=== PATIENT | female | born 1950 | race Caucasian/White ===

== ENCOUNTER → 2019-09-07 | Day surgery (SDC) | payer OTHER ==
--- NOTE | 2019-09-07 12:15 | RAD REPORT ---
EXAM DESCRIPTION: US - Breast Core BX w/US Guidance - 09/07/2019 11:37 am CLINICAL HISTORY: R92.8 COMPARISON: August 23 ultrasound and mammogram studies TECHNIQUE: The patient presents for ultrasound-guided biopsy of a previously detailed 15 mm right br east mass. The ultrasound-guided core biopsy procedure, risks and alternatives were discussed with the patient i n detail. After answering all questions, both oral and written consent were obtained. Time out proced ure was performed. The patient had no contraindicated allergy or medication history. Preliminary imaging identified the right breast mass. The breast was prepped and draped in the usua l sterile fashion. From an inferior approach, skin and deeper tissues were anesthetized with 1% lidoc josé. Under direct sonographic visualization a 14 gauge vacuum assisted core biopsy needle was advanc ed and placed at the margin of the mass. There were a total of 2 core biopsies obtained under direct sonographic guidance. The mass did appear to have distortion in contour supporting transit of the bio psy needle through the small mass. At the conclusion of the procedure a localization clip was placed under sonographic guidance. Post biopsy imaging showed no hematoma or measurable bleeding within the breast. Hemostasis was obtai deana at the skin site with a sterile bandage placed. Post procedure care and precaution instructions were given to the patient. IMPRESSION: 1. Ultrasound-guided core biopsy was performed of the right breast mass. All obtained ma terial was given to pathology for histologic assessment. 2. Post biopsy localization clip was placed under ultrasound guidance.
== END ==
LOC: DS 09:37
PROVIDERS: ATTEND Internal Medicine
DX: C50.911 Malignant neoplasm of unspecified site of right female breast (principal); Z17.1 Estrogen receptor negative status [ER-]
CPT/HCPCS: 19083; 88305

== ENCOUNTER 2019-10-17 07:05 | Day surgery (SDC) | payer OTHER ==
--- NOTE | 2019-10-15 15:49 | RAD REPORT ---
EXAM DESCRIPTION: RAD - Chest Pa And Lat (2 Views) - 10/15/2019 3:36 pm CLINICAL HISTORY: pre op, pending right mastectomy COMPARISON: None TECHNIQUE: Frontal and lateral views of the chest were obtained. FINDINGS: The lungs are normal volume with no mass or pulmonary nodule identifiable. No acute infilt rate. No significant failure or volume overload. Patient has a mild prominence of the interstitial pa ttern believed to be baseline. Heart size is normal and central vasculature is within normal limits. No pleural effusion or pneu mothorax seen. No acute bony finding noted. No aortic abnormality. IMPRESSION: No acute cardiopulmonary process.
[2019-10-15 16:01] LABS: Absolute Lymphocytes (CBC) 1.3 K/uL (0.7-4.9); Basophils % 0.8 % (0-1.3); Hematocrit 35.9 % (36.0-45.0); Lymphocytes % 22.9 % (15.3-44.8); MPV 9.1 fL (7.6-11.3); RBC Red Blood Cell Count 4.29 M/uL (3.86-4.86)
[2019-10-15 16:09] LABS: BUN Blood Urea Nitrogen 18 mg/dL (7-18); Bicarbonate 27 mmol/L (21-32); Glucose Level 87 mg/dL (74-106); Potassium 3.9 mmol/L (3.5-5.1); Sodium Level 139 mmol/L (136-145)
--- NOTE | 2019-10-16 10:57 | EKG ---
Test Date: 2019-10-15 Test Time: 15:14:42 [employer] Glazer: CHELSEA MEASUREMENT RESULTS: Intervals: Rate: 63 MA: 184 QRSD: 94 QT: 458 QTc: 468 [place]: P: 67 MA: 184 QRS: -39 T: 62 INTERPRETIVE STATEMENTS: Normal sinus rhythm Left axis deviation Abnormal ECG No previous ECG available for comparison Electronically Signed On 10-16-19 10:54:07 CDT by Alejandro Ramirez
[2019-10-17] MEDS ORDERED: CEFAZOLIN/SWI 1gm 1 GM/10 ML SYR ONE (07:44)
[2019-10-17] MEDS ORDERED: Ringers Lactate 1,000 ML IV ONE (07:44)
[2019-10-17] MEDS ORDERED: METHYLENE BLUE 0.5% 10 ML AMP ONE (07:55)
--- NOTE | 2019-10-17 08:46 | RAD REPORT ---
EXAM DESCRIPTION: NM - Lymphoscintigraphy - 10/17/2019 8:19 am CLINICAL HISTORY: Breast cancer COMPARISON: None. TECHNIQUE: Four injections of 0.1 millicuries technetium filtered sulfur colloid administered into t he the chris arerolar region of the right breast. The injections were placed at Twelve o'clock, 3 o'cl ock, 6 o'clock and 9 o'clock positions. Subsequently a scintigram was obtained which demonstrated the radiotracer within these locations. IMPRESSION: Right breast lymphoscintigram
--- NOTE | 2019-10-17 08:55 | RAD REPORT ---
EXAM DESCRIPTION: US - Brst,Preop NL Wire Init w/Guid - 10/17/2019 8:45 am CLINICAL HISTORY: Breast cancer FINDINGS: The skin and breast tissues were anesthetize with Lidocaine. Under sonographic guidance a 5 cm Kopan's hook wire was placed into the the dominant right breast mass within the upper-outer quad rant. The patient experienced no immediate complication. IMPRESSION: Ultrasound-guided wire localization of the dominant right breast mass
[2019-10-17] MEDS ORDERED: FENTANYL CITR 100 MCG/2 ML ONE ×2 (09:26→10:13)
[2019-10-17] MEDS ORDERED: propofoL 200 MG/20 ML VIAL IV ONE (09:26)
[2019-10-17] MEDS ORDERED: ROCURONIUM 50 MG/5 ML VIAL IV ONE (09:26)
[2019-10-17] MEDS ORDERED: ONDANSETRON 4 MG/2 ML VIAL ONE ×2 (09:27→10:40)
[2019-10-17] MEDS ORDERED: dexAMETHasone 10 MG/ML VIAL ONE (09:27)
[2019-10-17] MEDS ORDERED: LIDOCAINE 2% MPF 5 ML VIAL ONE (09:27)
[2019-10-17] MEDS ORDERED: GLYCOPYRROLATE 0.2 MG/ML SYR ONE (11:19)
[2019-10-17] MEDS ORDERED: NEOSTIGMINE 1 MG/ML -5 ML ONE (11:19)
[2019-10-17] MEDS ORDERED: MEPERIDINE HCL 25 MG/ML SYR ONE (12:56)
--- NOTE | 2019-10-17 13:17 | OP ---
Date of Procedure: 10/17/2019 Surgeon: Colt Cam MD Woodworker Helper: VY Vincent. Preoperative Diagnosis: Right breast cancer. Postoperative Diagnosis: Right breast cancer. Procedure: Right breast mastectomy with needle localization, sentinel node biopsy, and axillary diss ection. Estimated Blood Loss: Minimal. Specimen: Right breast margins free, sentinel node was positive, and axillary dissection was perform ed. Findings: As above. Anesthesia: General. Complications: None. Drains: TRINO #10 flat x2. Disposition: Patient tolerated the procedure in stable condition, taken to Recovery in good general condition. Description Of Procedure: Patient was brought to the OR and placed in supine position. General anes thesia was begun. Then under sterile condition methylene blue injected around the nipple-areolar com plex and breast massaged and prepped and draped in usual sterile fashion. A sentinel node identified , all counts were recorded in the medical record and then frozen section revealed metastatic disease and axillary dissection had to be performed. First, the breast was removed by creating a 20 x 10 cm ellipse of skin around the needle localization in the upper outer quadrant and then flaps were create d superiorly to the clavicle, medially to the border of the sternum, inferiorly to the insertion of t he rectus abdominis muscle, and laterally to the anterior portion of the latissimus dorsi. All breas t tissues were removed and sent to Pathology. The margin checked revealed the margins were free. Ax illary dissection was performed by identifying the axillary vein, thoracodorsal neurovascular bundle, long thoracic neurovascular bundle. All lymph nodes in this area, they were several and large ones, were removed. 3-0 silk and vascular clips were utilized as necessary. Elvira lymph nodes were samp led as well and then the entire axilla and chest wall was irrigated. Effluent was clear. There was no evidence of bleeding. Subsequently, 2 Olegario-Perez drain, 1 under the flap, 1 in the axilla was placed, secured with 3-0 nylon, then 2-0 chromic and 3-0 chromic were used to approximate the subcuta neous tissue and close the skin. Sterile dressing was applied. Patient was awakened, taken to [facility] in good general condition. Discharge Note: The patient will go to day surgery and home when stable. Disposition: Home. Condition: Stable. Discharge Instructions: Resume home medications and diet. Activity as tolerated. No heavy lifting. Keep dressing clean and dry, sponge bathe only. Record TRINO q.12. Bring record to office. Home a lt will be arranged for the patient. Tylenol No. 3 one tablet p.o. q.4 p.r.n. pain, Keflex 500 mg p .o. q.6. JUSTINE/PEDRO Voice ID: [id number] Report ID: [id number]
[2019-10-17] MEDS ORDERED: HYDROMORPHONE HCL 1 MG/ML INJ ONE (13:19)
[2019-10-17] MEDS ORDERED: HYDROCODONE/APAP 7.5/325 MG TAB ONE (14:21)
[2019-10-17 14:43] VITALS: BP 135/77; TEMP 97.2; O2SAT 93
== END 2019-10-17 15:09 | disposition home or self-care (01) ==
LOC: OR 07:05
PROVIDERS: ATTEND Surgery
PROC: 0HTT0ZZ Resection of Right Breast, Open Approach (ICD-10-PCS; principal; 2019-10-17 09:00)
PROC: 07T50ZZ Resection of Right Axillary Lymphatic, Open Approach (ICD-10-PCS; 2019-10-17 09:00)
DX: C50.411 Malignant neoplasm of upper-outer quadrant of right female breast (principal); C77.3 Secondary and unspecified malignant neoplasm of axilla and upper limb lymph nodes; Z17.1 Estrogen receptor negative status [ER-]; Z11.59 Encounter for screening for other viral diseases; R94.31 Abnormal electrocardiogram [ECG] [EKG]; J44.9 Chronic obstructive pulmonary disease, unspecified; Z79.899 Other long term (current) drug therapy
CPT/HCPCS: 19307; 38900; 93005; 85025; 80048; 36415; 88331; 88332; 88307 ×3; 71046; 19285; 78195; U0002; J2704; J3010 ×2; J1100; J2175; J1170; J2710; J0690; J7120; J2405 ×2; A9541; 88305; 88333

== ENCOUNTER 2019-12-14 07:53 | Day surgery (SDC) | payer OTHER, SELFPAY ==
[2019-12-12 15:35] LABS: Absolute Lymphocytes (CBC) 0.9 K/uL (0.7-4.9); Basophils % 0.4 % (0-1.3); Hematocrit 34.7 % (36.0-45.0); Lymphocytes % 17.5 % (15.3-44.8); MPV 9.8 fL (7.6-11.3); RBC Red Blood Cell Count 4.07 M/uL (3.86-4.86)
[2019-12-14] MEDS ORDERED: Ringers Lactate 1,000 ML IV ONE (09:17)
[2019-12-14] MEDS ORDERED: ALBUTEROL 2.5 MG/3 ML NEB SOL ONE (09:32)
[2019-12-14] MEDS ORDERED: NS 0.9% VIAL 20 ML ONE (09:49)
[2019-12-14] MEDS ORDERED: HEPARIN 5000 UNIT/ML 1 ML VIAL ONE (09:50)
[2019-12-14] MEDS ORDERED: LIDOCAINE 1% MPF 30 ML VIAL ONE (09:50)
[2019-12-14] MEDS ORDERED: LIDOCAINE 2% MPF 5 ML VIAL ONE (10:18)
[2019-12-14] MEDS ORDERED: propofoL 200 MG/20 ML VIAL IV ONE (10:18)
[2019-12-14] MEDS ORDERED: FENTANYL CITR 100 MCG/2 ML ONE (10:18)
[2019-12-14] MEDS ORDERED: MIDAZOLAM HCL 2 MG/2 ML INJ ONE (10:18)
[2019-12-14] MEDS: CEFAZOLIN/SWI 1gm 0 GM/0 ML SYR ONE ×2 (10:41→10:55)
[2019-12-14] MEDS ORDERED: EPHEDRINE SULF 50 MG/ML VIAL ONE (10:56)
[2019-12-14] MEDS ORDERED: dexAMETHasone 10 MG/ML VIAL ONE (11:13)
--- NOTE | 2019-12-14 11:25 | RAD REPORT ---
EXAM DESCRIPTION: RAD - Fluoroscopy <1 Hour - 12/14/2019 11:19 am CLINICAL HISTORY: Venous catheter insertion. PORT A CATH COMPARISON: Brst,Preop NL Wire Init w/Guid dated 10/17/2019 FINDINGS: Fluoroscopic imaging is submitted from placement of a venous catheter. Details of the pro cedure not available. Fluoroscopy time: 0.8 minutes
[2019-12-14] MEDS ORDERED: KETOROLAC 30 MG/ML INJ ONE (11:29)
--- NOTE | 2019-12-14 11:52 | RAD REPORT ---
EXAM DESCRIPTION: RAD - Chest Single View - 12/14/2019 11:48 am CLINICAL HISTORY: s/p port a cath Chest pain. COMPARISON: Chest Pa And Lat (2 Views) dated 10/15/2019 FINDINGS: Portable technique limits examination quality. Left-sided venous catheter is in place with tip in the SVC. No postprocedure pneumothorax. Mild inter stitial pulmonary edema seen. The heart is moderately enlarged. IMPRESSION: No postprocedure pneumothorax.
[2019-12-14 13:31] VITALS: BP 128/65; TEMP 97.2; O2SAT 100
[2019-12-14] MEDS ORDERED: CEFAZOLIN/SWI 1gm 1 GM/10 ML SYR ONE (13:49)
--- NOTE | 2019-12-14 21:13 | OP ---
Date of Procedure: 12/14/2019 Surgeon: Colt Cam MD Preoperative Diagnosis: Right breast cancer. Postoperative Diagnosis: Right breast cancer. Procedure: Left IJ Port-A-Cath placement and interpretation of intraoperative fluoroscopy. Estimated Blood Loss: Minimal. Specimen: None. Findings: Normal anatomy. Anesthesia: General. Complications: None. The patient tolerated the procedure in stable condition, taken to Recovery in good general condition. Procedure In Detail: The patient was brought to the OR and placed in supine position. General anest hesia begun. The patient was prepped and draped in usual sterile fashion. Marcaine 0.5% was infiltr ated locally and then an 18-gauge needle was used to access the left IJ vein. Guidewire passed and p osition confirmed with fluoroscopy. A 3 cm counterincision was made on the left anterior chest, pock et created, and then catheter tunneled between the 2 wounds and Seldinger technique used. Tip of the catheter was placed in the SVC under fluoroscopy. Catheter cut to appropriate size and attached to the Port-A-Cath device. Port-A-Cath device was attached to the subcutaneous tissue with 3-0 Vicryl a nd then catheter flushed with heparin and port flushed with heparin and packed with heparin with good blood flow. Then, 3-0 chromic used to approximate the subcutaneous tissue and close the skin. Ster ile dressing was applied. The patient was awakened and taken to Recovery in good general condition. The patient will have a chest x-ray and if okay, will go to day surgery and home when stable. Disposition: Home. Condition: Stable. Discharge Instructions: Resume home medications and diet. Activity as tolerated. No heavy lifting. Remove outer dressing in 2 days. Shower. Keep Steri-Strips on at all times. Follow up in offi ce in 2 weeks. Call for appointment. [facility]. JUSTINE/PEDRO Voice ID: [id number] Report ID: [id number]
== END 2019-12-14 12:50 | disposition home or self-care (01) ==
LOC: OR 07:53
PROVIDERS: ATTEND Surgery
PROC: 02HV33Z Insertion of Infusion Device into Superior Vena Cava, Percutaneous Approach (ICD-10-PCS; 2019-12-14)
PROC: 0JH63XZ Insertion of Tunneled Vascular Access Device into Chest Subcutaneous Tissue and Fascia, Percutaneous Approach (ICD-10-PCS; principal; 2019-12-14 09:00)
DX: C50.911 Malignant neoplasm of unspecified site of right female breast (principal); Z20.828 Contact with and (suspected) exposure to other viral communicable diseases; J44.9 Chronic obstructive pulmonary disease, unspecified; Z79.899 Other long term (current) drug therapy
CPT/HCPCS: 85025; 36415; 71045; 36561; U0002; J2704; J1644 ×2; J2250; J3010; J1100; J0690; J7120; C1788; 76000

== ENCOUNTER 2020-05-15 07:38 | Day surgery (SDC) | payer OTHER, SELFPAY ==
[2020-05-15] MEDS ORDERED: Ringers Lactate 1,000 ML IV ONE (08:17)
[2020-05-15] MEDS ORDERED: CEFAZOLIN/SWI 1gm 1 GM/10 ML SYR ONE (08:18)
--- NOTE | 2020-05-15 09:26 | OP ---
Date of Procedure: 05/15/2020 Surgeon: Colt Cam MD Plant Operator Helper: None. Preoperative Diagnosis: Right breast cancer. Postoperative Diagnosis: Right breast cancer. Procedure: Removal of left chest Port-A-Cath. Estimated Blood Loss: Minimal. Specimen: Port-A-Cath device. Findings: Normal anatomy. Anesthesia: MAC. Complications: None. Disposition: The patient tolerated the procedure in stable condition and taken to Recovery in good g eneral condition. Procedure In Detail: The patient was brought to the OR and placed in supine position. MAC anesthesi a began. The patient was prepped and draped in sterile fashion. Lidocaine 1% infiltrated locally. A 15-blade was used to make a 2 cm incision over the Port-A-Cath on the left anterior chest. Subcuta neous tissue divided. Port identified and freed from the surrounding tissue with sharp and blunt dis section and then removed and sent to pathology for identification. Wound irrigated. Bleeding contro lled with cautery and 3-0 chromic used to approximate the subcutaneous tissue and close the skin. St erile dressing was applied. The patient was awakened and taken to Recovery in good general condition . Discharge Note: The patient will go to Day Surgery and home when stable. Disposition: Home. Condition: Stable. Discharge Instructions: Resume home medications and diet. Activity as tolerated. Remove outer dres sing in 2 days. Shower. Keep wound clean and dry. Follow up in my office 2 weeks. Call for appoin tment. Tylenol No.3 one tablet p.o. q.4 p.r.n. pain. /MODL Voice ID: [id number] Report ID: [id number]
[2020-05-15 09:48] VITALS: BP 134/88; TEMP 97.2; O2SAT 97
== END 2020-05-15 10:30 | disposition home or self-care (01) ==
LOC: OR 07:38
PROVIDERS: ATTEND Surgery
PROC: 0JPT0WZ Removal of Totally Implantable Vascular Access Device from Trunk Subcutaneous Tissue and Fascia, Open Approach (ICD-10-PCS; principal; 2020-05-15 08:30)
DX: Z45.2 Encounter for adjustment and management of vascular access device (principal); C50.911 Malignant neoplasm of unspecified site of right female breast; Z20.822 Contact with and (suspected) exposure to COVID-19
CPT/HCPCS: 36415; 84132; 88300; 36590; U0002; J0690; J7120

== ENCOUNTER 2024-12-07 14:55 | Emergency (ER) | payer MEDICARE ==
--- OUTSIDE RECORDS SUMMARY | 2024-12-07 15:07 | XMS REPORT | Continuity of Care Document ---
Author Name Unknown Address [address] [place] [address] [facility] [place] Address [address] [place] [address] Care Team Providers Care Rn Nursery Name Role Phone ANGELINA BOWEN Primary Care Physician Unavailab Angelina Rea Attending Clinician Unavailable Xiomy Le Attending Clinician Unavailable CHAKA JOSÉ Attending Clinician Unavailable DELORIS VARELA Attending Clinician Unavailradha José MD, Chaka Attending Clinician [phone] Cara Devries Attending Clinician Afsaneh Giron Attending Clinician Chaim KEVIN, Marine Ga Attending Clinician Unavail able OLYA HAMMER Attending Clinician Unavailable GÓMEZ ETIENNE Attending Clinician Unavailable Avery LEE, Charley Attending Clinician [phone] Thais LEE, Oracio Amaral Attending Clinician [phone] Sindhu Stevens MD Attending Clinician Doctor Unassigned, [place] Attending Clinician U aust[place]ailSINDHU Bowden Attending Clinician Unavailable Pob, [facility] Attending Clinician UnavailVAMSI Perales Attending Clinician Unavailable Ajibade_O_AH Attending Clinician Unavailable Ige-Zay_J_AH Attending Clinician Unavailable LINDA ALLEN Admitting Clinician Unavailable GÓMEZ ETIENNE Admitting Clinician Unavailable Ajibade_O_AH Admitting Clinician Unavailable Ige-Odunbethany_J_AH Admitting Clinician Unavailable Payers Payer Name Policy Type Policy Number Effective Date Expirati on Date Source [employer] OON [id number] 00:00:00 [employer] (MEDICARE REPLACEMENT HMO) [id number] 2021 00:00:00 [place] [id number] [facility]PLAC[facility]/ADVAN TAGE - HMO) [id number] 00:00:00 Problems Condition Name Condition Details Condition Category Status Onset Date Resolution Date Last Treatment Date Treating Clinician Comments Source Obesity (BMI 30-39.9) Obesity (BMI 30-39.9) Disease Active 10-16 00:00: 00 [facility] Other specified anemias Other specified anemias Disease Active 10-16 00:00: 00 [facility] Fever in adult Fever in adult Disease Active 10-15 00:00: 00 [facility] Septic shock Septic shock Disease Active 10-15 00:00: 00 [facility] Essential hypertensi on Essential hypertensi on Disease Active 09-29 00:00: 00 [facility] Elevated brain natriureti c peptide (BNP) level Elevated brain natriureti c peptide (BNP) level Disease Active 09-29 00:00: 00 [facility] Elevated troponin I level Elevated troponin I level Disease Active 09-29 00:00: 00 [facility] Paroxysmal SVT (supravent ricular tachycardi a) Paroxysmal SVT (supravent ricular tachycardi a) Disease Active 09-29 00:00: 00 [facility] PAF (paroxysma l atrial fibrillati on) PAF (paroxysma l atrial fibrillati on) Disease Active 09-29 00:00: 00 [facility] Encounter for pre-operat jorgito cardiovasc ular clearance Encounter for pre-operat jorgito cardiovasc ular clearance Disease Active 09-29 00:00: 00 [facility] Worried well Worried well Disease Active 09-27 00:00: 00 [facility] No known active problems No known active problems Disease [facility] Hypothyroi dism Hypothyroi dism, unspecifie d Problem [facility] Chronic obstructiv e pulmonary disease Chronic obstructiv e pulmonary disease, unspecifie d Problem [facility] Tobacco user Nicotine dependence , cigarettes , in remission Problem [facility] [id number] Pure hyperchole sterolemia Problem [facility] [id number] Personal history of malignant neoplasm of breast Problem [facility] Decreased hearing Decreased hearing Problem [facility] Hearing loss Hearing loss Problem [facility] Urinary incontinen ce Unspecifie d urinary incontinen ce Problem [facility] Peripheral vascular disease 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 Problem [facility] [id number] Irregular heart beat Problem [facility] [id number] Primary osteoarthr itis of left knee Problem [facility] [id number] Primary osteoarthr itis of right knee Problem [facility] Arthritis of both knees Arthritis of both knees Problem [facility] [id number] Arthritis of knee, right Problem [facility] Thrombophi alfredito Other thrombophi alfredito Problem [facility] [id number] Estrogen receptor negative status [ER-] Problem [facility] Consulting with home care service [facility], active care coordinati on Problem [facility] [id number] Bilateral lower extremity edema Problem [facility] [id number] Inability to acquire transporta tion Problem [facility] [id number] Mild chronic anemia Problem [facility] Transition from self-care to home-healt h care Need for home health care Problem [facility] [id number] Acquired hypothyroi dism Problem [facility] [id number] Chronic bronchitis , unspecifie d chronic bronchitis type Problem [facility] [id number] Primary osteoarthr itis of both knees Problem [facility] [id number] Malignant neoplasm of unspecifie d site of right female breast Problem [facility] Lymphedema Lymphedema Problem [facility] Neutropeni a Neutropeni a, unspecifie d Problem [facility] 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 Problem [facility] 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 Problem [facility] 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 of Tobacco Use [facility] Sex Assigned At [facility] History of Social function 2021-02-23 00:00:00 2021-02-23 00:00:00 [facility] Tobacco use and exposure 2020-12-17 00:00:00 2020-12-17 00:00:00 Former smokeless tobacco user [facility] Smoking Status Start Date Stop Date Source Never Smoker [facility] Ex-smoker 2020-12-17 00:00:00 2020-12-17 00:00:00 [facility] Medications Ordered Medication Name Filled Medication Name Start Date Stop Date Current Medication? Ordering Clinician Indication Dosage Frequency Signature (SIG) Comments Components Source aspirin 81 mg EC tablet 10-24 00:00: 00 Yes [id number] 81mg Take 1 tablet by mouth in the morning. [facility] calcium carbonate 500 mg calcium (1,250 mg) tablet 10-23 00:00: 00 11-23 04:59 :00 Yes [id number] 500mg Take 1 tablet by mouth in the morning and 1 tablet in the evening. Take with meals. Do all this for 30 days. [facility] tranexamic acid (CYKLOKAPRO N) 1,000 mg/10 mL (100 mg/mL) 1,000 mg in NaCl 0.9% (NS) 110 mL V2B IV piggyback tranexamic acid (CYKLOKAPRO N) 1,000 mg/10 mL (100 mg/mL) 1,000 mg in NaCl 0.9% (NS) 110 mL V2B IV piggyback 10-22 22:00: 00 10-22 21:53 :00 Yes 1000mg at 220 mL/hr, 1,000 mg, IV Piggyback, ONCE, 1 dose, On Tue10/22/24 at 1700, Routine [facility] vancomycin (VANCOCIN) 1,000 mg in NaCl 0.9% (NS) 250 mL V2B IV Piggyback vancomycin (VANCOCIN) 1,000 mg in NaCl 0.9% (NS) 250 mL V2B IV Piggyback 10-22 20:15: 00 10-23 20:28 :33 Yes 1000mg 1,000 mg, IV Piggyback, Q12H ABX, 10 doses, First dose on Tue10/22/24 at 1515, Last dose on Tue10/27/24 at 0315, Administer over 60 Minutes, 250 mL, Reason for Anti-Infec tive: Empiric Therapy for Suspected Infection, Empiric Therapy Site: Skin / Soft tissue, Duration of therapy: As Defined in Treatment / Therapy Plan [facility] vancomycin placeholder : dosing by pharmacy 10-22 19:14: 39 10-23 20:28 :33 No Routine, Rx Placeholde r, Starting on Tue10/22/24 at 1414, Until Tue10/23/24 at 1528 [facility] NaCl 0.9% (NS) injection 10 mL 10-22 17:27: 07 10-23 20:28 :33 No 10mL 10 mL, Slow IV Push, PRN, Starting on Tue10/22/24 at 1227, Until Tue10/23/24 at 1528, Routine, line maintenanc e [facility] lidocaine 1% (PF) (XYLOCAINE) injection 5 mL 10-22 17:27: 07 10-22 19:00 :00 No 5mL 5 mL, Subcutaneo us, PRN, 1 dose, Starting on Tue10/22/24 at 1227, Until Tue10/22/24 at 1400, Routine, Local anesthesia [facility] magnesium oxide (MAG-OX 400) 400 mg (241.3 mg magnesium) tablet 400 mg magnesium oxide (MAG-OX 400) 400 mg (241.3 mg magnesium) tablet 400 mg 10-22 14:45: 00 10-23 01:40 :00 Yes 400mg 400 mg, Oral, BID, 2 doses, First dose on Tue10/22/24 at 0945, Last dose on Tue10/22/24 at 2000, Routine [facility] aspirin EC tablet 81 mg aspirin EC tablet 81 mg 10-22 14:00: 00 Yes 81mg 81 mg, Oral, DAILY, First dose on Tue10/22/24 at 0900, Until Discontinu ed, Routine [facility] cholecalcif paris (vitamin D3) tablet 2,000 Units cholecalcif paris (vitamin D3) tablet 2,000 Units 10-22 14:00: 00 10-23 20:28 :33 Yes 2000U 2,000 Units, Oral, DAILY, First dose on Tue10/22/24 at 0900, Until Discontinu ed, Routine [facility] amoxicillin -pot clavulanate (AUGMENTIN) 875-125 mg per tablet 1 tablet amoxicillin -pot clavulanate (AUGMENTIN) 875-125 mg per tablet 1 tablet 10-22 01:00: 00 10-22 20:48 :25 Yes 1{tbl} 1 tablet, Oral, BID, 10 doses, First dose on Tue10/21/24 at 2000, Last dose on Tue10/26/24 at 0800, Routine, Reason for Anti-Infec tive: Documented Infection, Documented Infection Site: Skin / Soft Tissue, Duration of therapy: 10 days [facility] morphine (2 mg/mL) injection 2 mg morphine (2 mg/mL) injection 2 mg 10-21 23:42: 44 10-23 20:28 :33 Yes 2mg 2 mg, Slow IV Push, Q4HPRN, Starting on Tue10/21/24 at 1842, Until Tue10/23/24 at 1528, Routine, Pain (scale 7-10) [facility] traMADoL (ULTRAM) tablet 50 mg traMADoL (ULTRAM) tablet 50 mg 10-21 23:42: 32 10-22 16:01 :23 Yes 50mg 50 mg, Oral, Q6HPRN, Starting on Tue10/21/24 at 1842, Until Tue10/22/24 at 1101, Routine, Pain (scale 4-6) [facility] magnesium oxide (MAG-OX 400) 400 mg (241.3 mg magnesium) tablet 400 mg magnesium oxide (MAG-OX 400) 400 mg (241.3 mg magnesium) tablet 400 mg 10-21 15:30: 00 10-21 17:21 :00 Yes 400mg 400 mg, Oral, ONCE, 1 dose, On Tue10/21/24 at 1030, Routine [facility] vancomycin (VANCOCIN) 1,250 mg in NaCl 0.9% (NS) 250 mL V2B IV Piggyback vancomycin (VANCOCIN) 1,250 mg in NaCl 0.9% (NS) 250 mL V2B IV Piggyback 10-20 02:00: 00 10-22 00:08 :56 Yes 1250mg 1,250 mg, IV Piggyback, Q24H ABX, 5 doses, First dose (after last modificati on) on Tue10/19/24 at 2100, Last dose on Tue10/23/24 at 2100, Administer over 90 Minutes, 250 mL, Reason for Anti-Infec tive: Empiric Therapy for Suspected Infection, Empiric Therapy Site: Skin / Soft tissue, Duration of therapy: 5 days [facility] albuterol (PROVENTIL) 2.5 mg /3 mL (0.083 %) nebulizer solution 2.5 mg 10-19 14:45: 00 10-19 14:41 :00 No 2.5mg 2.5 mg, Inhalation , Once, 1 dose, On Tue10/19/24 at 0945, Routine [facility] sodium chloride 0.9 % irrigation solution 10-19 13:53: 00 Yes PRN, Starting on Tue10/19/24 at 0853, Until Discontinu ed, Intra-op [facility] vancomycin (VANCOCIN) 1 g in sodium chloride 0.9 % irrigation 10-19 13:10: 00 10-22 13:43 :58 No PRN, Starting on Tue10/19/24 at 0810, Until Tue10/22/24 at 0843, 1,000 mL, Intra-op [facility] calcium carbonate (OSCAL-500) tablet 500 mg calcium carbonate (OSCAL-500) tablet 500 mg 10-18 15:00: 00 Yes 500mg 500 mg, Oral, BID MEALS, First dose on Tue10/18/24 at 1000, Until Discontinu ed, Routine [facility] midodrine (PROAMATINE ) tablet 2.5 mg midodrine (PROAMATINE ) tablet 2.5 mg 10-18 01:00: 00 10-21 23:31 :50 Yes 2.5mg 2.5 mg, Oral, TID, First dose (after last modificati on) on Tue10/17/24 at 2000, Until Discontinu ed, Routine [facility] iopamidol (ISOVUE 370-500 mL) injection 82 mL 10-17 22:26: 00 10-17 22:45 :00 No [id number] 82mL 82 mL, Intravenou s, ONCE, 1 dose, On Tue10/17/24 at 1745, Routine [facility] vancomycin (VANCOCIN) 1,250 mg in NaCl 0.9% (NS) 250 mL V2B IV Piggyback vancomycin (VANCOCIN) 1,250 mg in NaCl 0.9% (NS) 250 mL V2B IV Piggyback 10-17 01:00: 00 10-19 11:21 :18 Yes 15mg/kg 1,250 mg (rounded from 1,279.5 mg = 15 mg/kg ?85.3 kg), IV Piggyback, Q24H ABX, 5 doses, First dose on Tue10/16/24 at 2000, Last dose on Tue10/20/24 at 1999, Administer over 90 Minutes, 250 mL, Reason for Anti-Infec tive: Empiric Therapy for Suspected Infection, Empiric Therapy Site: Skin / Soft tissue, Duration of therapy: 5 days [facility] ferrous sulfate tablet 325 mg ferrous sulfate tablet 325 mg 10-16 14:00: 00 10-23 20:28 :33 Yes 325mg 325 mg, Oral, DAILY, First dose on Tue10/16/24 at 0900, Until Discontinu ed, Routine [facility] polyethylen e glycol 3350 powder 17 g polyethylen e glycol 3350 powder 17 g 10-16 14:00: 00 10-23 20:28 :33 Yes 17g 17 g, Oral, DAILY, First dose on Tue10/16/24 at 0900, Until Discontinu ed, Routine [facility] NORepinephr ine (LEVOPHED) 4 mg/250 mL in 0.9% NaCl infusion NORepinephr ine (LEVOPHED) 4 mg/250 mL in 0.9% NaCl infusion 10-16 13:06: 14 10-21 23:42 :18 Yes .05ug/k g/min 0.05-1.5 mcg/kg/min ?85.5 kg (16.0313-4 80.9375 mL/hr, rounded to 16.03-480. 94 mL/hr), IV Infusion, TITRATE, Starting on Tue10/16/24 at 0806, Until Tue10/21/24 at 1842, Routine, MAP Goal > or = 65 mmHg [facility] midodrine (PROAMATINE ) tablet 5 mg midodrine (PROAMATINE ) tablet 5 mg 10-16 13:00: 00 10-17 23:24 :19 Yes 5mg 5 mg, Oral, TID, First dose (after last modificati on) on Tue10/16/24 at 0800, Until Discontinu ed, Routine [facility] calcium gluconate 2 g in NaCl 100 mL (ISO-OSM) RTU IV infusion 2 g calcium gluconate 2 g in NaCl 100 mL (ISO-OSM) RTU IV infusion 2 g 10-16 13:00: 00 10-16 13:58 :00 Yes 2g 2 g, IV Infusion, at 200 mL/hr Administer over 30 Minutes, ONCE, 1 dose, On Tue10/16/24 at 0800, Routine [facility] ipratropium -albuteroL (DUONEB) 0.5 mg-3 mg(2.5 mg base)/3 mL nebulizer solution 3 mL 10-16 11:48: 10 10-23 20:28 :33 No 3mL 3 mL, Inhalation , QIDPRN, Starting on Tue10/16/24 at 0648, Until Tue10/23/24 at 1528, Routine, Wheezing, Shortness of Breath, Bronchospa sm, Chest tightness [facility] midodrine (PROAMATINE ) tablet 2.5 mg midodrine (PROAMATINE ) tablet 2.5 mg 10-16 10:00: 00 10-16 10:41 :00 Yes 2.5mg 2.5 mg, Oral, Once, 1 dose, On Tue10/16/24 at 0500, Routine [facility] ceFEPIme (MAXIPIME) 1,000 mg in NaCl 0.9% (NS) 100 mL MINI-BAG ceFEPIme (MAXIPIME) 1,000 mg in NaCl 0.9% (NS) 100 mL MINI-BAG 10-16 09:00: 00 10-19 05:57 :00 Yes 1000mg 1,000 mg, IV Piggyback, Q8H ABX, 9 doses, First dose (after last reorder) on Tue10/16/24 at 0400, Last dose on Tue10/18/24 at 2000, Administer over 4 Hours, 100 mL, Reason for Anti-Infec tive: Documented Infection, Documented Infection Site: Skin / Soft Tissue, Duration of therapy: Once (ED) [facility] methocarbam oL (ROBAXIN) tablet 500 mg methocarbam oL (ROBAXIN) tablet 500 mg 10-16 06:45: 00 10-23 20:28 :33 Yes 500mg 500 mg, Oral, TID, First dose on Tue10/16/24 at 0145, Until Discontinu ed, Routine [facility] acetaminoph en (TYLENOL) tablet 650 mg acetaminoph en (TYLENOL) tablet 650 mg 10-16 06:39: 36 10-23 20:28 :33 Yes 650mg 650 mg, Oral, Q6HPRN, Starting on Tue10/16/24 at 0139, Until Tue10/23/24 at 1528, Routine, Pain (scale 1-3), Temp > 38 C [facility] NORepinephr ine (LEVOPHED) 4 mg/250 mL in 0.9% NaCl infusion 10-16 04:36: 06 10-16 13:06 :31 No .05ug/k g/min 0.05-1.5 mcg/kg/min ?85.5 kg (16.0313-4 80.9375 mL/hr, rounded to 16.03-480. 94 mL/hr), IV Infusion, TITRATE, Starting on Tue10/15/24 at 2336, Until Tue10/16/24 at 0806, Routine, MAP Goal > or = 65 mmHg [facility] iopamidol (ISOVUE 370-500 mL) injection 75 mL 10-16 04:00: 00 10-16 04:00 :00 No [id number] 75mL 75 mL, Intravenou s, ONCE, 1 dose, On Tue10/15/24 at 2300, Routine [facility] acetaminoph en (OFIRMEV) IV piggyback 1,000 mg 10-16 01:30: 00 10-16 01:43 :00 No 1000mg 1,000 mg, IV Piggyback, at 400 mL/hr Administer over 15 Minutes, ONCE, 1 dose, On Tue10/15/24 at 2030, OLIVIA, Is the patient strict NPO and unable to tolerate oral medication s? Yes [facility] amiodarone 150 mg/100 mL (NEXTERONE) RTU infusion 150 mg 10-16 00:33: 00 10-16 01:25 :00 No 150mg IV Piggyback, at 300 mL/hr, ONCE, 1 dose, On Tue10/15/24 at 1945, OLIVIA, All amiodarone infusions must be administer ed using a 0.22 micron in line filter. Administer via central line if available. Amiodarone infusions with concentrat ions > 2 mg/mL must be administer ed via central line. [facility] midodrine (PROAMATINE ) tablet 2.5 mg 10-16 00:12: 00 10-16 00:31 :00 No 2.5mg 2.5 mg, Oral, ONCE NOW, 1 dose, On Tue10/15/24 at 1915, OLIVIA [facility] NaCl 0.9% (NS) bolus infusion 1,000 mL 10-16 00:11: 00 10-16 01:55 :00 No 1000mL at 999 mL/hr, 1,000 mL, IV Infusion, ONCE, 1 dose, On Tue10/15/24 at 1915, OLIVIA [facility] digoxin (LANOXIN) injection 500 mcg 10-15 22:41: 00 10-15 23:20 :00 No 500ug 500 mcg, Slow IV Push, ONCE, 1 dose, On Tue10/15/24 at 1745, Routine [facility] vancomycin (VANCOCIN) 1,250 mg in NaCl 0.9% (NS) 250 mL V2B IV Piggyback 10-15 22:37: 00 10-16 01:36 :00 No 1250mg 1,250 mg, IV Piggyback, ONCE NOW, 1 dose, On Tue10/15/24 at 1745, Administer over 90 Minutes, 250 mL, Reason for Anti-Infec tive: Documented Infection, Documented Infection Site: Skin / Soft Tissue, Duration of therapy: Once (ED) [facility] ceFEPIme (MAXIPIME) 1,000 mg in NaCl 0.9% (NS) 100 mL MINI-BAG 10-15 22:37: 00 10-15 23:56 :00 No 1000mg 1,000 mg, IV Piggyback, ONCE, 1 dose, On Tue10/15/24 at 1745, Administer over 30 Minutes, 100 mL, Reason for Anti-Infec tive: Documented Infection, Documented Infection Site: Skin / Soft Tissue, Duration of therapy: Once (ED) [facility] NaCl 0.9% (NS) bolus infusion 1,000 mL 10-15 22:30: 00 10-16 00:32 :00 No 1000mL at 999 mL/hr, 1,000 mL, IV Infusion, ONCE, 1 dose, On Tue10/15/24 at 1730, STAT [facility] midodrine (PROAMATINE ) tablet 2.5 mg 10-09 01:00: 00 Yes 2.5mg 2.5 mg, Oral, BID, First dose (after last modificati on) on Tue10/08/24 at 2000, Until Discontinu ed, Routine [facility] methocarbam oL 500 mg tablet 10-08 00:00: 00 11-08 04:59 :00 Yes [id number] 500mg Take 1 tablet by mouth in the morning and 1 tablet at noon and 1 tablet in the evening. Do all this for 30 days. [facility] aspirin 325 mg tablet 10-08 00:00: 00 10-23 00:00 :00 No [id number] 325mg Take 1 tablet by mouth in the morning and 1 tablet in the evening. Do all this for 30 days. [facility] midodrine 2.5 mg tablet 10-08 00:00: 00 10-23 00:00 :00 No [id number] 2.5mg Take 1 tablet by mouth in the morning and 1 tablet in the evening. Do all this for 30 days. [facility] midodrine (PROAMATINE ) tablet 2.5 mg midodrine (PROAMATINE ) tablet 2.5 mg 10-04 13:00: 00 10-08 13:35 :05 Yes 2.5mg 2.5 mg, Oral, TID, First dose (after last modificati on) on Tue10/04/24 at 0800, Until Discontinu ed, Routine [facility] polyethylen e glycol 3350 17 gram powder 10-03 00:00: 00 11-03 04:59 :00 Yes [id number] 17g Take 1 Packet by mouth in the morning for 30 days. [facility] magnesium sulfate in water 2 gram/50 mL (4 %) infusion 2 g magnesium sulfate in water 2 gram/50 mL (4 %) infusion 2 g 10-02 14:00: 00 10-02 15:09 :00 Yes 2g 2 g, IV Piggyback, ONCE, 1 dose, On Tue10/02/24 at 0900, 50 mL [facility] acetaminoph en 325 mg tablet 10-02 00:00: 00 10-03 04:59 :00 Yes [id number] 650mg Take 2 tablets by mouth every 6 hours as needed for Pain (scale 1-3) or Temp > 38 C. [facility] cholecalcif paris, vitamin D3, 25 mcg (1,000 unit) tablet 10-02 00:00: 00 11-02 04:59 :00 Yes [id number] 1000U Take 1 tablet by mouth in the morning for 30 days. [facility] ferrous sulfate (IRON) 325 mg (65 mg iron) tablet 10-02 00:00: 00 11-02 04:59 :00 Yes [id number] 325mg Take 1 tablet by mouth in the morning for 30 days. [facility] midodrine 5 mg tablet 10-02 00:00: 00 10-08 00:00 :00 No [id number] 5mg Take 1 tablet by mouth in the morning and 1 tablet at noon and 1 tablet in the evening. Do all this for 30 days. [facility] enoxaparin 40 mg/0.4 mL injection 10-02 00:00: 00 10-08 00:00 :00 No [id number] 40mg inject 0.4 mL under the skin in the morning for 30 days. [facility] polyethylen e glycol 3350 powder 17 g polyethylen e glycol 3350 powder 17 g 09-30 15:30: 00 Yes 17g 17 g, Oral, DAILY, First dose on 09/30/24 at 1030, Until Discontinu ed, Routine [facility] docusate (COLACE) capsule 100 mg docusate (COLACE) capsule 100 mg 09-30 15:30: 00 10-08 22:53 :43 Yes 100mg 100 mg, Oral, BID, First dose on 09/30/24 at 1030, Until Discontinu ed, Routine [facility] bisacodyL (DULCOLAX) suppository 10 mg 09-30 15:22: 58 10-08 22:53 :43 No 10mg 10 mg, Rectal, QDAILYPRN, Starting on 09/30/24 at 1022, Until 10/08/24 at 1753, Routine, Constipati on unresolved by oral medication s [facility] midodrine (PROAMATINE ) tablet 5 mg midodrine (PROAMATINE ) tablet 5 mg 09-30 13:00: 00 10-04 01:30 :52 Yes 5mg 5 mg, Oral, TID, First dose on 09/30/24 at 0800, Until Discontinu ed, Routine [facility] midodrine (PROAMATINE ) tablet 5 mg midodrine (PROAMATINE ) tablet 5 mg 09-29 23:30: 00 09-29 23:26 :00 Yes 5mg 5 mg, Oral, ONCE, 1 dose, On 09/29/24 at 1830, Routine [facility] ropivacaine 0.5 % (NAROPIN (PF)) injection 09-29 20:55: 00 09-30 00:06 :51 No Epidural, ONCE INTRA PROCEDURE, Starting on 09/29/24 at 1555, Until 09/29/24 at 1906, Routine, Intra-op [facility] calcium chloride 100 mg/mL (10 %) syringe 09-29 20:50: 00 09-29 20:51 :10 No Intravenou s, ONCE INTRA PROCEDURE, Starting on 09/29/24 at 1550, Until 09/29/24 at 1551, Routine, Intra-op [facility] Transfuse Packed RBC (in units)~As soon as possible; Infuse Each Unit Over: < 1 Hour 09-29 20:28: 05 09-29 20:34 :13 No Routine [facility] sugammadex (BRIDION) injection 09-29 20:23: 00 09-29 20:34 :13 No IV Push, ONCE INTRA PROCEDURE, Starting on 09/29/24 at 1523, Until 09/29/24 at 1534, Routine, Intra-op [facility] Transfuse Packed RBC (in units)~As soon as possible; Infuse Each Unit Over: < 1 Hour 09-29 20:14: 37 09-29 20:34 :13 No Routine [facility] Transfuse Packed RBC (in units)~As soon as possible; Infuse Each Unit Over: < 1 Hour 09-29 20:13: 51 09-29 20:34 :13 No Routine [facility]com[facility] (VANCOCIN) injection 09-29 20:00: 00 09-29 20:49 :58 No PRN, Starting on 09/29/24 at 1500, Until 09/29/24 at 1549, Routine, Intra-op [facility] tobramycin (NEBCIN) injection 09-29 20:00: 00 09-29 20:49 :58 No PRN, Starting on 09/29/24 at 1500, Until 09/29/24 at 1549, Routine, Intra-op [facility] NaCl 0.9% (NS) IV infusion 09-29 19:42: 00 09-29 20:34 :13 No IV Infusion, CONTINUOUS PRN, Starting on 09/29/24 at 1442, Until 09/29/24 at 1534, Routine, Intra-op [facility] sodium chloride 0.9 % irrigation solution 09-29 19:30: 00 Yes PRN, Starting on 09/29/24 at 1430, Until Discontinu ed, Intra-op [facility] albumin (ALBUTEIN 5 %) 5 % injection 09-29 18:15: 00 09-29 20:34 :13 No IV Infusion, CONTINUOUS PRN, Starting on 09/29/24 at 1315, Until 09/29/24 at 1534, Intra-op [facility] dexamethaso ne (DECADRON PHOSPHATE) 4 mg/mL injection 09-29 17:42: 00 09-29 20:34 :13 No IV Push, ONCE INTRA PROCEDURE, Starting on 09/29/24 at 1242, Until 09/29/24 at 1534, Routine, Intra-op [facility] PHENYLephri ne 1000 mcg/10 mL in 0.9% NaCl syringe 09-29 17:36: 00 09-29 20:34 :13 No Slow IV Push, ONCE INTRA PROCEDURE, Starting on 09/29/24 at 1236, Until 09/29/24 at 1534, Routine, Intra-op [facility] tranexamic acid (CYKLOKAPRO N) 1,000 mg/10 mL (100 mg/mL) injection 09-29 17:35: 00 09-29 20:34 :13 No Inhalation , Administer over 15 Minutes, ONCE INTRA PROCEDURE, Starting on 09/29/24 at 1235, Until 09/29/24 at 1534, Routine, Intra-op [facility] ceFAZolin (ANCEF) injection 09-29 17:34: 00 09-29 20:34 :13 No Intravenou s, ONCE INTRA PROCEDURE, Starting on 09/29/24 at 1234, Until 09/29/24 at 1534, Routine, Intra-op [facility] hydrogen peroxide 3 % topical solution 09-29 17:33: 00 09-29 20:49 :58 No PRN, Starting on 09/29/24 at 1233, Until 09/29/24 at 1549, Routine, Intra-op Univers [facility] water for irrigation irrigation solution 09-29 17:33: 00 09-29 20:49 :58 No PRN, Starting on 09/29/24 at 1233, Until 09/29/24 at 1549, Routine, Intra-op [facility] EPINEPHrine 1:1,000 (1 mg/mL) (ADRENALIN) injection 09-29 17:22: 00 09-29 20:34 :13 No Buccal, ONCE INTRA PROCEDURE, Starting on 09/29/24 at 1222, Until 09/29/24 at 1534, Routine, Intra-op [facility] rocuronium (ZEMURON) injection 09-29 17:18: 00 09-29 20:34 :13 No IV Push, ONCE INTRA PROCEDURE, Starting on 09/29/24 at 1218, Until 09/29/24 at 1534, Routine, Intra-op [facility] propofoL IV infusion 09-29 17:17: 00 09-29 20:34 :13 No Intravenou s, ONCE INTRA PROCEDURE, Starting on 09/29/24 at 1217, Intra-op [facility] FENTanyl (PF) (SUBLIMAZE) injection 09-29 17:15: 00 09-29 20:34 :13 No Intravenou s, ONCE INTRA PROCEDURE, Starting on 09/29/24 at 1215, Until 09/29/24 at 1534, Routine, Intra-op [facility] lidocaine 1% (PF) (XYLOCAINE) injection 09-29 17:15: 00 09-29 20:34 :13 No Infiltrati on, ONCE INTRA PROCEDURE, Starting on 09/29/24 at 1215, Until 09/29/24 at 1534, Routine, Intra-op [facility] lactated ringers IV infusion 09-29 17:10: 00 09-29 20:34 :13 No IV Infusion, CONTINUOUS PRN, Starting on 09/29/24 at 1210, Until 09/29/24 at 1534, Routine, Intra-op [facility] magnesium sulfate in water 2 gram/50 mL (4 %) infusion 2 g magnesium sulfate in water 2 gram/50 mL (4 %) infusion 2 g 09-29 14:00: 00 09-29 15:23 :00 Yes 2g 2 g, IV Piggyback, Administer over 60 Minutes, ONCE, 1 dose, On 09/29/24 at 0900, Routine [facility] cholecalcif paris (vitamin D3) tablet 2,000 Units cholecalcif paris (vitamin D3) tablet 2,000 Units 09-29 01:00: 00 Yes 2000U 2,000 Units, Oral, BID, First dose on Tue09/28/24 at 1999, Until Discontinu ed, Routine [facility] Potassium Bicarb-Citr ic Acid (EFFER-K) effervescen t tablet 40 mEq Potassium Bicarb-Citr ic Acid (EFFER-K) effervescen t tablet 40 mEq 09-29 01:00: 00 09-29 01:26 :00 Yes 40meq 40 mEq, Oral, ONCE, 1 dose, On Tue09/28/24 at 1999, Routine [facility] aspirin EC tablet 81 mg aspirin EC tablet 81 mg 09-29 00:15: 00 10-08 22:53 :43 Yes 81mg 81 mg, Oral, DAILY, First dose on Tue09/28/24 at 1915, Until Discontinu ed, Routine [facility] cefTRIAXone (ROCEPHIN) 1,000 mg in sterile water for injection 10 mL IV Push cefTRIAXone (ROCEPHIN) 1,000 mg in sterile water for injection 10 mL IV Push 09-28 14:00: 00 09-30 13:54 :00 Yes [id number] 1000mg 1,000 mg, Intravenou s, Q24H ABX, 3 doses, First dose (after last reorder) on Tue09/28/24 at 0900, Last dose on Tue09/30/24 at 0900, 10 mL, Reason for Anti-Infec tive: Documented Infection, Documented Infection Site: Urine, Duration of therapy: Once (ED) [facility] sodium ferric gluconate (FERRLECIT) 125 mg in NaCl 0.9% (NS) 100 mL IV piggyback sodium ferric gluconate (FERRLECIT) 125 mg in NaCl 0.9% (NS) 100 mL IV piggyback 09-28 14:00: 00 09-30 21:33 :00 Yes 125mg 125 mg, IV Piggyback, DAILY, 3 doses, First dose on Tue09/28/24 at 0900, Last dose on Tue09/30/24 at 0900, Administer over 60 Minutes, 100 mL [facility] perflutren protein-A microsphr (OPTISON) injection 3 mL 09-28 13:45: 00 09-28 13:45 :00 No [id number] 3mL 3 mL, IV Push, ONCE, 1 dose, On Tue09/28/24 at 0845, Routine [facility] levothyroxi ne (SYNTHROID) tablet 50 mcg levothyroxi ne (SYNTHROID) tablet 50 mcg 09-28 11:00: 00 10-08 22:53 :43 Yes 50ug 50 mcg, Oral, QAM-0600, First dose on Tue09/28/24 at 0600, Until Discontinu ed, Routine [facility] digoxin (LANOXIN) injection 500 mcg digoxin (LANOXIN) injection 500 mcg 09-28 05:30: 00 09-28 04:58 :00 Yes 500ug 500 mcg, Intravenou s, ONCE, 1 dose, On Tue09/28/24 at 0030, Routine [facility] metoprolol (LOPRESSOR) injection 5 mg 09-28 03:51: 00 09-28 03:53 :00 No 5mg 5 mg, Slow IV Push, ONCE NOW, 1 dose, On Tue09/27/24 at 2300, Routine [facility] cefTRIAXone (ROCEPHIN) 1,000 mg in sterile water for injection 10 mL IV Push 09-28 01:30: 00 09-28 01:20 :00 No [id number] 1000mg 1,000 mg, Intravenou s, ONCE, 1 dose, On Tue09/27/24 at 2030, 10 mL, Reason for Anti-Infec tive: Documented Infection, Documented Infection Site: Urine, Duration of therapy: Once (ED) [facility] methocarbam oL (ROBAXIN) tablet 500 mg methocarbam oL (ROBAXIN) tablet 500 mg 09-28 01:00: 00 Yes [id number] 500mg 500 mg, Oral, TID, First dose on Tue09/27/24 at 2000, Until Discontinu ed, Routine [facility] enoxaparin (LOVENOX) injection 30 mg enoxaparin (LOVENOX) injection 30 mg 09-28 01:00: 00 10-02 13:54 :07 Yes [id number] 30mg 30 mg, Subcutaneo us, Q12H, First dose on Tue09/27/24 at 1999, Until Discontinu ed, Routine [facility] NaCl 0.9% (NS) IV infusion 1,000 mL 09-28 00:45: 00 09-30 15:00 :54 No [id number] 1000mL at 100 mL/hr, IV Infusion, CONTINUOUS , Starting on Sharron 09/27/24 at 1945, Until 09/30/24 at 1000, Routine [facility] ondansetron (ZOFRAN (PF)) injection 4 mg 09-27 23:41: 33 10-08 22:53 :43 No [id number] 4mg [facility] morpHINE (4 mg/mL) injection 4 mg morpHINE (4 mg/mL) injection 4 mg 09-27 23:41: 21 10-08 22:53 :43 Yes [id number] 4mg 4 mg, Slow IV Push, Q4HPRN, Starting on Sharron 09/27/24 at 1841, Until 10/08/24 at 1753, Routine, Pain (scale 7-10) [facility] acetaminoph en (TYLENOL) tablet 650 mg acetaminoph en (TYLENOL) tablet 650 mg 09-27 23:41: 15 Yes [id number] 650mg 650 mg, Oral, Q6HPRN, Starting on Sharron 09/27/24 at 1841, Until Discontinu ed, Routine, Pain (scale 1-3), Temp > 38 C [facility] Gabapentin 100 MG Gabapentin 100 MG 08-30 00:00: 00 No 1{capsu le} Gabapentin 100 MG Ortho[facility]isc OrthoVisc 1-22 00:00: 00 No 2mL [facility] Orthovisc Orthovisc 6-09 00:00: 00 No 30mg [facility] Bupivicaine [place] Bupivicaine [place] 5-31 00:00: 00 No 2.5mg [facility] Kenalog (Triamcinol one) Kenalog (Triamcinol one) 2-17 00:00: 00 No 40mg [facility] KLOR-CON M20 20 mEq tablet 2020-04 0-25 00:00: 00 10-23 00:00 :00 No daily. [facility] gabapentin 300 mg capsule gabapentin 300 mg capsule Yes [facility] trazodone hcl 50 mg tablet trazodone hcl 50 mg tablet Yes [facility] gabapentin 100 mg capsule gabapentin 100 mg capsule Yes [facility] furosemide 40 mg tablet furosemide 40 mg tablet Yes [facility] potassium chloride veena er 20 meq tablet er potassium chloride veena er 20 meq tablet er Yes [facility] levothyroxi ne sodium 25 mcg tablet levothyroxi ne sodium 25 mcg tablet Yes [facility] metoprolol succinate er 25 mg tablet er 24 hr metoprolol succinate er 25 mg tablet er 24 hr Yes [facility] gabapentin 100 mg capsule gabapentin 100 mg capsule Yes [facility] SYNTHROID 50 MCG TABLET SYNTHROID 50 MCG TABLET Yes [facility] furosemide 40 mg tablet furosemide 40 mg tablet Yes [facility] potassium chloride veena er 20 meq tablet er potassium chloride veena er 20 meq tablet er Yes [facility] metoprolol succinate er 25 mg tablet er 24 hr metoprolol succinate er 25 mg tablet er 24 hr Yes [facility] Metoprolol Succinate ER 25 MG Metoprolol Succinate ER 25 MG No 1{table t} QD Metoprolol Succinate ER 25 MG [facility] Silver Centrum Silver No [facility] Silver Furosemide 40 MG Furosemide 40 MG No BID Furosemide 40 MG Lutein 40 MG Lutein 40 MG No 1{capsu le_with _a_meal } QD Lutein 40 MG Levothyroxi ne Sodium 75 MCG Levothyroxi ne Sodium 75 MCG No QD Levothyrox ine Sodium 75 MCG atorvastati n calcium 10 mg tablet atorvastati n calcium 10 mg tablet Yes [facility] hydrocodone -acetaminop hen 5-325 mg tablet hydrocodone -acetaminop hen 5-325 mg tablet Yes [facility] Immunizations Ordered Immunization Name Filled Immunization Name Date Status Comments Source FluAD FluAD 2021-02-02 12:26:00 Completed [facility] FluAD FluAD 2021-02-02 12:26:00 Completed [facility] FluAD FluAD 2021-02-02 12:26:00 Completed [facility] FluAD FluAD 2021-02-02 12:26:00 Completed [facility] FluAD FluAD 2021-02-02 12:26:00 Completed [facility] FluAD FluAD 2021-02-02 12:26:00 Completed [facility] FluAD FluAD 2021-02-02 12:26:00 Completed [facility] Moderna COVID-19 Vaccine Moderna COVID-19 Vaccine 2020-08-13 11:28:00 Completed [facility] Moderna COVID-19 Vaccine Moderna COVID-19 Vaccine 2020-08-13 11:28:00 Completed [facility] Moderna COVID-19 Vaccine Moderna COVID-19 Vaccine 2020-08-13 11:28:00 Completed [facility] Moderna COVID-19 Vaccine Moderna COVID-19 Vaccine 2020-08-13 11:28:00 Completed [facility] Moderna COVID-19 Vaccine Moderna COVID-19 Vaccine 2020-08-13 11:28:00 Completed [facility] Moderna COVID-19 Vaccine Moderna COVID-19 Vaccine 2020-08-13 11:28:00 Completed [facility] Moderna COVID-19 Vaccine Moderna COVID-19 Vaccine 2020-08-13 11:28:00 Completed [facility] SARS-COV-2 COVID-19 MODERNA VACCINE 2020-08-13 00:00:00 Completed [facility] SARS-COV-2 COVID-19 MODERNA VACCINE 2020-08-13 00:00:00 Completed [facility] SARS-COV-2 COVID-19 MODERNA VACCINE 2020-08-13 00:00:00 Completed [facility] SARS-COV-2 COVID-19 MODERNA 12+ YRS VACCINE 2020-08-13 00:00:00 Completed [facility] Moderna COVID-19 Vaccine Moderna COVID-19 Vaccine 2020-07-16 11:28:00 Completed [facility] Moderna COVID-19 Vaccine Moderna COVID-19 Vaccine 2020-07-16 11:28:00 Completed [facility] Moderna COVID-19 Vaccine Moderna COVID-19 Vaccine 2020-07-16 11:28:00 Completed [facility] Moderna COVID-19 Vaccine Moderna COVID-19 Vaccine 2020-07-16 11:28:00 Completed [facility] Moderna COVID-19 Vaccine Moderna COVID-19 Vaccine 2020-07-16 11:28:00 Completed [facility] Moderna COVID-19 Vaccine Moderna COVID-19 Vaccine 2020-07-16 11:28:00 Completed [facility] Moderna COVID-19 Vaccine Moderna COVID-19 Vaccine 2020-07-16 11:28:00 Completed [facility] SARS-COV-2 COVID-19 MODERNA VACCINE 2020-07-16 00:00:00 Completed [facility] SARS-COV-2 COVID-19 MODERNA VACCINE 2020-07-16 00:00:00 Completed [facility] SARS-COV-2 COVID-19 MODERNA VACCINE 2020-07-16 00:00:00 Completed [facility] SARS-COV-2 COVID-19 MODERNA 12+ YRS VACCINE 2020-07-16 00:00:00 Completed [facility] Moderna COVID-19 Vaccine Moderna COVID-19 Vaccine Unknown Completed [facility] Fluad (IIV) - SDS - 0.5mL Fluad (IIV) - SDS - 0.5mL Unknown Completed [facility] Moderna COVID-19 Vaccine Moderna COVID-19 Vaccine Unknown Completed [facility] FluAD FluAD Unknown Completed [facility] Moderna COVID-19 Vaccine Moderna COVID-19 Vaccine Unknown Completed [facility] FluAD FluAD Unknown Completed [facility] Moderna COVID-19 Vaccine Moderna COVID-19 Vaccine Unknown Completed [facility] FluAD FluAD Unknown Completed [facility] Moderna COVID-19 Vaccine Moderna COVID-19 Vaccine Unknown Completed [facility] FluAD FluAD Unknown Completed [facility] Moderna COVID-19 Vaccine Moderna COVID-19 Vaccine Unknown Completed [facility] FluAD FluAD Unknown Completed [facility] Moderna COVID-19 Vaccine Moderna COVID-19 Vaccine Unknown Completed [facility] FluAD FluAD Unknown Completed [facility] Moderna COVID-19 Vaccine Moderna COVID-19 Vaccine Unknown Completed [facility] FluAD FluAD Unknown Completed [facility] Moderna COVID-19 Vaccine Moderna COVID-19 Vaccine Unknown Completed [facility] FluAD FluAD Unknown Completed [facility] Moderna COVID-19 Vaccine Moderna COVID-19 Vaccine Unknown Completed [facility] FluAD FluAD Unknown Completed [facility] Moderna COVID-19 Vaccine Moderna COVID-19 Vaccine Unknown Completed [facility] FluAD FluAD Unknown Completed [facility] Moderna COVID-19 Vaccine Moderna COVID-19 Vaccine Unknown Completed [facility] FluAD FluAD Unknown Completed [facility] Moderna COVID-19 Vaccine Moderna COVID-19 Vaccine Unknown Completed [facility] FluAD FluAD Unknown Completed [facility] Moderna COVID-19 Vaccine Moderna COVID-19 Vaccine Unknown Completed [facility] FluAD FluAD Unknown Completed [facility] Moderna COVID-19 Vaccine Moderna COVID-19 Vaccine Unknown Completed [facility] FluAD FluAD Unknown Completed [facility] Moderna COVID-19 Vaccine Moderna COVID-19 Vaccine Unknown Completed [facility] FluAD FluAD Unknown Completed [facility] Moderna COVID-19 Vaccine Moderna COVID-19 Vaccine Unknown Completed [facility] FluAD FluAD Unknown Completed [facility] Moderna COVID-19 Vaccine Moderna COVID-19 Vaccine Unknown Completed [facility] FluAD FluAD Unknown Completed [facility] Moderna COVID-19 Vaccine Moderna COVID-19 Vaccine Unknown Com[facility] FluAD FluAD Unknown [facility] Moderna COVID-19 Vaccine Moderna COVID-19 Vaccine Unknown Completed [facility] FluAD FluAD Unknown Com[facility] Vital Signs Vital Name Observation Time Observation Value Comments S gustavo Systolic blood pressure 2024-10-23 17:15:00 110 mm[Hg] [facility] Diastolic blood pressure 2024-10-23 17:15:00 66 mm[Hg] [facility] Heart rate 2024-10-23 17:15:00 83 /min [facility] Body temperature 2024-10-23 17:15:00 36.61 [place] [facility] Respiratory rate 2024-10-23 17:15:00 27 /min [facility] Oxygen saturation in Arterial blood by Pulse oximetry 2024-10-23 17:15:00 93 /min [facility] Body height 2024-10-23 10:00:00 152.4 cm [facility] Body weight 2024-10-23 10:00:00 86.8 kg [facility] BMI 2024-10-23 10:00:00 37.37 kg/m2 [facility] Systolic blood pressure 2024-10-19 11:27:00 125 mm[Hg] [facility] Diastolic blood pressure 2024-10-19 11:27:00 62 mm[Hg] [facility] Heart rate 2024-10-19 11:27:00 73 /min [facility] Body temperature 2024-10-19 11:27:00 37.17 [place] [facility] Respiratory rate 2024-10-19 11:27:00 21 /min [facility] Oxygen saturation in Arterial blood by Pulse oximetry 2024-10-19 11:27:00 96 /min [facility] Body weight 2024-10-19 09:00:00 91.354 kg [facility] BMI 2024-10-19 09:00:00 39.33 kg/m2 [facility] Body height 2024-10-15 22:27:00 152.4 cm [facility] Systolic blood pressure 2024-10-08 20:32:00 107 mm[Hg] [facility] Diastolic blood pressure 2024-10-08 20:32:00 54 mm[Hg] [facility] Heart rate 2024-10-08 20:32:00 59 /min [facility] Body temperature 2024-10-08 20:32:00 36.44 [place] [facility] Respiratory rate 2024-10-08 20:32:00 24 /min [facility] Oxygen saturation in Arterial blood by Pulse oximetry 2024-10-08 20:32:00 95 /min [facility] Body weight 2024-10-08 09:12:00 82.963 kg [facility] BMI 2024-10-08 09:12:00 35.72 kg/m2 [facility] Body height 2024-10-05 03:00:00 152.4 cm [facility] Respiratory rate 2024-09-29 20:29:00 26 /min [facility] Heart rate 2024-09-29 17:07:00 60 /min [facility] Respiratory rate 2024-09-29 17:07:00 21 /min [facility] Oxygen saturation in Arterial blood by Pulse oximetry 2024-09-29 17:07:00 98 /min [facility] Systolic blood pressure 2024-09-29 17:04:00 103 mm[Hg] [facility] Diastolic blood pressure 2024-09-29 17:04:00 80 mm[Hg] [facility] Body temperature 2024-09-29 15:38:00 36.33 [place] [facility] Body weight 2024-09-29 09:00:00 74.5 kg [facility] BMI 2024-09-29 09:00:00 32.94 kg/m2 [facility] Body height 2024-09-28 02:00:00 152.4 cm [facility] height 2024-07-09 13:15:00 60.00 [in_i] Com [facility] weight 2024-07-09 13:15:00 177.0 [lb_av] Co on [facility] temperature 2024-07-09 13:15:00 98.8 [degF] Com [facility] bmi 2024-07-09 13:15:00 34.56 kg/m2 Comm on [facility] oximetry 2024-07-09 13:15:00 95 % Commo n [facility] blood pressure systolic 2024-07-09 13:15:00 115 mm[Hg] Common [facility] blood pressure diastolic 2024-07-09 13:15:00 55 mm[Hg] [facility] height 2024-01-23 14:00:00 60.00 [in_i] Com [facility] weight 2024-01-23 14:00:00 168.4 [lb_av] Co [facility] temperature 2024-01-23 14:00:00 97.8 [degF] Com [facility] bmi 2024-01-23 14:00:00 32.88 kg/m2 Comm on [facility] blood pressure systolic 2024-01-23 14:00:00 116 mm[Hg] Common [facility] blood pressure diastolic 2024-01-23 14:00:00 74 mm[Hg] Common [facility] height 2024-01-18 11:20:00 60.00 [in_i] Com [facility] weight 2024-01-18 11:20:00 169 [lb_av] Comm on [facility] temperature 2024-01-18 11:20:00 97.9 [degF] Com [facility] bmi 2024-01-18 11:20:00 33 kg/m2 Commo n [facility] oximetry 2024-01-18 11:20:00 97 % Commo n [facility] blood pressure systolic 2024-01-18 11:20:00 132 mm[Hg] [facility] blood pressure diastolic 2024-01-18 11:20:00 70 mm[Hg] [facility] height 2024-01-10 13:00:00 60.00 [in_i] Com [facility] weight 2024-01-10 13:00:00 169 [lb_av] Comm on [facility] temperature 2024-01-10 13:00:00 98.4 [degF] Com [facility] bmi 2024-01-10 13:00:00 33 kg/m2 Commo n [facility] blood pressure systolic 2024-01-10 13:00:00 112 mm[Hg] [facility] blood pressure diastolic 2024-01-10 13:00:00 68 mm[Hg] [facility] height 2024-01-03 13:30:00 60.00 [in_i] Com [facility] weight 2024-01-03 13:30:00 169.2 [lb_av] Co mmon [facility] temperature 2024-01-03 13:30:00 98.1 [degF] Com [facility] bmi 2024-01-03 13:30:00 33.04 kg/m2 Comm on [facility] blood pressure systolic 2024-01-03 13:30:00 105 mm[Hg] [facility] blood pressure diastolic 2024-01-03 13:30:00 55 mm[Hg] [facility] height 2023-11-21 14:00:00 60.00 [in_i] Com [facility] weight 2023-11-21 14:00:00 169 [lb_av] Comm on [facility] temperature 2023-11-21 14:00:00 98.0 [degF] Com [facility] bmi 2023-11-21 14:00:00 33 kg/m2 Commo n [facility] blood pressure systolic 2023-11-21 14:00:00 120 mm[Hg] [facility] blood pressure diastolic 2023-11-21 14:00:00 62 mm[Hg] [facility] height 2023-10-19 10:40:00 60.00 [in_i] Com [facility] weight 2023-10-19 10:40:00 169.0 [lb_av] Co [facility] temperature 2023-10-19 10:40:00 97.8 [degF] Com [facility] bmi 2023-10-19 10:40:00 33 kg/m2 Commo n [facility] oximetry 2023-10-19 10:40:00 96 % Commo n [facility] respiratory rate 2023-10-19 10:40:00 17 /min Common [facility] blood pressure systolic 2023-10-19 10:40:00 119 mm[Hg] [facility] blood pressure diastolic 2023-10-19 10:40:00 61 mm[Hg] Common [facility] height 2023-08-31 14:20:00 60.00 [in_i] Com [facility] weight 2023-08-31 14:20:00 166.6 [lb_av] Co [facility] temperature 2023-08-31 14:20:00 97.2 [degF] Com [facility] [facility] bmi 2023-08-31 14:20:00 32.53 kg/m2 Comm on [facility] oximetry 2023-08-31 14:20:00 97 % Commo n [facility] respiratory rate 2023-08-31 14:20:00 16 /min Common [facility] blood pressure systolic 2023-08-31 14:20:00 122 mm[Hg] [facility] blood pressure diastolic 2023-08-31 14:20:00 58 mm[Hg] Common [facility] height 2023-08-31 14:20:00 60.00 [in_i] Com [facility] weight 2023-08-31 14:20:00 166.6 [lb_av] Co mmon [facility] temperature 2023-08-31 14:20:00 97.2 [degF] Com [facility] bmi 2023-08-31 14:20:00 32.53 kg/m2 Comm on [facility] oximetry 2023-08-31 14:20:00 97 % Commo n [facility] respiratory rate 2023-08-31 14:20:00 16 /min [facility] blood pressure systolic 2023-08-31 14:20:00 122 mm[Hg] Common [facility] blood pressure diastolic 2023-08-31 14:20:00 58 mm[Hg] [facility] height 2023-05-09 11:00:00 60.00 [in_i] Com [facility] weight 2023-05-09 11:00:00 172 [lb_av] Comm on [facility] temperature 2023-05-09 11:00:00 97.8 [degF] Com [facility] bmi 2023-05-09 11:00:00 33.59 kg/m2 Comm on [facility] blood pressure systolic 2023-05-09 11:00:00 126 mm[Hg] [facility] blood pressure diastolic 2023-05-09 11:00:00 74 mm[Hg] [facility] height 2023-05-02 14:00:00 60.00 [in_i] Com [facility] weight 2023-05-02 14:00:00 172 [lb_av] Comm on [facility] temperature 2023-05-02 14:00:00 98.4 [degF] Com [facility] bmi 2023-05-02 14:00:00 33.59 kg/m2 Comm on [facility] blood pressure systolic 2023-05-02 14:00:00 126 mm[Hg] Common [facility] blood pressure diastolic 2023-05-02 14:00:00 68 mm[Hg] [facility] height 2023-03-25 10:20:00 60.00 [in_i] Com [facility] weight 2023-03-25 10:20:00 172.2 [lb_av] Co [facility] temperature 2023-03-25 10:20:00 97.2 [degF] Com [facility] bmi 2023-03-25 10:20:00 33.63 kg/m2 Comm on [facility] oximetry 2023-03-25 10:20:00 99 % Commo n [facility] respiratory rate 2023-03-25 10:20:00 16 /min [facility] blood pressure systolic 2023-03-25 10:20:00 122 mm[Hg] [facility] blood pressure diastolic 2023-03-25 10:20:00 64 mm[Hg] [facility] height 2023-03-18 11:00:00 60.00 [in_i] Com [facility] weight 2023-03-18 11:00:00 168.4 [lb_av] Co [facility] temperature 2023-03-18 11:00:00 97.2 [degF] Com [facility] bmi 2023-03-18 11:00:00 32.88 kg/m2 Comm on [facility] oximetry 2023-03-18 11:00:00 97 % Commo n [facility] respiratory rate 2023-03-18 11:00:00 16 /min Common [facility] blood pressure systolic 2023-03-18 11:00:00 126 mm[Hg] [facility] blood pressure diastolic 2023-03-18 11:00:00 68 mm[Hg] Common [facility] height 2023-03-17 14:00:00 60.00 [in_i] Com [facility] weight 2023-03-17 14:00:00 168.4 [lb_av] Co [facility] temperature 2023-03-17 14:00:00 97.8 [degF] Com [facility] bmi 2023-03-17 14:00:00 32.88 kg/m2 Comm on [facility] blood pressure systolic 2023-03-17 14:00:00 124 mm[Hg] Common [facility] blood pressure diastolic 2023-03-17 14:00:00 83 mm[Hg] [facility] height 2023-02-23 14:20:00 60.00 [in_i] Com [facility] weight 2023-02-23 14:20:00 170.8 [lb_av] Co [facility] temperature 2023-02-23 14:20:00 97.2 [degF] Com [facility] bmi 2023-02-23 14:20:00 33.35 kg/m2 Comm on [facility] oximetry 2023-02-23 14:20:00 98 % Commo n [facility] respiratory rate 2023-02-23 14:20:00 16 /min Common [facility] blood pressure systolic 2023-02-23 14:20:00 124 mm[Hg] [facility] blood pressure diastolic 2023-02-23 14:20:00 68 mm[Hg] Common [facility] height 2022-11-23 15:40:00 60.00 [in_i] Com [facility] weight 2022-11-23 15:40:00 174 [lb_av] Comm on [facility] temperature 2022-11-23 15:40:00 97.9 [degF] Com [facility] bmi 2022-11-23 15:40:00 33.98 kg/m2 Comm on [facility] oximetry 2022-11-23 15:40:00 97 % Commo n [facility] respiratory rate 2022-11-23 15:40:00 17 /min Common [facility] blood pressure systolic 2022-11-23 15:40:00 120 mm[Hg] Common [facility] blood pressure diastolic 2022-11-23 15:40:00 62 mm[Hg] Common [facility] height 2022-09-27 15:20:00 60.00 [in_i] Com [facility] weight 2022-09-27 15:20:00 198.4 [facility] 15:20:00 97.3 [degF] Com [facility] bmi 2022-09-27 15:20:00 38.74 kg/m2 Comm on [facility] oximetry 2022-09-27 15:20:00 97 % Commo n [facility] respiratory rate 2022-09-27 15:20:00 16 /min Common [facility] blood pressure systolic 2022-09-27 15:20:00 118 mm[Hg] [facility] blood pressure diastolic 2022-09-27 15:20:00 66 mm[Hg] Common [facility] height 2022-07-28 14:40:00 60.00 [in_i] Com [facility] weight 2022-07-28 14:40:00 199.6 [lb_av] Co mmon [facility] temperature 2022-07-28 14:40:00 97.9 [degF] Com [facility] bmi 2022-07-28 14:40:00 38.98 kg/m2 Comm on [facility] oximetry 2022-07-28 14:40:00 100 % Commo n [facility] respiratory rate 2022-07-28 14:40:00 17 /min Common [facility] blood pressure systolic 2022-07-28 14:40:00 126 mm[Hg] Common [facility] blood pressure diastolic 2022-07-28 14:40:00 70 mm[Hg] [facility] height 2022-07-28 15:40:00 60.00 [in_i] Com [facility] weight 2022-07-28 15:40:00 199.6 [lb_av] Co mmon [facility] temperature 2022-07-28 15:40:00 97.9 [degF] Com [facility] bmi 2022-07-28 15:40:00 38.98 kg/m2 Comm on [facility] oximetry 2022-07-28 15:40:00 100 % Commo n [facility] respiratory rate 2022-07-28 15:40:00 17 /min Common [facility] blood pressure systolic 2022-07-28 15:40:00 126 mm[Hg] Common [facility] blood pressure diastolic 2022-07-28 15:40:00 70 mm[Hg] [facility] height 2022-03-11 11:00:00 60.00 [in_i] Com [facility] weight 2022-03-11 11:00:00 194.4 [lb_av] Co mmon [facility] temperature 2022-03-11 11:00:00 97.3 [degF] Com [facility] bmi 2022-03-11 11:00:00 37.96 kg/m2 Comm on [facility] oximetry 2022-03-11 11:00:00 98 % Commo n [facility] respiratory rate 2022-03-11 11:00:00 16 /min Common [facility] blood pressure systolic 2022-03-11 11:00:00 136 mm[Hg] Common [facility] blood pressure diastolic 2022-03-11 11:00:00 65 mm[Hg] [facility] height 2021-12-01 13:40:00 60.00 [in_i] Com [facility] weight 2021-12-01 13:40:00 185.6 [lb_av] Co mmon [facility] temperature 2021-12-01 13:40:00 99.2 [degF] Com [facility] bmi 2021-12-01 13:40:00 36.24 kg/m2 Comm on [facility] height 2021-09-24 15:15:00 60.00 [in_i] Com [facility] weight 2021-09-24 15:15:00 204 [lb_av] Comm on [facility] temperature 2021-09-24 15:15:00 98.4 [degF] Com [facility] bmi 2021-09-24 15:15:00 39.84 kg/m2 Comm on [facility] blood pressure systolic 2021-09-24 15:15:00 124 mm[Hg] Common [facility] blood pressure diastolic 2021-09-24 15:15:00 80 mm[Hg] Common [facility] height 2021-09-17 10:45:00 60.00 [in_i] Com [facility] weight 2021-09-17 10:45:00 204 [lb_av] Comm on [facility] temperature 2021-09-17 10:45:00 98.5 [degF] Com mon [facility] bmi 2021-09-17 10:45:00 39.84 kg/m2 Comm on [facility] blood pressure systolic 2021-09-17 10:45:00 113 mm[Hg] Common [facility] blood pressure diastolic 2021-09-17 10:45:00 57 mm[Hg] Common [facility] height 2021-09-08 15:30:00 60.00 [in_i] Com [facility] weight 2021-09-08 15:30:00 204 [lb_av] Comm on [facility] bmi 2021-09-08 15:30:00 39.84 kg/m2 Comm on [facility] blood pressure systolic 2021-09-08 15:30:00 126 mm[Hg] Common [facility] blood pressure diastolic 2021-09-08 15:30:00 82 mm[Hg] Common [facility] height 2021-08-04 11:20:00 60.00 [in_i] Com [facility] weight 2021-08-04 11:20:00 204.6 [lb_av] Co mmon [facility] temperature 2021-08-04 11:20:00 97.3 [degF] Com mon [facility] bmi 2021-08-04 11:20:00 39.95 kg/m2 Comm on [facility] oximetry 2021-08-04 11:20:00 99 % Commo n [facility] respiratory rate 2021-08-04 11:20:00 17 /min [facility] blood pressure systolic 2021-08-04 11:20:00 140 mm[Hg] Common [facility] blood pressure diastolic 2021-08-04 11:20:00 68 mm[Hg] Common [facility] height 2021-07-09 11:30:00 60.00 [in_i] Com mon [facility] weight 2021-07-09 11:30:00 209 [lb_av] Comm on [facility] temperature 2021-07-09 11:30:00 97.4 [degF] Com [facility] bmi 2021-07-09 11:30:00 40.81 kg/m2 Comm on [facility] blood pressure systolic 2021-07-09 11:30:00 128 mm[Hg] Common [facility] blood pressure diastolic 2021-07-09 11:30:00 82 mm[Hg] [facility] height 2021-05-28 14:00:00 60.00 [in_i] Com [facility] weight 2021-05-28 14:00:00 209 [lb_av] Comm on [facility] bmi 2021-05-28 14:00:00 40.81 kg/m2 Comm on [facility] blood pressure systolic 2021-05-28 14:00:00 146 mm[Hg] [facility] blood pressure diastolic 2021-05-28 14:00:00 86 mm[Hg] Common [facility] height 2021-05-05 11:20:00 60.00 [in_i] Com mon [facility] weight 2021-05-05 11:20:00 207.6 [lb_av] Co mmon [facility] temperature 2021-05-05 11:20:00 96.4 [degF] Com [facility] bmi 2021-05-05 11:20:00 40.54 kg/m2 Comm on [facility] oximetry 2021-05-05 11:20:00 97 % Commo n [facility] respiratory rate 2021-05-05 11:20:00 16 /min Common [facility] blood pressure systolic 2021-05-05 11:20:00 134 mm[Hg] [facility] blood pressure diastolic 2021-05-05 11:20:00 64 mm[Hg] [facility] Systolic blood pressure 2021-02-23 17:07:00 121 mm[Hg] [facility] Diastolic blood pressure 2021-02-23 17:07:00 73 mm[Hg] [facility] Heart rate 2021-02-23 17:07:00 61 /min [facility] Respiratory rate 2021-02-23 17:07:00 19 /min [facility] Body height 2021-02-23 17:07:00 149.9 cm [facility] Body weight 2021-02-23 17:07:00 91.627 kg [facility] BMI 2021-02-23 17:07:00 40.80 kg/m2 [facility] Oxygen saturation in Arterial blood by Pulse oximetry 2021-02-23 17:07:00 95 /min [facility] height 2021-02-02 11:10:00 60.00 [in_i] Com [facility] weight 2021-02-02 11:10:00 200 [lb_av] Comm on [facility] temperature 2021-02-02 11:10:00 97.6 [degF] Com [facility] bmi 2021-02-02 11:10:00 39.06 kg/m2 Comm on [facility] oximetry 2021-02-02 11:10:00 100 % Commo n [facility] respiratory rate 2021-02-02 11:10:00 21 /min [facility] blood pressure systolic 2021-02-02 11:10:00 136 mm[Hg] [facility] blood pressure diastolic 2021-02-02 11:10:00 65 mm[Hg] [facility] Procedures Procedure Date / Time Performed Performing Clinician Source [facility] 2024-10-23 09:47:00 [place], Gómez [facility] BASIC METABOLIC PANEL (NA, K, CL, CO2, GLUCOSE, BUN, CREATININE, CA) 2024-10-23 09:47:00 [facility] 2024-10-23 09:47:00 Gómez Etienne [facility] N-TERMINAL PRO-BNP 2024-10-23 09:47:00 [facility]FF 2024-10-22 22:01:00 Gómez Etienne [facility] XR CHEST 1 VW 2024-10-22 20:11:18 Gómez Etienne [facility] MAGNESIUM 2024-10-22 09:16:00 Gómez Etienne [facility] BASIC METABOLIC PANEL (NA, K, CL, CO2, GLUCOSE, BUN, CREATININE, CA) 2024-10-22 09:16:00 [facility] 2024-10-22 09:16:00 Gómez Etienne [facility] N-TERMINAL PRO-BNP 2024-10-22 09:16:00 [facility] 2024-10-22 09:16:00 Gómez Etienne [facility] BASIC METABOLIC PANEL (NA, K, CL, CO2, GLUCOSE, BUN, CREATININE, CA) 2024-10-22 09:16:00 [facility]FF 2024-10-22 09:16:00 Gómez Etienne [facility] N-TERMINAL PRO-BNP 2024-10-22 09:16:00 [facility] 2024-10-21 09:58:00 Olya Hammer [facility] BASIC METABOLIC PANEL (NA, K, CL, CO2, GLUCOSE, BUN, CREATININE, CA) 2024-10-21 09:58:00 Olya Hammer [facility] CBC WITH DIFF 2024-10-21 09:58:00 Olya Hammer [facility] N-TERMINAL PRO-BNP 2024-10-21 09:58:00 Jerry Moses [facility] MAGNESIUM 2024-10-21 09:58:00 Olya Hammer [facility] BASIC METABOLIC PANEL (NA, K, CL, CO2, GLUCOSE, BUN, CREATININE, CA) 2024-10-21 09:58:00 Olya Hammer [facility] CBC WITH DIFF 2024-10-21 09:58:00 Olya Hammer [facility] N-TERMINAL PRO-BNP 2024-10-21 09:58:00 Jerry Moses [facility] ASPIRATE OR ABSCESS CULTURE(AEROBIC/ANAEROBIC ) 2024-10-19 13:07:00 Jono [facility] ASPIRATE OR ABSCESS CULTURE(AEROBIC/ANAEROBIC ) 2024-10-19 13:07:00 Jono [facility] ASPIRATE OR ABSCESS CULTURE(AEROBIC/ANAEROBIC ) 2024-10-19 13:06:00 Jono [facility] ASPIRATE OR ABSCESS CULTURE(AEROBIC/ANAEROBIC ) 2024-10-19 13:06:00 Jono [facility] ASPIRATE OR ABSCESS CULTURE(AEROBIC/ANAEROBIC ) 2024-10-19 13:05:00 Jono [facility] ASPIRATE OR ABSCESS CULTURE(AEROBIC/ANAEROBIC ) 2024-10-19 13:05:00 Jono [facility] ASPIRATE OR ABSCESS CULTURE(AEROBIC/ANAEROBIC ) 2024-10-19 13:04:00 Jono [facility] FUNGUS (ROUTINE) CULTURE 2024-10-19 13:04[facility]IC/ANAEROBIC ) 2024-10-19 13:04:00 Jono [facility] FUNGUS (ROUTINE) CULTURE 2024-10-19 13:04:00 Min Hammer [facility] SURGICAL PATHOLOGY EXAM 2024-10-19 12:58:00 [facility] 2024-10-19 11:58:00 Jon[facility] INCISION AND DRAINAGE OF ABSCESS 2024-10-19 11:58:00 Chaka José [facility] BASIC METABOLIC PANEL (NA, K, CL, CO2, GLUCOSE, BUN, CREATININE, CA) 2024-10-19 08:44:00 Olya Hammer [facility] VANCOMYCIN RANDOM LEVEL 2024-10-19 08:44:00 Nicole Crane [facility] CBC WITH DIFF 2024-10-19 08:44:00 Olya Hammer [facility] HB ABO GROUPING 2024-10-19 08:44:00 Olya Hammer [facility] BASIC METABOLIC PANEL (NA, K, CL, CO2, GLUCOSE, BUN, CREATININE, CA) 2024-10-19 08:44:00 Olya Hammer [facility] VANCOMYCIN RANDOM LEVEL 2024-10-19 08:44:00 Nicole Crane [facility] CBC WITH DIFF 2024-10-19 08:44:00 Olya Hammer [facility] HB ABO GROUPING 2024-10-19 08:44:00 Olya Hammer [facility] PHOSPHORUS 2024-10-18 10:09:00 Olya Hammer [facility] MAGNESIUM 2024-10-18 10:09:00 Olya Hammer [facility] BASIC METABOLIC PANEL (NA, K, CL, CO2, GLUCOSE, BUN, CREATININE, CA) 2024-10-18 10:09:00 Olya Hammer [facility] CBC WITH DIFF 2024-10-18 10:09:00 Olya Hammer [facility] PHOSPHORUS 2024-10-18 10:09:00 Olya Hammer [facility] MAGNESIUM 2024-10-18 10:09:00 Olya Hammer [facility] BASIC METABOLIC PANEL (NA, K, CL, CO2, GLUCOSE, BUN, CREATININE, CA) 2024-10-18 10:09:00 Olya Hammer [facility] CBC WITH DIFF 2024-10-18 10:09:00 Olya Hammer [facility] CT FEMUR RIGHT W CONTRAST 2024-10-17 22:33:48 Olya Hammer [facility] CT FEMUR RIGHT W CONTRAST 2024-10-17 22:33:48 Olya Hammer [facility] BASIC METABOLIC PANEL (NA, K, CL, CO2, GLUCOSE, BUN, CREATININE, CA) 2024-10-17 08:29:00 Ana María [facility] CBC WITH DIFF 2024-10-17 08:29:00 Ana María [facility] BASIC METABOLIC PANEL (NA, K, CL, CO2, GLUCOSE, BUN, CREATININE, CA) 2024-10-17 08:29:00 Ana María [facility] CBC WITH DIFF 2024-10-17 08:29:00 Ana María [facility] CBC WITHOUT DIFF 2024-10-17 01:52:00 Olya Hammer [facility] CBC WITHOUT DIFF 2024-10-17 01:52:00 Olya Hammer [facility] PREPARE PACKED RBC 2024-10-16 21:04:15 Olya Hammer [facility] PREPARE PACKED RBC 2024-10-16 21:04:15 Olya Hammer [facility] VANCOMYCIN RANDOM LEVEL 2024-10-16 19:14:00 Nicole Crane [facility] VANCOMYCIN RANDOM LEVEL 2024-10-16 19:14:00 Nicole Crane [facility] TROPONIN I 2024-10-16 15:39:00 Ana María [facility] VANCOMYCIN RANDOM LEVEL 2024-10-16 15:39:00 Mayo Allen [facility] TROPONIN I 2024-10-16 15:39:00 Ana María [facility] VANCOMYCIN RANDOM LEVEL 2024-10-16 15:39:00 Mayo Allen [facility] MAGNESIUM 2024-10-16 09:15:00 Ana María [facility] IONIZED CALCIUM 2024-10-16 09:15:00 Ana María [facility] TROPONIN I 2024-10-16 09:15:00 Ana María [facility] BASIC METABOLIC PANEL (NA, K, CL, CO2, GLUCOSE, BUN, CREATININE, CA) 2024-10-16 09:15:00 Edmohamud [facility] CBC WITH DIFF 2024-10-16 09:15:00 Edmohamud [facility] MRSA / MSSA SCREEN BY PCR, RAYMON 2024-10-16 09:15[facility]ILL[facility] BY PCR (INFECTION CONTROL PURPOSES) 2024-10-16 09:15:00 Edionelissa [facility] MAGNESIUM 2024-10-16 09:15:[address] [facility] IONIZED CALCIUM 2024-10-16 09:15[facility]24[facility]10-16 09:15[facility]IC METABOLIC PANEL (NA, K, CL, CO2, GLUCOSE, BUN, CREATININE, CA) 2024-10-16 09:15:00 Edionelissa [facility] CBC WITH DIFF 2024-10-16 09:15:00 Ana María [facility] MRSA / MSSA SCREEN BY PCR, RAYMON 2024-10-16 09:15:00 [facility] ABDOULAYE AURIS SURVEILLANCE BY PCR (INFECTION CONTROL PURPOSES) 2024-10-16 09:15:00 Ana María [facility] GA INSJ NON-TUNNELED CENTRAL VENOUS CATH AGE 3 YR/> 2024-10-16 04:31:40 Jonatan [facility] [place] INSJ NON-TUNNELED CENTRAL VENOUS CATH AGE 3 YR/> 2024-10-16 04:31:40 Tyra Davis [facility] XR CHEST 1 VW 2024-10-16 04:20:13 Tyra Davis [facility] XR CHEST 1 2024-10-16 04:20:13 Tyra Davis [facility] HB ECG ROUTINE & RHYTHM STRIP 2024-10-16 03:14:14 Jonatan Tyra [facility] HB ECG ROUTINE & RHYTHM STRIP 2024-10-16 03:14:14 Tyra Davis [facility] CT CHEST PULMONARY ANGIOGRAM 2024-10-16 03:06:03 Tyra Davis [facility] CT CHEST PULMONARY ANGIOGRAM 2024-10-16 03:06:03 Tyra Davis [facility] URINALYSIS 2024-10-15 23:51:00 Tyra Davis [facility] URINE CULTURE 2024-10-15 23:51:00 Tyra Davis [facility] URINALYSIS 2024-10-15 23:51:00 Tyra Davis [facility] URINE CULTURE 2024-10-15 23:51:00 Tyra Davis [facility] BLOOD CULTURE SCREEN 2024-10-15 23:16:00 Shalini Davis [facility] BLOOD CULTURE SCREEN 2024-10-15 23:16:00 Shalini Davis [facility] XR CHEST 1 VW 2024-10-15 23:08:32 Tyra Davis [facility] XR FEMUR 2 VW RIGHT 2024-10-15 23:08:32 Tyra Davis [facility] XR CHEST 1 VW 2024-10-15 23:08:32 Tyra Davis [facility] XR FEMUR 2 VW RIGHT 2024-10-15 23:08:32 Tyra Davis [facility] BLOOD CULTURE SCREEN 2024-10-15 22:54:00 Shalini Davis [facility] BLOOD CULTURE SCREEN 2024-10-15 22:54:00 Shalini Davis [facility] PROTHROMBIN TIME / INR 2024-10-15 22:51:00 Quinten Davis [facility] ACTIVATED PARTIAL THRMPLAS JADE 2024-10-15 22:51:00 Tyra Davis [facility] HB ABO GROUPING 2024-10-15 22:51:00 Tyra Davis [facility] INFLUENZA A/B RSV COVID NAAT 2024-10-15 22:51:00 Jonatan Tyra [facility] PROTHROMBIN TIME / INR 2024-10-15 22:51:00 Jonatan Quinten martín [facility] ACTIVATED PARTIAL THRMPLAS JADE 2024-10-15 22:51:00 Tyra Davis [facility] HB ABO GROUPING 2024-10-15 22:51:00 Tyra Davis [facility] INFLUENZA A/B RSV COVID NAAT 2024-10-15 22:51:00 Tyra Davis [facility] TROPONIN I 2024-10-15 22:41:00 Tyra Davis [facility] COMP. METABOLIC PANEL (55115) 2024-10-15 22:41:00 Tyra Davis [facility] CBC WITH DIFF 2024-10-15 22:41:00 Tyra Davis [facility] N-TERMINAL PRO-BNP 2024-10-15 22:41:00 Ana María [facility] LACTIC ACID WITH 2 HOUR REFLEX 2024-10-15 22:41:00 Tyra [facility] TROPONIN I 2024-10-15 22:41:00 Tyra Davis [facility] COMP. METABOLIC PANEL (16293) 2024-10-15 22:41:00 Tyra Davis [facility] CBC WITH DIFF 2024-10-15 22:41:00 Tyra Davis [facility] N-TERMINAL PRO-BNP 2024-10-15 22:41:00 Ana María [facility] LACTIC ACID WITH 2 HOUR REFLEX 2024-10-15 22:41:00 Tyra Davis [facility] CRITICAL CARE 2024-10-15 22:09:00 Tyra Davis [facility] CRITICAL CARE 2024-10-15 22:09:00 Tyra Davis [facility] BASIC METABOLIC PANEL (NA, K, CL, CO2, GLUCOSE, BUN, CREATININE, CA) 2024-10-08 09:19:00 Aziza Connor [facility] CBC WITH DIFF 2024-10-08 09:19:00 Nikolas, Aziza [facility] CBC WITH DIFF 2024-10-07 23:00:00 NikolasAziza [facility] BASIC METABOLIC PANEL (NA, K, CL, CO2, GLUCOSE, BUN, CREATININE, CA) 2024-10-07 08:51:00 Olya Hammer [facility] CBC WITH DIFF 2024-10-07 08:51:00 Olya Hammer [facility] MAGNESIUM 2024-10-06 08:49:00 Olya Hammer [facility] BASIC METABOLIC PANEL (NA, K, CL, CO2, GLUCOSE, BUN, CREATININE, CA) 2024-10-06 08:49:00 Olya Hammer [facility] CBC WITH DIFF 2024-10-06 08:49:00 Olya Hammer [facility] PROTHROMBIN TIME / INR 2024-10-05 23:21:00 Terry Hammer [facility] BASIC METABOLIC PANEL (NA, K, CL, CO2, GLUCOSE, BUN, CREATININE, CA) 2024-10-04 08:35:00 Olya Hammer [facility] CBC WITH DIFF 2024-10-04 08:35:00 Olya Hammer [facility] BASIC METABOLIC PANEL (NA, K, CL, CO2, GLUCOSE, BUN, CREATININE, CA) 2024-10-03 09:44:00 Olya Hammer [facility] CBC WITH DIFF 2024-10-03 09:44:00 Olya Hammer [facility] BASIC METABOLIC PANEL (NA, K, CL, CO2, GLUCOSE, BUN, CREATININE, CA) 2024-10-03 09:44:00 Olya Hammer [facility] CBC WITH DIFF 2024-10-03 09:44:00 Olya Hammer [facility] TRANSFUSE PACKED RBC 2024-10-02 17:55:00 Olya Hammer [facility] TRANSFUSE PACKED RBC 2024-10-02 17:55:00 Olya Hammer [facility] PREPARE PACKED RBC 2024-10-02 17:34:01 Olya Hammer [facility] PREPARE PACKED RBC 2024-10-02 17:34:01 Olya Hammer [facility] HB ABO GROUPING 2024-10-02 14:29:00 Olya Hammer [facility] HB ABO GROUPING 2024-10-02 14:29:00 Olya Hammer [facility] MAGNESIUM 2024-10-02 10:59:00 Olya Hammer [facility] BASIC METABOLIC PANEL (NA, K, CL, CO2, GLUCOSE, BUN, CREATININE, CA) 2024-10-02 10:59:00 Olya Hammer [facility] CBC WITH DIFF 2024-10-02 10:59:00 Olya Hammer [facility] MAGNESIUM 2024-10-02 10:59:00 Olya Hammer [facility] BASIC METABOLIC PANEL (NA, K, CL, CO2, GLUCOSE, BUN, CREATININE, CA) 2024-10-02 10:59:00 Olya Hammer [facility] CBC WITH DIFF 2024-10-02 10:59:00 Olya Hammer [facility] CBC WITH DIFF 2024-10-01 17:50:00 Jaimie [facility] CBC WITH DIFF 2024-10-01 17:50:00 [facility] 2024-10-01 10:39:00 Jaimie [facility] BASIC METABOLIC PANEL (NA, K, CL, CO2, GLUCOSE, BUN, CREATININE, CA) 2024-10-01 10:39:00 [facility] 2024-10-01 10:39:00 [facility]UM 2024-10-01 10:39:00 [facility]OLIC [facility]EL (NA, K, CL, CO2, GLUCOSE, BUN, CREATININE, CA) 2024-10-01 10:39:00 Jaimie [facility] N-TERMINAL PRO-BNP 2024-10-01 10:39:00 [facility] CBC WITHOUT DIFF 2024-09-30 11:30:00 Gómez Etienne [facility] CBC WITHOUT DIFF 2024-09-30 11:30:00 [facility]z [facility] 2024-09-30 11:25:00 Jaimie [facility] BASIC METABOLIC PANEL (NA, K, CL, CO2, GLUCOSE, BUN, CREATININE, CA) 2024-09-30 11:25:00 [facility]-BNP 2024-09-30 11:25:00 Jerry Moses [facility] MAGNESIUM 2024-09-30 11:25:00 Jaimie [facility] BASIC METABOLIC PANEL (NA, K, CL, CO2, GLUCOSE, BUN, CREATININE, CA) 2024-09-30 11:25:00 Jaimie [facility] N-TERMINAL PRO-BNP 2024-09-30 11:25:00 Jerry Moses [facility] NERVE BLOCK 2024-09-30 00:02:39 Avery [facility] PREPARE PACKED RBC 2024-09-29 22:40:30 Andrea García as [facility] PREPARE PACKED RBC 2024-09-29 22:40:30 Andrea García as [facility] BASIC METABOLIC PANEL (NA, K, CL, CO2, GLUCOSE, BUN, CREATININE, CA) 2024-09-29 21:16:[address] [facility] CBC WITH DIFF 2024-09-29 21:16:[address] [facility] BASIC METABOLIC PANEL (NA, K, CL, CO2, GLUCOSE, BUN, CREATININE, CA) 2024-09-29 21:16:[address] [facility] CBC WITH DIFF 2024-09-29 21:16:00 Avery [facility] ACUTE CARE VENOUS 2024-09-29 21:05:00 [facility] 2024-09-29 21:05:00 Terry Etienne [facility] TRANSFUSE PACKED RBC 2024-09-29 20:29:[address] [facility] TRANSFUSE PACKED RBC 2024-09-29 20:29:[address] [facility] TRANSFUSE PACKED RBC 2024-09-29 20:15:[address] [facility] TRANSFUSE PACKED RBC 2024-09-29 20:15:[address] [facility] FL TIME OR (NON-REPORTABLE) 2024-09-29 20:00:00 Jono [facility] FL TIME OR (NON-REPORTABLE) 2024-09-29 20:00:00 Jono [facility] PREPARE PACKED RBC 2024-09-29 19:49:48 Andrea García as [facility] PREPARE PACKED RBC 2024-09-29 19:49:48 Andrea García as [facility] INTUBATION 2024-09-29 17:20:00 Nikolas García [facility] FEMUR INTRAMEDULLARY NAILING 2024-09-29 16:55:00 Jono [facility] FEMUR INTRAMEDULLARY NAILING 2024-09-29 16:55:00 Jono [facility] HB INDIRECT ANTIGLOBULIN TEST 2024-09-29 07:37:00 Jono [facility] HB INDIRECT ANTIGLOBULIN TEST 2024-09-29 07:37:00 Jono [facility] CREATINE KINASE 2024-09-29 07:36:00 Gómez Etienne [facility] MAGNESIUM 2024-09-29 07:36:00 Gómez Etienne [facility] COMP. METABOLIC PANEL (37483) 2024-09-29 07:36:00 [facility] LIPID PANEL (51490)(TOTAL CHOLESTEROL, TRIGLYCERIDES, HDL) 2024-09-29 07:36:00 [facility] CBC WITHOUT DIFF 2024-09-29 07:36:00 Gómez Etienne [facility] CREATINE KINASE 2024-09-29 07:36:00 Oville, Gómez [facility] MAGNESIUM 2024-09-29 07:36:00 [facility]. METABOLIC PANEL (88655) 2024-09-29 07:36:00 Jaimie [facility] LIPID PANEL (68750)(TOTAL CHOLESTEROL, TRIGLYCERIDES, HDL) 2024-09-29 07:36:00 Jaimie [facility] CBC WITHOUT DIFF 2024-09-29 07:36:00 Gómez Etienne [facility] CREATINE KINASE 2024-09-28 15:15:00 Jaimie Gómez [facility] HEPATIC FUNCTION PANEL (81773) (ALB,T.PRO,BILI T,BU/BC,ALT,AST,ALK PHOS) 2024-09-28 15:15:00 Jaimie [facility] BASIC METABOLIC PANEL (NA, K, CL, CO2, GLUCOSE, BUN, CREATININE, CA) 2024-09-28 15:15:00 Jaimie [facility] CBC WITH DIFF 2024-09-28 15:15:00 Terry Etiennelani [facility] CREATINE KINASE 2024-09-28 15:15:00 Jaimie Gómez [facility] HEPATIC FUNCTION PANEL (70675) (ALB,T.PRO,BILI T,BU/BC,ALT,AST,ALK PHOS) 2024-09-28 15:15:00 Jaimie [facility] BASIC METABOLIC PANEL (NA, K, CL, CO2, GLUCOSE, BUN, CREATININE, CA) 2024-09-28 15:15:00 Jaimie [facility] CBC WITH DIFF 2024-09-28 15:15:00 Jaimie [facility] TROPONIN I 2024-09-28 14:22:00 Jerry Moses [facility] MRSA / MSSA SCREEN BY PCR, RAYMON 2024-09-28 14:22:00 Jaimie [facility] TROPONIN I 2024-09-28 14:22:00 Jerry Moses [facility] MRSA / MSSA SCREEN BY PCRRAYMON 2024-09-28 14:22:00 Gómez Etienne [facility] TRANSTHORACIC ECHO (TTE) COMPLETE W/ CONTRAST 2024-09-28 13:32:00 Gómez Etienne [facility] TRANSTHORACIC ECHO (TTE) COMPLETE W/ CONTRAST 2024-09-28 13:32:00 Gómez Etienne [facility] HB ECG ROUTINE & RHYTHM STRIP 2024-09-28 04:35:47 Sasha Pineda [facility] HB ECG ROUTINE & RHYTHM STRIP 2024-09-28 04:35:47 Sasha Pineda [facility] ABORH CONFIRMATION (LAB ONLY) 2024-09-28 00:53:00 [facility] LACTIC [facility]ID WITH 2 HOUR REFLEX 2024-09-28 00:53:00 Odalys Mahoney [facility] ABORH CONFIRMATION (LAB ONLY) 2024-09-28 00:53:00 Gómez Etienne [facility] LACTIC ACID WITH 2 HOUR REFLEX 2024-09-28 00:53:00 Odalys Mahoney [facility] XR CHEST 1 VW 2024-09-27 23:44:17 Odalys Mahoney [facility] XR CHEST 1 VW 2024-09-27 23:44:17 Odalys Mahoney [facility] FERRITIN SERUM 2024-09-27 23:43:00 [facility] 2024-09-27 23:43:00 Sasha Pineda [facility] IRON PANEL 2024-09-27 23:43:00 Odalys Mahoney [facility] PROTHROMBIN TIME / INR 2024-09-27 23:43:00 America Mahoney ala [facility] ACTIVATED PARTIAL THRMPLAS JADE 2024-09-27 23:43:00 Odalys Mahoney [facility] HB ABO GROUPING 2024-09-27 23:43:00 Odalys Mahoney [facility] N-TERMINAL PRO-BNP 2024-09-27 23:43:00 Odalys Mahoney [facility] VITAMIN D, 25-OH 2024-09-27 23:43:00 Odalys Mahoney [facility] FERRITIN SERUM 2024-09-27 23:43:00 [facility] TROPONIN I 2024-09-27 23:43:00 Sasha Pineda [facility] IRON PANEL 2024-09-27 23:43:00 Odalys Mahoney [facility] PROTHROMBIN TIME / INR 2024-09-27 23:43:00 America Mahoney ala [facility] ACTIVATED PARTIAL THRMPLAS JADE 2024-09-27 23:43:00 Odalys Mahoney [facility] HB ABO GROUPING 2024-09-27 23:43:00 [facility]ys [facility] N-TERMINAL PRO-BNP 2024-09-27 23:43:00 Odalys Mahoney [facility] VITAMIN D, 25-OH 2024-09-27 23:43:00 Odalys Mahoney [facility] URINE CULTURE 2024-09-27 23:36:00 Odalys Mahoney [facility] URINE CULTURE 2024-09-27 23:36:00 Odalys Mahoney [facility] URINALYSIS 2024-09-27 23:34:00 Odalys Mahoney [facility] URINALYSIS 2024-09-27 23:34:00 Odalys Mahoney [facility] HB ECG ROUTINE & RHYTHM STRIP 2024-09-27 23:33:27 Odalys Mahoney [facility] HB ECG ROUTINE & RHYTHM STRIP 2024-09-27 23:33:27 Odalys Mahoney [facility] XR ANKLE <3 VW RIGHT 2024-09-27 21:40:00 Noemi Mahoney [facility] XR FEMUR 2 VW RIGHT 2024-09-27 21:40:00 Odalys Mahoney [facility] XR HIPS 2 VW RIGHT 2024-09-27 21:40:00 Odalys Mahoney [facility] XR KNEE <3 VW RIGHT 2024-09-27 21:40:00 Odalys Mahoney [facility] XR PELVIS <3 VW 2024-09-27 21:40:00 Odalys Mahoney [facility] XR TIBIA FIBULA 2 VW RIGHT 2024-09-27 21:40:00 Odalys Mahoney [facility] XR ANKLE <3 VW RIGHT 2024-09-27 21:40:00 Noemi Mahoney [facility] XR FEMUR 2 VW RIGHT 2024-09-27 21:40:00 Odalys Mahoney [facility] XR HIPS 2 VW RIGHT 2024-09-27 21:40:00 Odalys Mahoney [facility] XR KNEE <3 VW RIGHT 2024-09-27 21:40:00 Odalys Mahoney [facility] XR PELVIS <3 VW 2024-09-27 21:40:00 Odalys Mahoney [facility] XR TIBIA FIBULA 2 VW RIGHT 2024-09-27 21:40:00 Odalys Mahoney [facility] CREATINE KINASE 2024-09-27 20:54:00 Odalys Mahoney [facility] COMP. METABOLIC PANEL (39991) 2024-09-27 20:54:00 Odalys Mahoney [facility] CBC WITH DIFF 2024-09-27 20:54:00 Odalys Mahoney [facility] CREATINE KINASE 2024-09-27 20:54:00 Odalys Mahoney [facility] COMP. METABOLIC PANEL (23113) 2024-09-27 20:54:00 Odalys Mahoney [facility] CBC WITH DIFF 2024-09-27 20:54:00 Odalys Mahoney [facility] AUTHORIZATION FOR RELEASE OF PHI 2021-03-09 06:01:00 Doctor Unassigned, [place] [facility] Encounters Start Date/Time End Date/Time Encounter Type Admission Type Attending [facility] Facility Care Department Encounter ID Source 2024-07-06 13:57:00 Outpatient Bowen, Angelina STLMLC ST[facility] [id number] [facility] 2024-06-26 10:28:00 Outpatient Bowen, Angelina STLMLC STLMLC [id number] [facility] 2024-05-23 12:01:00 Outpatient Bowen, Angelina STLMLC STLMLC [id number] [facility] 2024-01-19 11:25:00 Outpatient Bowen, Angelina STLMLC STLMLC [id number] [facility] 2024-01-17 14:45:00 Outpatient Bowen, Angelina STLMLC STLMLC [id number] [facility] 2024-01-16 08:25:00 Outpatient Bowen, Angelina STLMLC STLMLC [id number] [facility] 2023-11-17 11:26:00 Outpatient Bowen, Angelina STLMLC STLMLC [id number] [facility] 2023-11-10 09:50:00 Outpatient Bowen, Angelina STLMLC STLMLC [id number] [facility] 2023-10-18 17:15:00 Outpatient Bowen, Angelina STLMLC STLMLC [id number] [facility] 2023-08-29 10:04:00 Outpatient Bowen, Angelina STLMLC STLMLC [id number] [facility] 2023-04-26 14:07:00 Outpatient Bowen, Angelina STLMLC STLMLC [id number] [facility] 2023-03-24 13:49:00 Outpatient Bowen, Angelina STLMLC STLMLC [id number] [facility] 2023-03-23 08:13:00 Outpatient Bowen, Angelina STLMLC STLMLC [id number] [facility] 2023-03-18 08:34:00 Outpatient BowenAngelina STCECILIALC STLMLC [id number] [facility] 2023-03-15 15:19:01 Outpatient BowenAngelina STLMLC STLMLC [id number] [facility] 2023-02-21 09:03:00 Outpatient BowenAngelina STLMLC STLMLC [id number] [facility] 2022-11-19 10:49:00 Outpatient BowenNatei STLMLC STLMLC [id number] [facility] 2022-07-28 13:30:02 Outpatient BowenAngelina STLMLC STLMLC [id number] [facility] 2022-07-27 08:17:00 Outpatient BowenAngelina STLMLC STLMLC [id number] [facility] 2022-07-12 15:13:01 Outpatient BowenAngelina STLMLC STLMLC [id number] [facility] 2022-05-25 10:19:01 Outpatient BowenNatei STLMLC STLMLC [id number] [facility] 2022-03-10 11:22:02 Outpatient Le, Na STLMLC STLMLC [id number] [facility] 2021-11-27 09:31:00 Outpatient Le, Na STLMLC STLMLC [id number] [facility] 2021-07-08 10:44:02 Outpatient El, Na STLMLC STLMLC [id number] [facility] 2021-06-01 12:20:01 Outpatient Le, Na STLMLC STLMLC [id number] [facility] 2021-05-28 16:29:01 Outpatient Xiomy Le STRAUL STLMLC [id number] [facility] 2021-05-06 14:40:25 Outpatient Xiomy Le STRAUL STLMLC [id number] [facility] 2021-05-06 14:39:57 Outpatient Xiomy Le STRAUL STLMLC [id number] [facility] 2021-05-06 13:29:46 Outpatient Xiomy Le STRAUL STLMLC [id number] [facility] 2021-05-06 13:29:12 Outpatient Xiomy Le STRAUL STLMLC [id number] [facility] 2021-05-06 13:27:11 Outpatient STRAUL STLMLC [id number] [facility] 2024-12-06 00:00:00 2024-12-06 00:00:00 Outpatient [facility] [id number] [facility] 2024-12-06 00:00:00 2024-12-06 00:00:00 Outpatient Sury VARELA DELORIS [facility] ACO [id number] [facility] 2024-12-03 00:00:00 2024-12-03 13:04:33 Telephone Chaka [facility] [id number] [id number] [id number] [facility] 2024-12-03 11:00:00 2024-12-03 12:00:00 BRITNI Visit- Initial Cara Devries .[id number] [address] [place] [address] 2024-11-30 14:15:00 2024-11-30 15:00:00 Palliative Social Work Initial Consult Afsaneh Mack DEV DEV [id number] [facility] 2024-11-12 00:00:00 2024-11-12 14:06:07 [facility] 1..840.114 350.1.13.10 [id number] [facility] 2024-10-31 00:00:00 2024-10-31 00:00:00 (TEL) STLMLC STLMLC [id number] [facility] 2024-10-29 00:00:00 2024-10-29 00:00:00 (TEL) STLMLC STLMLC [id number] [facility] 2024-10-25 00:00:00 2024-10-25 11:57:55 [facility] 1..840.114 350.1.13.10 [id number] [id number] [facility] 2024-10-25 00:00:00 2024-10-25 00:00:00 (TEL) STLMLC STLMLC [id number] [facility] 2024-10-24 00:00:00 2024-10-24 09:45:04 Transition of Care Marine Rucker Miatha R [address] ..840.114 350.1.13.10 4.2.7.2.686 [id number] [facility] 2024-10-15 17:18:00 2024-10-23 15:27:00 Hospital Encounter X OLYA HAMMER [facility] [id number] [facility] 2024-10-19 06:45:00 2024-10-19 08:11:00 [facility] ..840.114 350.1.13.10 4.2.7.2.686 [id number] [facility] 2024-10-10 00:00:00 2024-10-10 00:00:00 (TEL) STLMLC STLMLC [id number] [facility] 2024-10-09 00:00:00 2024-10-09 12:40:24 Transition of Care Marine Rucker Miatha R [facility] 1.2.840.114 350.1.13.10 4.2.7.2.686 [id number] [facility] 2024-09-27 15:06:00 2024-10-08 17:40:00 Hospital Encounter X KIRK ETIENNEI [facility] JAI [id number] [facility] 2024-09-29 12:10:00 2024-09-29 15:34:00 Anesthesia Event Charley Varela Adam Nabeel [facility] 1.2.840.114 350.1.13.10 4.2.7.2.686 [id number] [facility] 2024-09-29 13:00:00 2024-09-29 15:08:00 Surgery Chaka José [facility] 1.2.840.114 350.1.13.10 4.2.7.2.686 [id number] [facility] 2024-09-28 00:00:00 2024-09-28 00:00:00 (TEL) STLMLC STLMLC [id number] [facility] 2024-07-10 00:00:00 2024-07-10 00:00:00 (TEL) STLMLC STLMLC [id number] [facility] 2024-07-09 00:00:00 2024-07-09 00:00:00 OFFICE VISIT ESTAB PT LEVEL 4 STLMLC STLMLC [id number] [facility] 2024-06-22 00:00:00 2024-06-22 00:00:00 (TEL) STLMLC STLMLC [id number] [facility] 2024-05-23 00:00:00 2024-05-23 00:00:00 (TEL) STLMLC STLMLC [id number] [facility] 2024-02-03 00:00:00 2024-02-03 00:00:00 (TEL) STLMLC STLMLC [id number] [facility] 2024-01-25 00:00:00 2024-01-25 00:00:00 (TEL) STLMLC STLMLC [id number] [facility] 2024-01-23 00:00:00 2024-01-23 00:00:00 (IN/ASP) INJ ASP STLMLC STLMLC [id number] [facility] 2024-01-18 00:00:00 2024-01-18 00:00:00 OFFICE VISIT ESTAB PT LEVEL 4 STLMLC STLMLC [id number] [facility] 2024-01-18 00:00:00 2024-01-18 00:00:00 (TEL) STLMLC STLMLC [id number] [facility] 2024-01-10 00:00:00 2024-01-10 00:00:00 (IN/ASP) INJ ASP STLMLC STLMLC [id number] [facility] 2024-01-03 00:00:00 2024-01-03 00:00:00 (F/U) Follow Up Visit STLMLC STLMLC [id number] [facility] 2024-01-02 00:00:00 2024-01-02 00:00:00 (TEL) STLMLC STLMLC [id number] [facility] 2023-11-29 00:00:00 2023-11-29 00:00:00 (TEL) STLMLC STLMLC [id number] [facility] 2023-11-21 00:00:00 2023-11-21 00:00:00 OFFICE VISIT ESTAB PT LEVEL 4 STLMLC STLMLC [id number] [facility] 2023-11-21 00:00:00 2023-11-21 00:00:00 (TEL) STLMLC STLMLC [id number] [facility] 2023-11-10 00:00:00 2023-11-10 00:00:00 (TEL) STLMLC STLMLC [id number] [facility] 2023-10-20 00:00:00 2023-10-20 00:00:00 (TEL) STLMLC STLMLC [id number] [facility] 2023-10-19 00:00:00 2023-10-19 00:00:00 OFFICE VISIT ESTAB PT LEVEL 4 STLMLC STLMLC [id number] [facility] 2023-10-03 00:00:00 2023-10-03 00:00:00 (TEL) STLMLC STLMLC [id number] [facility] 2023-09-15 00:00:00 2023-09-15 00:00:00 (TEL) STLMLC STLMLC [id number] [facility] 2023-08-31 00:00:00 2023-08-31 00:00:00 SUB ANNUAL [facility] WELLNESS VISIT [facility] STLMLC [id number] [facility] 2023-08-31 00:00:00 2023-08-31 00:00:00 OFFICE VISIT ESTAB PT LEVEL 4 [facility] ST[facility] [id number] [facility] 2023-08-08 00:00:00 2023-08-08 00:00:00 (TEL) [facility]LMLC STLMLC [id number] [facility] 2023-05-16 00:00:00 2023-05-16 00:00:00 (TEL) [facility] ST[facility]C [id number] [facility] 2023-05-09 00:00:00 2023-05-09 00:00:00 (IN/ASP) INJ ASP [facility]LMLC STLMLC [id number] [facility] 2023-05-02 00:00:00 2023-05-02 00:00:00 (IN/ASP) INJ ASP [facility]C STLMLC [id number] [facility] 2023-03-25 00:00:00 2023-03-25 00:00:00 OFFICE VISIT ESTAB PT LEVEL 3 [facility] ST[facility]C [id number] [facility] 2023-03-25 00:00:00 2023-03-25 00:00:00 (TEL) [facility] ST[facility]C [id number] [facility] 2023-03-18 00:00:00 2023-03-18 00:00:00 OFFICE VISIT ESTAB PT LEVEL 3 [facility] ST[facility] [id number] [facility] 2023-03-17 00:00:00 2023-03-17 00:00:00 OFFICE VISIT ESTAB PT LEVEL 4 [facility] [id number] [facility] 2023-03-17 00:00:00 2023-03-17 00:00:00 (TEL) [facility] STL[facility]C [id number] [facility] 2023-02-28 00:00:00 2023-02-28 00:00:00 (TEL) [facility] ST[facility]C [id number] [facility] 2023-02-23 00:00:00 2023-02-23 00:00:00 OFFICE VISIT ESTAB PT LEVEL 4 [facility] [id number] [facility] 2022-11-23 00:00:00 2022-11-23 00:00:00 OFFICE VISIT ESTAB PT LEVEL 4 [facility] [id number] [facility] 2022-11-04 00:00:00 2022-11-04 00:00:00 (TEL) STLMLC STLMLC [id number] [facility] 2022-10-01 00:00:00 2022-10-01 00:00:00 (TEL) STLMLC STLMLC [id number] [facility] 2022-09-27 00:00:00 2022-09-27 00:00:00 OFFICE VISIT ESTAB PT LEVEL 4 STLMLC STLMLC [id number] [facility] 2022-09-09 00:00:00 2022-09-09 00:00:00 (TEL) STLMLC STLMLC [id number] [facility] 2022-07-28 00:00:00 2022-07-28 00:00:00 OFFICE VISIT ESTAB PT LEVEL 4 STLMLC STLMLC [id number] [facility] 2022-07-28 00:00:00 2022-07-28 00:00:00 SUB ANNUAL [facility]LL[facility] VISIT STLMLC STLMLC [id number] [facility] 2022-05-25 00:00:00 2022-05-25 00:00:00 (TEL) STLMLC STLMLC [id number] [facility] 2022-05-17 00:00:00 2022-05-17 00:00:00 (TEL) STLMLC STLMLC [id number] [facility] 2022-03-11 00:00:00 2022-03-11 00:00:00 OFFICE VISIT EST PT LEVEL 3 STLMLC STLMLC [id number] [facility] 2022-01-29 00:00:00 2022-01-29 00:00:00 (TEL) STLMLC STLMLC [id number] [facility] 2021-12-01 00:00:00 2021-12-01 00:00:00 (TEL) STLMLC STLMLC [id number] [facility] 2021-12-01 00:00:00 2021-12-01 00:00:00 OL DIG E/M SVC 21+ MIN STLMLC STLMLC [id number] [facility] 2021-10-29 00:00:00 2021-10-29 00:00:00 (TEL) STLMLC STLMLC [id number] [facility] 2021-10-01 00:00:00 2021-10-01 00:00:00 (TEL) STLMLC STLMLC [id number] [facility] 2021-09-24 00:00:00 2021-09-24 00:00:00 (IN/ASP) INJ ASP STLMLC STLMLC [id number] [facility] 2021-09-17 00:00:00 2021-09-17 00:00:00 (IN/ASP) INJ ASP STLMLC STLMLC [id number] [facility] 2021-09-08 00:00:00 2021-09-08 00:00:00 (IN/ASP) INJ ASP STLMLC STLMLC [id number] [facility] 2021-08-04 00:00:00 2021-08-04 00:00:00 OFFICE VISIT EST PT LEVEL 3 STLMLC STLMLC [id number] [facility] 2021-07-15 00:00:00 2021-07-15 00:00:00 (TEL) STLMLC STLMLC [id number] [facility] 2021-07-10 00:00:00 2021-07-10 00:00:00 (TEL) STLMLC STLMLC [id number] [facility] 2021-07-09 00:00:00 2021-07-09 00:00:00 OFFICE VISIT ESTAB PT LEVEL 4 STLMLC STLMLC [id number] [facility] 2021-05-29 00:00:00 2021-05-29 00:00:00 (TEL) STLMLC STLMLC [id number] [facility] 2021-05-28 00:00:00 2021-05-28 00:00:00 OFFICE VISIT NEW PT LEVEL 4 STLMLC STLMLC [id number] [facility] 2021-05-27 00:00:00 2021-05-27 00:00:00 (TEL) STLMLC STLMLC [id number] [facility] 2021-05-25 00:00:00 2021-05-25 00:00:00 (TEL) STLMLC STLMLC [id number] [facility] 2021-05-12 00:00:00 2021-05-12 00:00:00 (TEL) STLMLC STLMLC [id number] [facility] 2021-05-05 00:00:00 2021-05-05 00:00:00 OFFICE VISIT ESTAB PT LEVEL 4 STLMLC STLMLC [id number] [facility] 2021-04-13 00:00:00 2021-04-13 00:00:00 (TEL) STLMLC STLMLC [id number] [facility] 2021-03-09 00:00:00 2021-03-09 00:00:00 [facility] 1.2.840.114 350.1.13.10 4.2.7.2.686 [id number] [facility] 2021-03-09 00:00:00 2021-03-09 00:00:00 Orders Only Doctor Unassigned, [place] [facility] 1.2.840.114 350.1.13.10 4.2.7.2.686 [id number] [facility] 2021-02-23 10:00:00 2021-02-23 23:59:00 Outpatient R SINDHU [facility]EV[facility] [id number] [facility] 2021-02-23 10:00:00 2021-02-23 23:59:00 [facility] 1.2.840.114 350.1.13.10 4.2.7.2.686 [id number] [facility] 2021-02-23 10:53:36 2021-02-23 11:25:52 [facility] 1.2.840.114 350.1.13.10 4.2.7.2.686 [id number] [facility] 2021-02-23 11:00:00 2021-02-23 11:00:00 [facility] [id number] [facility] 2021-02-02 00:00:00 2021-02-02 00:00:00 OFFICE VISIT ESTAB PT LEVEL 4 STLMLC STLMLC [id number] [facility] 2021-01-29 11:00:00 2021-01-29 11:00:00 [facility] [id number] [facility] 2021-01-21 16:30:00 2021-01-21 23:59:00 Hospital Encounter Rodney [facility] 1..840.114 350.1.13.10 4.2.7.2.686 [id number] [facility] 2021-01-21 16:30:00 2021-01-21 16:30:00 [facility] [id number] [facility] 2020-12-17 12:24:16 2020-12-17 23:59:00 [facility]840.114 350.1.13.10 4.2.7.2.686 [id number] [facility] 2020-12-17 12:21:03 2020-12-17 12:36:03 Nicker Visit Pob, [facility] 1.2.840.114 350.1.13.10 4.2.7.2.686 [id number] [facility] 2020-12-17 12:21:03 2020-12-17 12:36:03 Nicker Visit Pob, [facility] 1.2.840.114 350.1.13.10 4.2.7.2.686 [id number] [facility] 2020-12-17 10:55:16 2020-12-17 11:48:53 [facility] 1.2.840.114 350.1.13.10 4.2.7.2.686 [id number] [facility] 2020-12-17 10:40:00 2020-12-17 10:40:00 [facility] [id number] [facility] 2020-11-11 00:00:00 2020-11-11 00:00:00 Outpatient STLMLC STLMLC [id number] [facility] 2020-11-03 00:00:00 2020-11-03 00:00:00 Outpatient STLMLC STLMLC [id number] [facility] 2020-08-13 09:30:00 2020-08-13 09:34:50 Outpatient Sury DE LEON [facility] [id number] [facility] 2020-07-16 15:10:00 2020-07-16 15:07:44 Outpatient Sury DE LEON [facility] [id number] [facility] Results Test Description Test Time Test Comments Results Result Co mments Source [facility] 1 [id number] 21:54:02ORDERING PHYSICIAN: GÓMEZ ETIENNE. HISTORY: R PICC placement TECHNIQUE: AP. COMPARISON: 10/15/2024 FINDINGS: Support equipment: ?A left subclavian line terminates at the superior venacava. A left PICC line terminates at the cavoatrial junction. Lungs: ?There are low lung volumes. Mild right perihilarlinear strands ofsubsegmental atelectasis are noted. Pleura: ?No effusion or pleural disease is seen. ?No pneumothorax. Mediastinum/Cristal: ?No masses or adenopathy. Heart: ?The heart is not enlarged. Other: ?Rib fractures are better visualized on recent CTA.[facility] right w [id number] 00:51:18EXAM: CT FEMUR RIGHT W CONTRAST HISTORY: Soft tissue infection suspected, thigh, xray done COMPARISON: Radiographs dated October 2024 FINDINGS: Contrast-enhanced multiplanar CT imaging of the right femur was performedwith nondocumentation of IV contrast dosage in PACS. Circumscribed hypoattenuating fluid with a thin enhancing rim is notedalong the lateral thigh subcutaneous with surrounding subcutaneous fatstranding. This fluid collection measures at least 7.3 cm in transversedimension and 18.3 cmin craniocaudal dimension. This collection extends tothe lateral deep quadriceps muscle fascia and tensor fascia kavin and abutsthe lateral skin surface of the proximal thigh with multiple skin staplesin place. Foci of gas are seen within this fluid collection. There isintramedullary nail fixation securing a highly comminuted intertrochantericfracture with knee threaded femoral head and neck screwabutting thefemoral head subchondral bone plate. There is extensive swelling at theintertrochanteric fracture bed extending into the surrounding quadricepsand adductor musculature. There are scattered foci of gas within theintertrochanteric fracture bed. The lateral subcutaneous fluid collectionappe ars to partially merging with the lateral aspect of this fracture bedswelling. Tricompartmental marginal osteophytes are seen with hypertrophyof the tibial spines. Superimposed subcortical cystic change with markedjoint space loss is noted. Prominent inguinal lymph nodes are present.Severe osteopenia is present. [facility] w [id number] 00:51:18 EXAM: CT FEMUR RIGHT W CONTRAST HISTORY: Soft tissue infection suspected, thigh, xray done COMPARISON: Radiographs dated October 2024 FINDINGS: Contrast-enhanced multiplanar CT imaging of the right femur was performedwith nondocumentation of IV contrast dosage in PACS. Circumscribed hypoattenuating fluid with a thin enhancing rim is notedalong the lateral thigh subcutaneous with surrounding subcutaneous fatstranding. This fluid collection measures at least 7.3 cm in transversedimension and 18.3 cmin craniocaudal dimension. This collection extends tothe lateral deep quadriceps muscle fascia and tensor fascia kavin and abutsthe lateral skin surface of the proximal thigh with multiple skin staplesin place. Foci of gas are seen within this fluid collection. There isintramedullary nail fixation securing a highly comminuted intertrochantericfracture with knee threaded femoral head and neck screwabutting thefemoral head subchondral bone plate. There is extensive swelling at theintertrochanteric fracture bed extending into the surrounding quadricepsand adductor musculature. There are scattered foci of gas within theintertrochanteric fracture bed. The lateral subcutaneous fluid collectionappe ars to partially merging with the lateral aspect of this fracture bedswelling. Tricompartmental marginal osteophytes are seen with hypertrophyof the tibial spines. Superimposed subcortical cystic change with markedjoint space loss is noted. Prominent inguinal lymph nodes are present.Severe osteopenia is present. [facility] Packed RBC (in units), 1 Units 2024-10-16 21:04:15* Test Item Value Reference Range Interpretation Comme nts Cross Match Result (test code = 4409) Compatible ISBT Blood Type Code (test code = 147870) 5100 Unit Blood Type (test code = 4410) O Pos Unit Number (test code = 4411) [id number] Blood Expiration Date & Time (test code = 481988) 379534671143 Status Information (test code = 4412) Issued Product Identification (test code = 4413) Red Blood Cells Product Code (test code = 4414) [id number] Performed at [facility] Laboratory Services - [facility] Blood [address] [place] [phone] Free: [phone] No. [id number] [facility] Packed RBC (in units), 1 Units 2024-10-16 21:04:15* Test Item Value Reference Range Interpretation Comme nts Cross Match Result (test code = 4409) Compatible ISBT Blood Type Code (test code = 431197) 5100 Unit Blood Type (test code = 4410) O Pos Unit Number (test code = 4411) [id number] Blood Expiration Date & Time (test code = 008743) 145301296114 Status Information (test code = 4412) Issued Product Identification (test code = 4413) Red Blood Cells Product Code (test code = 4414) [id number] Performed at [facility] Laboratory Services - [facility] Blood [address] [place] [phone] Free: [phone] No. [id number] [place] [id number] 16:59:41* Test Item Value Reference Range Interpretation Comme nts TROPONIN I (test code = 1462080567) 0.077 ng/mL <=0.034 H SAMMI (test code = SAMMI) Reference (Normal) Range (defined by the 99th percentile reference limit): <= 0.034 ng/mL Note: Cardiac troponin begins to rise 3-4 hours after the onset of ischemia. Repeat in 4-6 hours if the sample was drawn within 3-4 hours of the onset of the symptom and found normal. Diagnosis of myocardial injury is made with acute changes in cTn concentrations with at least one serial sample above the 99th percentile upper reference limit (URL), taken together with the patient's clinical presentation. Biotin has been reported to cause a negative bias, interpret results relative to patient's use of biotin. Lab Interpretation (test code = 82051-5) Abnormal [facility] [id number] 16:59:41* Test Item Value Reference Range Interpretation Comme nts TROPONIN I (test code = 7268899451) 0.077 ng/mL <=0.034 H SAMMI (test code = SAMMI) Reference (Normal) Range (defined by the 99th percentile reference limit): <= 0.034 ng/mL Note: Cardiac troponin begins to rise 3-4 hours after the onset of ischemia. Repeat in 4-6 hours if the sample was drawn within 3-4 hours of the onset of the symptom and found normal. Diagnosis of myocardial injury is made with acute changes in cTn concentrations with at least one serial sample above the 99th percentile upper reference limit (URL), taken together with the patient's clinical presentation. Biotin has been reported to cause a negative bias, interpret results relative to patient's use of biotin. Lab Interpretation (test code = 15271-0) Abnormal [facility] [id number] 15:56:57* Test Item Value Reference Range Interpretation Comme nts IONIZED CA (test code = 0237041275) 4.1 mg/dL 4.50-5.30 L PH SERUM (test code = 3333463196) 7.38 7.35-7.45 Lab Interpretation (test cod e = 19735-0) Abnormal [facility] [id number] 15:56:57* Test Item Value Reference Range Interpretation Comme nts IONIZED CA (test code = 4767721521) 4.1 mg/dL 4.50-5.30 L PH SERUM (test code = 5250665924) 7.38 7.35-7.45 Lab Interpretation (test cod e = 43909-1) Abnormal [facility] CHEST 1 [id number] 13:03:24EXAM: XR CHEST 1 10/15/2024 5:29 PM HISTORY: 74 years old Female with fever TECHNIQUE: Single AP view of the chest. [facility] [id number] 13:03:24EXAM: XR CHEST 1 10/15/2024 5:29 PM HISTORY: 74 years old Female with fever TECHNIQUE: Single AP view of the chest. COMPARISON[facility] Dptolzjbtxxe9539-81-49 12:00:19* Test Item Value Reference Range Interpretation Comme nts WBC (test code = 6690-2) 6.69 4.30-11.10 RBC (test code = 789-8) 2.47 3.93-5.25 L HGB (test code = 718-7) 6.9 g/dL 11.6-15.0 L HCT (test code = 4544-3) 22.8 % 35.7-45.2 L MCV (test code = 787-2) 92.3 fL 80.6-95.5 MCH (test code = 785-6) 27.9 pg 25.9-32.8 MCHC (test code = 786-4) 30.3 g/dL 31.6-35.1 L RDW-SD (test code = 69358-6) 53.7 fL 39.0-49.9 H RDW-CV (test code = 788-0) 15.9 % 12.0-15.5 H PLT (test code = 777-3) 206 166-358 MPV (test code = 40566-1) 10 fL 9.5-12.9 NRBC/100 WBC (test code = 0193601186) 0 0.0-10.0 NRBC x10^3 (test code = 2098129437) See_Comment [Automated [employer]] The system which generated this result transmitted reference range: 10*3/?L. The reference range was not used to interpret this result as normal/abnormal. SEG % (test code = 65300-1) 57 % 33-76 BAND % (test code = 02473-3) 21 % 0-1 H LYMPH % (test code = 94944-2) 11 % 14-54 L MONO % (test code = 59068-9) 11 % 0-4 H GIANT PLATELETS (test code = 5908-9) Present See_Comment A [Automated [employer]] The system which generated this result transmitted reference range: (none). The reference range was not used to interpret this result as normal/abnormal. Lab Interpretation (test code = 49693-4) Abnormal [facility] with Jhbicxqtgxav5316-10-98 12:00:19* Test Item Value Reference Range Interpretation Comme nts WBC (test code = 6690-2) 6.69 4.30-11.10 RBC (test code = 789-8) 2.47 3.93-5.25 L HGB (test code = 718-7) 6.9 g/dL 11.6-15.0 L HCT (test code = 4544-3) 22.8 % 35.7-45.2 L MCV (test code = 787-2) 92.3 fL 80.6-95.5 MCH (test code = 785-6) 27.9 pg 25.9-32.8 MCHC (test code = 786-4) 30.3 g/dL 31.6-35.1 L RDW-SD (test code = 30350-0) 53.7 fL 39.0-49.9 H RDW-CV (test code = 788-0) 15.9 % 12.0-15.5 H PLT (test code = 777-3) 206 166-358 MPV (test code = 96145-6) 10 fL 9.5-12.9 NRBC/100 WBC (test code = 2140463327) 0 0.0-10.0 NRBC x10^3 (test code = 5386063222) See_Comment [Automated [employer]] The system which generated this result transmitted reference range: 10*3/?L. The reference range was not used to interpret this result as normal/abnormal. SEG % (test code = 16717-8) 57 % 33-76 BAND % (test code = 55983-6) 21 % 0-1 H LYMPH % (test code = 00074-0) 11 % 14-54 L MONO % (test code = 86129-9) 11 % 0-4 H GIANT PLATELETS (test code = 5908-9) Present See_Comment A [Automated [employer]] The system which generated this result transmitted reference range: (none). The reference range was not used to interpret this result as normal/abnormal. Lab Interpretation (test code = 79892-6) [facility] 10:50:47* Test Item Value Reference Range Interpretation Comme nts MAGNESIUM (test code = 8014172325) 1.8 mg/dL 1.7-2.4 Lab Interpretation (test cod e = 90633-6) [facility] 10:50:47* Test Item Value Reference Range Interpretation Comme nts MAGNESIUM (test code = 0415958578) 1.8 mg/dL 1.7-2.4 Lab Interpretation (test cod e = 00851-3) Normal [facility] (NA, K, CL, CO2, Glucose, BUN, Creatinine, CA)2024-10-16 10:50:26* Test Item Value Reference Range Interpretation Comme nts NA (test code = 9381658245) 135 mmol/L 135-145 K (test code = 2553224522) 3.6 mmol/L 3.5-5.0 CL (test code = 3144148833) 106 mmol/L 98-108 CO2 TOTAL (test code = 7275109101) 26 mmol/L 23-31 AGAP (test code = 6288513564) 3 2-16 BUN (test code = 6524057374) 22 mg/dL 7-23 GLUCOSE (test code = 5914528706) 101 mg/dL 70-110 CREATININE (test code = 2160-0) 0.68 mg/dL 0.50-1.04 CALCIUM (test code = 2772106923) 6.9 mg/dL 8.6-10.6 L eGFR (test code = 84881-9) 90.4 mL/min/1.73m2 CKD-EPI eGFR (2020). Assuming creatinine has been stable day-to-day for at least three months, the eGFR indicates Category G1 (>= 90 mL/min/1.73 m2) Lab Interpretation (test code = 23702-4) Abnormal [facility] (NA, K, CL, CO2, Glucose, BUN, Creatinine, CA)2024-10-16 10:50:26* Test Item Value Reference Range Interpretation Comme nts NA (test code = 8766685127) 135 mmol/L 135-145 K (test code = 4559839048) 3.6 mmol/L 3.5-5.0 CL (test code = 6876772639) 106 mmol/L 98-108 CO2 TOTAL (test code = 1664859750) 26 mmol/L 23-31 AGAP (test code = 3176125001) 3 2-16 BUN (test code = 0413686665) 22 mg/dL 7-23 GLUCOSE (test code = 1602532264) 101 mg/dL 70-110 CREATININE (test code = 2160-0) 0.68 mg/dL 0.50-1.04 CALCIUM (test code = 7297608733) 6.9 mg/dL 8.6-10.6 L eGFR (test code = 78632-3) 90.4 mL/min/1.73m2 CKD-EPI eGFR (2020). Assuming creatinine has been stable day-to-day for at least three months, the eGFR indicates Category G1 (>= 90 mL/min/1.73 m2) Lab Interpretation (test code = 93536-6) Abnormal [facility] 1 [id number] 06:23:53EXAM: XR CHEST 1 VW COMPARISON: Same day CT chest HISTORY: central line insertion FINDINGS: The left-sided central venous catheter tip projects over the proximal SVC. The lung volumes are unchanged. No focal consolidation, pleural effusion orpneumothorax. The cardiac silhouette is unchanged. Calcified thoracic aorta. Left-sided subacute rib fractures are better characterized on the same dayCT thorax examination.[facility] 1 [id number] 06:23:53 EXAM: XR CHEST 1 VW COMPARISON: Same day CT chest HISTORY: central line insertion FINDINGS: The left-sided central venous catheter tip projects over the proximal SVC. The lung volumes are unchanged. No focal consolidation, pleural effusion orpneumothorax. The cardiac silhouette is unchanged. Calcified thoracic aorta. Left-sided subacute rib fractures are better characterized on the same dayCT thorax examination.[facility] 2 vw right 2024-10-16 05:43:33EXAM: XR FEMUR 2 VW RIGHT HISTORY: 74 years old Female with pain COMPARISON: X-ray right femur 09/27/2024, operative radiographs 09/29/2024 FINDINGS: Imaging of the right femur demonstrates intramedullary nail fixation ofright intertrochanteric femoral neck fracture in near anatomic alignment.Fracture fragments are in similar position. The joint spaces aremaintained. Soft tissue swelling over the right hip and lower extremity [facility] 2 vw [id number] 05:43:33EXAM: XR FEMUR 2 VW RIGHT HISTORY: 74 years old Female with pain COMPARISON: X-ray right femur 09/27/2024, operative radiographs 09/29/2024 FINDINGS: Imaging of the right femur demonstrates intramedullary nail fixation ofright intertrochanteric femoral neck fracture in near anatomic alignment.Fracture fragments are in similar position. The joint spaces aremaintained. Soft tissue swelling over the right hip and lower extremityUnCorpus [facility] AreaCentral Line 2024-10-16 04:31:40Tyra Davis DO ? ? 10/15/2024 11:35 PMCentral Line Date/Time: 10/15/2024 11:31 PM Performed by: Tyra Davis DOAuthorized by: Tyra Davis DO ?Consent: ?Consent obtained: ?Verbal ?Consent givenby: ?Patient ?Risks, benefits, and alternatives were discussed: yes ? ?Risks discussed: ?Incorrect placement, bleeding and infectionUniversal protocol: ?Procedure explained and questions answered to patient or proxy's satisfaction: yes ? ?Patient identity confirmed: ?Verbally with patient and arm bandPre- procedure details: ?Indication(s): central venous access ? ?Hand hygiene: Hand hygiene performed prior to insertion ? ?Sterile barrier technique: All elements of maximal sterile technique followed ? ?Skin preparation: ?Chlorhexidine ?Skin preparation agent: Skin preparation agent completely dried prior to procedure ?Sedation: ?Sedation type: ?NoneAnesthesia: ?Anesthesia method: ?Local infilt ration ?Local anesthetic: ?Lidocaine 1% w/o epiProcedure details: ?Location: ?L subclavian ?Patientposition: ?Supine ?Catheter size: ?8.5 Fr ?Landmarks identified: yes ? ?Number of attempts: ?1 ?Successful placement: yes ?Post- procedure details: ?Post-procedure: ?Dressing applied and line sutured ? Assessment: ?Blood return through all ports, free fluid flow, no pneumothorax on x-ray and placement verified by x-ray ?Procedure completion: ?Tolerated well, no immediate complications ?Complications: ?NoneUnCorpus Christ[facility] CT Chest pulmonary zkvnnayqu7773-74-16 03:27:54CT SCAN OF THE CHEST WITH CONTRAST 10/15/2024 10:05 PM TECHNIQUE: Multidetector helical CT scan of the chest was performedfollowing the intravenous administration of contrast. Coronal and sagittalreformats as well axial MIPs imaging were acquired. CLINICAL INFORMATION: Pulmonary embolism (PE) suspected, high prob COMPARISON: Correlation to chest radiograph dated 10/15/2024. FINDINGS: CARDIOVASCULAR: The enhancement of the pulmonary artery is adequate. Nopulmonary emboli to the level of subsegmentalarteries. Pulmonary trunk ismildly enlarged.The thoracic aorta is normal in caliber.No pericardial effusion. There is scattered moderate coronary arterycalcification. LYMPH NODES: No thoracic adenopathy. ?Prominent left axillary lymph nodesare noted. MEDIASTINUM/ LOWER NECK: ?No mediastinal mass is seen.. No actionablethyroid nodule is present. BRONCHOPULMONARY/PLEURA: The central airways are patent. The ?pulmonary parenchyma is normal. Nofocal opacities. No suspicious nodules..Right pleural plaque with calcifications. No pneumothorax. UPPER ABDOMEN: Left renal cysts. BONES/ CHEST WALL: Left fourth rib mildly displaced fracture with ongoinghealing. Subacute to chronic nondisplaced fracturesof the left thyroid andfifth ribs and the right ninth and 10th ribs.[facility] 2024-10-16 03:27:54CT SCAN OF THE CHEST WITH CONTRAST 10/15/2024 10:05 PM TECHNIQUE: Multidetector helical CT scan of the chest was performedfollowing the intravenous administration of contrast. Coronal and sagittalreformats as well axial MIPs imaging were acquired. CLINICAL INFORMATION: Pulmonary embolism (PE) suspected, high prob COMPARISON: Correlation to chest radiograph dated 10/15/2024. FINDINGS: CARDIOVASCULAR: The enhancement of the pulmonary artery is adequate. Nopulmonary emboli to the level of subsegmentalarteries. Pulmonary trunk ismildly enlarged.The thoracic aorta is normal in caliber.No pericardial e ffusion. There is scattered moderate coronary arterycalcification. LYMPH NODES: No thoracic adenopathy. ?Prominent left axillary lymph nodesare noted. MEDIASTINUM/ LOWER NECK: ?No mediastinal mass isseen.. No actionablethyroid nodule is present. BRONCHOPULMONARY/PLEURA: The central airways are patent. The ?pulmonary parenchyma is normal. Nofocal opacities. No suspicious nodules..Right pleural plaque with calcifications. No pneumothorax. UPPER ABDOMEN: Left renal cysts. BONES/ CHEST WALL: Left fourth rib mildly displaced fracture with ongoinghealing. Subacute to chronic nondisplaced fracturesof the left thyroid andfifth ribs and the right ninth and 10th ribs.[facility] 2 Hour Mpwcoj1936-12-93 23:03:59* Test Item Value Reference Range Interpretation Comme nts LACTIC ACID (test code = 6147114619) 1.17 mmol/L 0.50-2.20 Lab Interpretation (test cod e = 10080-6) Normal [facility] Acid with 2 Hour Nzaydl4882-18-75 23:03:59* Test Item Value Reference Range Interpretation Comme nts LACTIC ACID (test code = 4694695917) 1.17 mmol/L 0.50-2.20 Lab Interpretation (test cod e = 14513-0) [facility] Mwiz9474-22-42 22:09:00Tyra Davis DO ? ? 10/15/2024 11:35 PMCritical Care Performed by: Tyra Davis DOAuthorized by: Tyra Davis DO ?Critical care provider statement: ?Critical care time (minutes): ?37 ?Criticalcare time was exclusive of: ?Separately billable procedures and treating other patients and teaching time ?Critical care was necessary to treat or prevent imminent or life-threatening deterioration of the following conditions: ?Cardiac failure, circulatory failure, sepsis, shock and dehydration ?Critical care was time spent personally by me on the following activities: ?Examination of patient, evaluation of patient's response to treatment, re-evaluation of patient's condition, review of old charts, ordering and review of radiographic studies, ordering and review of laboratory studies and ordering and performing treatments and interventions ?Care discussed with: admitting provider ?[facility] Packed RBC (in units), 1 Zculw1224-75-22 17:34:01* Test Item Value Reference Range Interpretation Comme nts Cross Match Result (test code = 4409) Compatible ISBT Blood Type Code (test code = 816009) 5100 Unit Blood Type (test code = 4410) O Pos Unit Number (test code = 4411) [id number] Blood Expiration Date & Time (test code = 548478) 906521117952 Status Information (test code = 4412) Issued Product Identification (test code = 4413) Red Blood Cells Product Code (test code = 4414) [id number] Performed at [facility] Laboratory Services [facility] Blood [address] [place], [place] [id number] Free: [phone] No. [id number] [facility] Packed RBC (in units), 1 Units 2024-10-02 17:34:01* Test Item Value Reference Range Interpretation Comme nts Cross Match Result (test code = 4409) Compatible ISBT Blood Type Code (test code = 391718) 5100 Unit Blood Type (test code = 4410) O Pos Unit Number (test code = 4411) [id number] Blood Expiration Date & Time (test code = 323760) 908296890914 Status Information (test code = 4412) Issued Product Identification (test code = 4413) Red Blood Cells Product Code (test code = 4414) [id number] Performed at [facility] Laboratory Services - [facility] Blood [address] [place] [id number] Free: [phone] No. [id number] [facility] Screen - ONCE Haacsbg6817-35-03 14:56:00* Test Item Value Reference Range Interpretation Comme nts ABO & RH (test code = 20) O POSITIVE IAT (test code = 1185) Negative [facility] CampusType [facility] Screen - ONCE Iekgrgq9162-70-60 14:56:00* Test Item Value Reference Range Interpretation Comme nts ABO & RH (test code = 20) O POSITIVE IAT (test code = 1185) Negative [facility] CampusCbc with Jlfb9001-11-04 19:56:40* Test Item Value Reference Range Interpretation Comme nts WBC (test code = 6690-2) 17.92 4.30-11.10 H RBC (test code = 789-8) 2.57 3.93-5.25 L HGB (test code = 718-7) 7.2 g/dL 11.6-15.0 L HCT (test code = 4544-3) 22 % 35.7-45.2 L MCV (test code = 787-2) 85.6 fL 80.6-95.5 MCH (test code = 785-6) 28 pg 25.9-32.8 MCHC (test code = 786-4) 32.7 g/dL 31.6-35.1 RDW-SD (test code = 85735-3) 47.3 fL 39.0-49.9 RDW-CV (test code = 788-0) 15.9 % 12.0-15.5 H PLT (test code = 777-3) 247 166-358 MPV (test code = 88319-9) 10.2 fL 9.5-12.9 NRBC/100 WBC (test code = 1712771619) 0.2 0.0-10.0 NRBC x10^3 (test code = 3913871835) 0.04 See_Comment [Automated message] The system which generated this result transmitted reference range: 10*3/?L. The reference range was not used to interpret this result as normal/abnormal. GRAN MAT (NEUT) % (test code = 770-8) 80.5 % IMM GRAN % (test code = 7062808405) 2.7 % LYMPH % (test code = 736-9) 9.6 % MONO % (test code = 5905-5) 6.6 % EOS % (test code = 713-8) 0.4 % BASO % (test code = 706-2) 0.2 % GRAN MAT x10^3(ANC) (test code = 3726212822) 14.43 10*3/uL 1.88-7.09 H IMM GRAN x10^3 (test code = 4546703171) 0.48 10*3/uL 0.00-0.06 H LYMPH x10^3 (test code = 731-0) 1.72 10*3/uL 1.32-3.29 MONO x10^3 (test code = 742-7) 1.18 10*3/uL 0.33-0.92 H EOS x10^3 (test code = 711-2) 0.08 10*3/uL 0.03-0.39 BASO x10^3 (test code = 704-7) 0.03 10*3/uL 0.01-0.07 BASO STIPPLING (test code = 703-9) Present A POLYCHROMASIA (test code = 64292-3) 2+ See_Comment [Automated message] The system which generated this result transmitted reference range: 2+. The reference range was not used to interpret this result as normal/abnormal. Lab Interpretation (test code = 97201-4) Abnormal [facility] with Lgys1880-21-88 19:56:40* Test Item Value Reference Range Interpretation Comme nts WBC (test code = 6690-2) 17.92 4.30-11.10 H RBC (test code = 789-8) 2.57 3.93-5.25 L HGB (test code = 718-7) 7.2 g/dL 11.6-15.0 L HCT (test code = 4544-3) 22 % 35.7-45.2 L MCV (test code = 787-2) 85.6 fL 80.6-95.5 MCH (test code = 785-6) 28 pg 25.9-32.8 MCHC (test code = 786-4) 32.7 g/dL 31.6-35.1 RDW-SD (test code = 30068-6) 47.3 fL 39.0-49.9 RDW-CV (test code = 788-0) 15.9 % 12.0-15.5 H PLT (test code = 777-3) 247 166-358 MPV (test code = 97380-5) 10.2 fL 9.5-12.9 NRBC/100 WBC (test code = 6985391343) 0.2 0.0-10.0 NRBC x10^3 (test code = 3062414433) 0.04 See_Comment [Automated message] The system which generated this result transmitted reference range: 10*3/?L. The reference range was not used to interpret this result as normal/abnormal. GRAN MAT (NEUT) % (test code = 770-8) 80.5 % IMM GRAN % (test code = 7412652083) 2.7 % LYMPH % (test code = 736-9) 9.6 % MONO % (test code = 5905-5) 6.6 % EOS % (test code = 713-8) 0.4 % BASO % (test code = 706-2) 0.2 % GRAN MAT x10^3(ANC) (test code = 6283897235) 14.43 10*3/uL 1.88-7.09 H IMM GRAN x10^3 (test code = 4017585821) 0.48 10*3/uL 0.00-0.06 H LYMPH x10^3 (test code = 731-0) 1.72 10*3/uL 1.32-3.29 MONO x10^3 (test code = 742-7) 1.18 10*3/uL 0.33-0.92 H EOS x10^3 (test code = 711-2) 0.08 10*3/uL 0.03-0.39 BASO x10^3 (test code = 704-7) 0.03 10*3/uL 0.01-0.07 BASO STIPPLING (test code = 703-9) Present A POLYCHROMASIA (test code = 63091-6) 2+ See_Comment [Automated message] The system which generated this result transmitted reference range: 2+. The reference range was not used to interpret this result as normal/abnormal. Lab Interpretation (test code = 03497-7) Abnormal [facility] Mniedw3894-06-67 13:20:40* Test Item Value Reference Range Interpretation Comme nts PH (test code = 7597554413) 7.27 7.32-7.42 L PCO2 CHRIS (test code = 7495637971) 52 41-51 H PO2 CHRIS (test code = 6615495006) 27 25-40 AC VBE (test code = 7576290141) -4 -3.0-3.0 HCO3 CHRIS (test code = 8258995569) 24 24-28 %O2HB (test code = 3163021157) 40 % 94.0-99.0 L NA (test code = 7436620730) 138 mmol/L 135-145 K+ (test code = 8832680738) 4 mmol/L 3.5-5.0 AC CA IONZ (test code = 1683016977) 4.9 mg/dL 4.50-5.30 GLUCOSE (test code = 7533402568) 191 mg/dL 70-110 H AC Hematocrit (test code = 7745089061) 26 40-54 L THB (test code = 4226001274) 8.8 g/dL 12.0-16.0 L AC TCO2 CHRIS (test code = 1404967143) 25 mmol/L 24-29 Lab Interpretation (test cod e = 64188-9) Abnormal [facility] Mzjmgc5401-93-31 13:20:40* Test Item Value Reference Range Interpretation Comme nts PH (test code = 1621162213) 7.27 7.32-7.42 L PCO2 CHRIS (test code = 4053794481) 52 41-51 H PO2 CHRIS (test code = 0203210078) 27 25-40 AC VBE (test code = 8453591583) -4 -3.0-3.0 HCO3 CHRIS (test code = 5332800015) 24 24-28 %O2HB (test code = 1634423740) 40 % 94.0-99.0 L NA (test code = 7817531504) 138 mmol/L 135-145 K+ (test code = 2626375588) 4 mmol/L 3.5-5.0 AC CA IONZ (test code = 3283496412) 4.9 mg/dL 4.50-5.30 GLUCOSE (test code = 4224832907) 191 mg/dL 70-110 H AC Hematocrit (test code = 8710988301) 26 40-54 L THB (test code = 5281754320) 8.8 g/dL 12.0-16.0 L AC TCO2 CHRIS (test code = 9196866570) 25 mmol/L 24-29 Lab Interpretation (test cod e = 13756-9) Abnormal [facility] Rcsls9845-76-47 00:02:39Charley Varela MD ? ? 09/29/2024 ?7:06 PM Nerve Block Procedure: Other Peripheral Nerve Patient Location: PACULaterality: RightSurgical Anesthesia: Post Op Pain: Start Time: 09/29/2024 4:00 PMPost OpPain Management requested by surgeon per surgical: OR Posting and Progress NoteAnesthesiologist: Charley Varela MDPerformed by: anesthesiologistPreanesthetic timeout completed prior to procedure: patient identified,IV checked, site marked, risks and benefits discussed, surgical consent, monitors and equipment checked, pre-op evaluation, timeout performedInformed consent obtained patient wishes to proceed: yesPatient Position: supineSterile Prep/Drape: YesMonitoring: continuous pulse ox, blood pressure and ECGInjection Technique: single-shotNeedle Type: OtherNeedle Gauge: 21 GNeedle Length: 4.0Number of Attempts: 1Technique: Ultrasound guided, Negative aspiration and Intermittent aspiration during injectionEvents: Local anesthetic solution visualized around nerve, Patient tolerated procedure well, Negative Aspiration, No paresthesia on incremental injection and No symptoms of intraneural or IV injectionAdditional Notes:Right fascia iliaca block administered under US in PACU. Patient tolerated the procedure well.[facility] Packed RBC (in units), 2 Lthmr3876-50-68 22:40:30 * Test Item Value Reference Range Interpretation Comme nts Cross Match Result (test code = 4409) Compatible ISBT Blood Type Code (test code = 094274) 5100 Unit Blood Type (test code = 4410) O Pos Unit Number (test code = 4411) [id number] Blood Expiration Date & Time (test code = 595649) 594489079508 Status Information (test code = 4412) Issued Product Identification (test code = 4413) Red Blood Cells Product Code (test code = 4414) [id number] Performed at [facility] Blood [address] [place], [place] [address]Toll Free: [phone] No. [id number] [facility] Packed RBC (in units), 2 Units 2024-09-29 22:40:30* Test Item Value Reference Range Interpretation Comme nts Cross Match Result (test code = 4409) Compatible ISBT Blood Type Code (test code = 696155) 5100 Unit Blood Type (test code = 4410) O Pos Unit Number (test code = 4411) [id number] Blood Expiration Date & Time (test code = 250711) 522275186989 Status Information (test code = 4412) Issued Product Identification (test code = 4413) Red Blood Cells Product Code (test code = 4414) [id number] Performed at [facility] Blood [place] [address]Toll Free: [phone] No. [id number] [facility] Time OR(non-reportable)2024-09-29 20:41:36 These images do not require a Radiology diagnostic report.[facility] Time OR(non-reportable)2024-09-29 20:41:36These images do not require a Radiology diagnostic report.[facility] (in units), 2 Jqwbp3906-91-73 19:49:48* Test Item Value Reference Range Interpretation Comme nts Cross Match Result (test code = 4409) Compatible ISBT Blood Type Code (test code = 435506) 5100 Unit Blood Type (test code = 4410) O Pos Unit Number (test code = 4411) [id number] Blood Expiration Date & Time (test code = 403258) 214333812949 Status Information (test code = 4412) Issued Product Identification (test code = 4413) Red Blood Cells Product Code (test code = 4414) [id number] Performed at [facility] Blood [address] [place], [place] [address]Toll Free: [phone] No. [id number] [facility]Prep[facility] Packed RBC (in units), 2 Units 2024-09-29 19:49:48* Test Item Value Reference Range Interpretation Comme nts Cross Match Result (test code = 4409) Compatible ISBT Blood Type Code (test code = 451742) 5100 Unit Blood Type (test code = 4410) O Pos Unit Number (test code = 4411) [id number] Blood Expiration Date & Time (test code = 532317) 148831773366 Status Information (test code = 4412) Issued Product Identification (test code = 4413) Red Blood Cells Product Code (test code = 4414) [id number] Performed at [facility] Blood [address] Free: [phone] No. [id number] [facility] CampusIntubation2025-06-21 17:20:00Nikolas García CRNA ? ? 09/29/2024 12:40 PMIntubationDate/Time: 09/29/2024 12:20 PMUrgency: elective Airway not difficult General Information and Staff Patient location during procedure: ORPerformed: resident/DEFENCE INTELLIGENCE ANALYST Performed by: Nikolas García CRNAAuthorized by: Charley Varela MD ? Indications and Patient ConditionIndications for airway management: anesthesiaSpontaneous ventilation: presentSedation level: deepPreoxygenated: yesPatient position: sniffingMILS maintained throughoutMask difficulty assessment: 1 - vent by maskNo planned trial extubation Final Airway DetailsFinal airway type: endotracheal airway Successful airway: ETTCuffed: yes Successful intubation technique: video laryng oscopyEndotracheal tube insertion site: oralBlade: MacintoshBlade size: #3ETT size (mm): 7.0Cormack-Lehane Classification: grade I - full view of glottisPlacement verified by: chest auscultation and capnometry Cuff volume (mL): 8Measured from: lipsETT to lips (cm): 20Number of attempts at approach: 1Ventilation between attempts: noneNumber of other approaches attempted: 0 [facility] CampusTransthoracic echo (TTE) Jpoerzo7356-73-53 20:47:52* Test Item Value Reference Range Interpretation Comme nts Height (test code = 9608254540) 60 in Weight (test code = 3326996149) 162 lbs Systolic BP (test code = 5227481956) 108 mmHg Diastolic BP (test code = 2982362846) 61 mmHg Heart Rate (test code = 1832063947) 61 bpm BSA (test code = 3673896081) 1.71 m2 LVIDD (test code = 6143613450) 3.8 cm Left Ventricular End Diastolic Volume by Teichholz Method (test code = 3233307) 61.1 mL IVS (test code = 3615958536) 0.83 cm Interventricular Septum Diastolic Thickness by 2D (test code = 7124617) 0.83 cm LVPWD (test code = 5352378534) 0.8 cm LV RWT (test code = 5179880961) 0.42 LV mass (test code = 2702986011) 88.15 g LV Mass Index (test code = 3367312626) 51.6 g/m2 PW (test code = 1959793104) 0.8 cm 0.6-1.1 EF(Teich) (test code = 9984205799) 42.2 % LVIDS (test code = 6034376225) 3 cm Left Ventricular End Systolic Volume by Teichholz Method (test code = 8939823) 35.3 mL FS (test code = 9642489156) 20 % EF - 2D (test code = 99204517) 42.2 % LA size (test code = 1238688660) 3.9 cm LVOT diameter (test code = 1085307471) 1.79 cm LVOT area (test code = 9014629677) 2.5 cm2 Ao root diam (test code = 3244846832) 3.4 cm Aortic root (test code = 2346497125) 3.4 cm Ao root annulus (test code = 6056134444) 3.4 cm TR Peak Holland (test code = 1738752408) 279.1 cm/s Triscuspid Valve Regurgitation Peak Gradient (test code = 3860706445) 31.2 mmHg MV Peak E Holland (test code = 4904845740) 78.6 cm/s E wave decelartion time (test code = 7559834616) 0.25 s MV Peak A Holland (test code = 7721183929) 103.8 cm/s E/A ratio (test code = 2440883489) 0.76 ratio LAV(MOD-sp4) (test code = 4192765266) 36.5 mL LA Volume Index (BP) (test code = 2104258706) 24.6 mL/m2 LA volume (BP) (test code = 5704615832) 41.9 mL LAV(MOD-sp2) (test code = 3618563464) 38 mL MV E/e' septal (test code = 1357449837) 7.5 cm/s Tapse (test code = 3556058873) 2.3 cm Aortic valve mean velocity (test code = 5787032995) 102.4 cm/s Ao peak holland (test code = 9117222956) 160.4 cm/s Ao VTI (test code = 7349592476) 31.4 cm Ao max PG (test code = 9170575540) 10.3 mm[Hg] AV peak gradient (test code = 6716436604) 10.3 mmHg AV mean gradient (test code = 8882921996) 4.9 mmHg LVOT stroke volume (test code = 4298809200) 66 cm3 LVOT peak holland (test code = 8903753024) 132.6 cm/s LVOT mn grad (test code = 2269197573) 2.9 mmHg AV LVOT peak gradient (test code = 0832134824) 7 mmHg LVOT peak VTI (test code = 9530043323) 26.1 cm AV area by cont VTI (test code = 6528594486) 2.1 cm2 AV area peak holland (test code = 8350891183) 2.1 cm2 LV V1 mean (test code = 7957463724) 77.3 cm/s AV valve area (test code = 3964702893) 2.1 cm2 Radiology Study observation (narrative) (test code = 82570-2) SAMMI (test code = SAMMI) ?Right?Ventricle: Right ventricle size is normal. Normal systolic function. ?Pulmonic?Valve: Pulmonic valve is normal in structure and function. ?Tricuspid?Valve: Tricuspid valve structure is normal. Mild transvalvular regurgitation. Right ventricular systolic pressure is 35-40 mmHg. ?RA pressure is 0-5 mmHg. ?Aorta: Normal sized aorta. Left VentricleLeft ventricle is normal in size and function. There is mild concentric hypertrophy. Septal Wall motion is normal. No regional wall motion abnormalities. Normal systolic function with a visually estimated EF of 50 - 55%. There is impaired relaxation.Right VentricleRight ventricle size is normal. Normal systolic function.Left AtriumLeft atrium is mildly dilated.Right AtriumRight atrium size is normal.Mitral ValveModerately thickened leaflets. Moderate mitral annular calcification. Mild transvalvular regurgitation.Tricuspi d ValveTricuspid valve structure is normal. Mild transvalvular regurgitation. Right ventricular systolic pressure is 35-40 mmHg. RA pressure is 0-5 mmHg.Aortic ValveModerately calcified cusps. No transvalvular regurgitation.Pulmonic ValvePulmonic valve is normal in structure and function. Trace transvalvular regurgitation.Ascendin g AortaNormal sized aorta.PericardiumThe pericardium is normal. No pericardial effusion.Study DetailsA complete echocardiogram was performed using 2D, color flow Doppler and spectral Doppler. 3 mL of Optison ultrasound enhancing agent used. [facility] CampusTransthoracic echo (TTE) Chykfvh6950-85-17 20:47:52* Test Item Value Reference Range Interpretation Comme nts Height (test code = 9817087143) 60 in Weight (test code = 5886079163) 162 lbs Systolic BP (test code = 5187034354) 108 mmHg Diastolic BP (test code = 4948061645) 61 mmHg Heart Rate (test code = 5891171395) 61 bpm BSA (test code = 2909320379) 1.71 m2 LVIDD (test code = 2128058196) 3.8 cm Left Ventricular End Diastolic Volume by Teichholz Method (test code = 6794683) 61.1 mL IVS (test code = 7916243351) 0.83 cm Interventricular Septum Diastolic Thickness by 2D (test code = 1071444) 0.83 cm LVPWD (test code = 2184251915) 0.8 cm LV RWT (test code = 7610225805) 0.42 LV mass (test code = 2461196079) 88.15 g LV Mass Index (test code = 4594772123) 51.6 g/m2 PW (test code = 7210016179) 0.8 cm 0.6-1.1 EF(Teich) (test code = 1796382681) 42.2 % LVIDS (test code = 2351329102) 3 cm Left Ventricular End Systolic Volume by Teichholz Method (test code = 2873656) 35.3 mL FS (test code = 1823981221) 20 % EF - 2D (test code = 69783586) 42.2 % LA size (test code = 8362467752) 3.9 cm LVOT diameter (test code = 1642617065) 1.79 cm LVOT area (test code = 9228850175) 2.5 cm2 Ao root diam (test code = 2359340897) 3.4 cm Aortic root (test code = 9339019746) 3.4 cm Ao root annulus (test code = 0565276774) 3.4 cm TR Peak Holland (test code = 9843374503) 279.1 cm/s Triscuspid Valve Regurgitation Peak Gradient (test code = 3205209566) 31.2 mmHg MV Peak E Holland (test code = 3647074038) 78.6 cm/s E wave decelartion time (test code = 6121565911) 0.25 s MV Peak A Holland (test code = 1817514179) 103.8 cm/s E/A ratio (test code = 5995155303) 0.76 ratio LAV(MOD-sp4) (test code = 7295997062) 36.5 mL LA Volume Index (BP) (test code = 3465591093) 24.6 mL/m2 LA volume (BP) (test code = 2852208816) 41.9 mL LAV(MOD-sp2) (test code = 6907053289) 38 mL MV E/e' septal (test code = 3261288747) 7.5 cm/s Tapse (test code = 9718279531) 2.3 cm Aortic valve mean velocity (test code = 4018201796) 102.4 cm/s Ao peak holland (test code = 9770922106) 160.4 cm/s Ao VTI (test code = 1430056475) 31.4 cm Ao max PG (test code = 2195257244) 10.3 mm[Hg] AV peak gradient (test code = 4948767734) 10.3 mmHg AV mean gradient (test code = 5834012615) 4.9 mmHg LVOT stroke volume (test code = 4150019656) 66 cm3 LVOT peak holland (test code = 4273593578) 132.6 cm/s LVOT mn grad (test code = 4480263987) 2.9 mmHg AV LVOT peak gradient (test code = 8172787072) 7 mmHg LVOT peak VTI (test code = 8465723084) 26.1 cm AV area by cont VTI (test code = 0483679565) 2.1 cm2 AV area peak holland (test code = 7672421383) 2.1 cm2 LV V1 mean (test code = 8772669357) 77.3 cm/s AV valve area (test code = 3739856261) 2.1 cm2 Radiology Study observation (narrative) (test code = 98784-9) SAMMI (test code = SAMMI) ?Right?Ventricle: Right ventricle size is normal. Normal systolic function. ?Pulmonic?Valve: Pulmonic valve is normal in structure and function. ?Tricuspid?Valve: Tricuspid valve structure is normal. Mild transvalvular regurgitation. Right ventricular systolic pressure is 35-40 mmHg. ?RA pressure is 0-5 mmHg. ?Aorta: Normal sized aorta. Left VentricleLeft ventricle is normal in size and function. There is mild concentric hypertrophy. Septal Wall motion is normal. No regional wall motion abnormalities. Normal systolic function with a visually estimated EF of 50 - 55%. There is impaired relaxation.Right VentricleRight ventricle size is normal. Normal systolic function.Left AtriumLeft atrium is mildly dilated.Right AtriumRight atrium size is normal.Mitral ValveModerately thickened leaflets. Moderate mitral annular calcification. Mild transvalvular regurgitation.Tricuspi d ValveTricuspid valve structure is normal. Mild transvalvular regurgitation. Right ventricular systolic pressure is 35-40 mmHg. RA pressure is 0-5 mmHg.Aortic ValveModerately calcified cusps. No transvalvular regurgitation.Pulmonic ValvePulmonic valve is normal in structure and function. Trace transvalvular regurgitation.Ascendin g AortaNormal sized aorta.PericardiumThe pericardium is normal. No pericardial effusion.Study DetailsA complete echocardiogram was performed using 2D, color flow Doppler and spectral Doppler. 3 mL of Optison ultrasound enhancing agent used. [facility] K[facility] <3 vw [id number] 05:57:12EXAM: XR KNEE <3 VW RIGHT, XR ANKLE <3 VW RIGHT, XR TIBIA FIBULA 2 VW RIGHT HISTORY: 74 yearsold Female with r/o fracture COMPARISON: None FINDINGS: Imaging of the right knee, tibia, fibula, and ankle was obtained. Acutemildly displaced and angulated fifth metatarsal distal diaphyseal fractureis identified, with dorsal apex angulation. Severe joint space narrowing, osteophytosis and subchondral sclerosis arenoted in the knee joint, with medial compartment articular collapse.Moderate degenerative changes are also visualized in the ankle joint. Theankle mortise is congruent. Plantar calcaneal enthesophytes are detected.Diffuse osteopenia is present. Diffuse soft tissue swelling is visua lized.[facility]XR Tibia fibula 2 vw [id number] 05:57:12EXAM: XR KNEE <3 VW RIGHT, XR ANKLE <3 VW RIGHT, XR TIBIA FIBULA 2 VW RIGHT HISTORY: 74 yearsold Female with r/o fracture COMPARISON: None FINDINGS: Imaging of the right knee, tibia, fibula, and ankle was obtained. Acutemildly displaced and angulated fifth metatarsal distal diaphyseal fractureis identified, with dorsal apex angulation. Severe joint space narrowing, osteophytosis and subchondral sclerosis arenoted in the knee joint, with medial compartment articular collapse.Moderate degenerative changes are also visualized in the ankle joint. Theankle mortise is congruent. Plantar calcaneal enthesophytes are detected.Diffuse osteopenia is present. Diffuse soft tissue swelling is visualized.[facility] right 2024-09-28 05:57:12EXAM: XR KNEE <3 VW RIGHT, XR ANKLE <3 VW RIGHT, XR TIBIA FIBULA 2 VW RIGHT HISTORY: 74 yearsold Female with r/o fracture COMPARISON: None FINDINGS: Imaging of the right knee, tibia, fibula, and ankle was obtained. Acutemildly displaced and angulated fifth metatarsal distal diaphyseal fractur eis identified, with dorsal apex angulation. Severe joint space narrowing, osteophytosis and subchondral sclerosis arenoted in the knee joint, with medial compartment articular collapse.Moderate degenerative changes are also visualized in the ankle joint. Theankle mortise is congruent. Plantar calcaneal enthesophytes are detected.Diffuse osteopenia is present. Diffuse soft tissue swelling is visualized.[facility] 2024-09-28 05:57:12EXAM: XR KNEE <3 VW RIGHT, XR ANKLE <3 VW RIGHT, XR TIBIA FIBULA 2 VW RIGHT HISTORY: 74 yearsold Female with r/o fracture COMPARISON: None FINDINGS: Imaging of the right knee, tibia, fibula, and ankle was obtained. Acutemildly displaced and angulated fifth metatarsal distal diaphyseal fractur eis identified, with dorsal apex angulation. Severe joint space narrowing, osteophytosis and subchondral sclerosis arenoted in the knee joint, with medial compartment articular collapse.Moderate degenerative changes are also visualized in the ankle joint. Theankle mortise is congruent. Plantar calcaneal enthesophytes are detected.Diffuse osteopenia is present. Diffuse soft tissue swelling is visualized.[facility] Tib[facility]ula 2 vw [id number] 05:57:12EXAM: XR KNEE <3 VW RIGHT, XR ANKLE <3 VW RIGHT, XR TIBIA FIBULA 2 VW RIGHT HISTORY: 74 yearsold Female with r/o fracture COMPARISON: None FINDINGS: Imaging of the right knee, tibia, fibula, and ankle was obtained. Acutemildly displaced and angulated fifth metatarsal distal diaphyseal fractureis identified, with dorsal apex angulation. Severe joint space narrowing, osteophytosis and subchondral sclerosis arenoted in the knee joint, with medial compartment articular collapse.Moderate degenerative changes are also visualized in the ankle joint. Theankle mortise is congruent. Plantar calcaneal enthesophytes are detected.Diffuse osteopenia is present. Diffuse soft tissue swelling is visualized.[facility] Ankle <3 vw [id number] 05:57:12EXAM: XR KNEE <3 VW RIGHT, XR ANKLE <3 VW RIGHT, XR TIBIA FIBULA 2 VW RIGHT HISTORY: 74 yearsold Female with r/o fracture COMPARISON: None FINDINGS: Imaging of the right knee, tibia, fibula, and ankle was obtained. Acutemildly displaced and angulated fifth metatarsal distal diaphyseal fractureis identified, with dorsal apex angulation. Severe joint space narrowing, osteophytosis and subchondral sclerosis arenoted in the knee joint, with medial compartment articular collapse.Moderate degenerative changes are also visualized in the ankle joint. Theankle mortise is congruent. Plantar calcaneal enthesophytes are detected.Diffuse osteopenia is present. Diffuse soft tissue swelling is visualized.[facility] Hips 2 vw [id number] 05:53:44EXAM: XR PELVIS <3 VW, XR FEMUR 2 VW RIGHT, XR HIPS 2 VW RIGHT HISTORY: 74 years old Female withr/o fracture COMPARISON: None FINDINGS: Imaging of the pelvis, right hip, and right femur was obtained. An acutecomminuted severely displaced intertrochanteric femoral neck fracture with9.1 cm shortening and superolateral migration of the primary distalfracture fragment. Mild bilateral hip and severe right knee joint space narrowing,osteophytosis and subchondral sclerosis are noted. Diffuse osteopenia ispresent.[facility] Femur 2 vw [id number] 05:53:44EXAM: XR PELVIS <3 VW, XR FEMUR 2 VW RIGHT, XR HIPS 2 VW RIGHT HISTORY: 74 years old Female withr/o fracture COMPARISON: None FINDINGS: Imaging of the pelvis, right hip, and right femur was obtained. An acutecomminuted severely displaced intertrochanteric femoral neck fracture with9.1 cm shortening and superolateral migration of the primary distalfracture fragment. Mild bilateral hip and severe right knee joint space narrowing,osteophytosis and subchondral sclerosis are noted. Diffuse osteopenia ispresent.[facility] Pelvis <3 [id number] 05:53:44EXAM: XR PELVIS <3 VW, XR FEMUR 2 VW RIGHT, XR HIPS 2 VW RIGHT HISTORY: 74 years old Female withr/o fracture COMPARISON: None FINDINGS: Imaging of the pelvis, right hip, and right femur was obtained. An acutecomminuted severely displaced intertrochanteric femoral neck fracture with9.1 cm shortening and superolateral migration of the primary distalfracture fragment. Mild bilateral hip and severe right knee joint space narrowing,osteophytosis and subchondral sclerosis are noted. Diffuse osteopenia ispresent.[facility] Hips 2 vw [id number] 05:53:44EXAM: XR PELVIS <3 VW, XR FEMUR 2 VW RIGHT, XR HIPS 2 VW RIGHT HISTORY: 74 years old Female withr/o fracture COMPARISON: None FINDINGS: Imaging of the pelvis, right hip, and right femur was obtained. An acutecomminuted severely displaced intertrochanteric femoral neck fracture with9.1 cm shortening and superolateral migration of the primary distalfracture fragment. Mild bilateral hip and severe right knee joint space narrowing,osteophytosis and subchondral sclerosis are noted. Diffuse osteopenia ispresent.[facility] Fem[facility] 2 vw [id number] 05:53:44EXAM: XR PELVIS <3 VW, XR FEMUR 2 VW RIGHT, XR HIPS 2 VW RIGHT HISTORY: 74 years old Female withr/o fracture COMPARISON: None FINDINGS: Imaging of the pelvis, right hip, and right femur was obtained. An acutecomminuted severely displaced intertrochanteric femoral neck fracture with9.1 cm shortening and superolateral migration of the primary distalfracture fragment. Mild bilateral hip and severe right knee joint space narrowing,osteophytosis and subchondral sclerosis are noted. Diffuse osteopenia ispresent.[facility] Pelvis <3 [id number] 05:53:44 EXAM: XR PELVIS <3 VW, XR FEMUR 2 VW RIGHT, XR HIPS 2 VW RIGHT HISTORY: 74 years old Female withr/o fracture COMPARISON: None FINDINGS: Imaging of the pelvis, right hip, and right femur was obtained. An acutecomminuted severely displaced intertrochanteric femoral neck fracture with9.1 cm shortening and superolateral migration of the primary distalfracture fragment. Mild bilateral hip and severe right knee joint space narrowing,osteophytosis and subchondral sclerosis are noted. Diffuse osteopenia ispresent.[facility] [id number] 01:03:19* Test Item Value Reference Range Interpretation Comme nts LACTIC ACID (test code = 5745096650) 2.07 mmol/L 0.50-2.20 Lab Interpretation (test cod e = 16963-5) Normal [facility] [id number] 01:03:19* Test Item Value Reference Range Interpretation Comme nts LACTIC ACID (test code = 7974497778) 2.07 mmol/L 0.50-2.20 Lab Interpretation (test cod e = 58235-9) Normal [facility] ([facility] Only)2024-09-28 01:02:00* Test Item Value Reference Range Interpretation Comme nts ABO & RH (test code = 20) O Positive [facility] ([facility] Only)2024-09-28 01:02:00* Test Item Value Reference Range Interpretation Comme nts ABO & RH (test code = 20) O Positive [facility] 1 [id number] 00:24:30CHEST ONE VIEW ORDERING PHYSICIAN: ODALYS MAHONEY CLINICAL HISTORY:Pre op ; femoral neck fracture.TECHNIQUE: Single frontal radiograph of the chest was obtained. COMPARISON: None available. FINDINGS: Cardiac silhouette is within normal limits. No focal lung consolidation. Nopneumothorax or pleural effusion. No acute osseous abnormality.[facility] view 2024-09-28 00:24:30CHEST ONE VIEW ORDERING PHYSICIAN: ODALYS MAHONEY CLINICAL HISTORY:Pre op ; femoral neck fracture.TECHNIQUE: Single frontal radiograph of the chest was obtained. COMPARISON: None available. FINDINGS: Cardiac silhouette is within normal limits. No focal lung consolidation. Nopneumothorax or pleural effusion. No acute osseous abnormality.[facility] [id number] 00:00:00* Test Item Value Reference Range Interpretation Comme nts NUCLEATED RBCS (test code = 12314-7) 0.0 /100 WBC'S See_Comment [Automated message] The system which generated this result transmitted reference range: 0.0 /100 WBC'S. The reference range was not used to interpret this result as normal/abnormal. ABSOLUTE EOSINOPHILS (test code = 73415-8) 0.10 K/UL See_Comment [Automated message] The system which generated this result transmitted reference range: 0.00-0.50 K/UL. The reference range was not used to interpret this result as normal/abnormal. ABSOLUTE LYMPHOCYTES (test code = 50904-8) 0.90 K/UL See_Comment L [Automated message] The system which generated this result transmitted reference range: 1.00-4.00 K/UL. The reference range was not used to interpret this result as normal/abnormal. ABSOLUTE MONOCYTES (test code = 00237-8) 0.54 K/UL See_Comment [Automated message] The system which generated this result transmitted reference range: 0.20-1.00 K/UL. The reference range was not used to interpret this result as normal/abnormal. ABSOLUTE NEUTROPHILS (test code = 28801-4) 3.34 K/UL See_Comment [Automated message] The system which generated this result transmitted reference range: 1.50-7.50 K/UL. The reference range was not used to interpret this result as normal/abnormal. BASOPHILS (test code = 10511-5) 0.4 % EOSINOPHILS (test code = 15943-7) 2.0 % HEMATOCRIT (test code = 42253-1) 34.2 % See_Comment [Automated messa ge] The system which generated this result transmitted reference range: 34.0-45.0 %. The reference range was not used to interpret this result as normal/abnormal. HEMOGLOBIN (test code = 718-7) 11.0 G/DL See_Comment L [Automated messa ge] The system which generated this result transmitted reference range: 11.5-15.5 G/DL. The reference range was not used to interpret this result as normal/abnormal. LYMPHOCYTES (test code = 87367-7) 18.3 % MCH (test code = 65906-1) 29.4 PG See_Comment [Automated messa ge] The system which generated this result transmitted reference range: 25.0-33.0 PG. The reference range was not used to interpret this result as normal/abnormal. MCHC (test code = 49217-3) 32.2 G/DL See_Comment [Automated messa ge] The system which generated this result transmitted reference range: 31.0-36.0 G/DL. The reference range was not used to interpret this result as normal/abnormal. MCV (test code = 03385-3) 91.4 fL See_Comment [Automated messa ge] The system which generated this result transmitted reference range: 80.0-99.0 fL. The reference range was not used to interpret this result as normal/abnormal. MONOCYTES (test code = 86801-8) 11.0 % NEUTROPHILS (test code = 03830-4) 68.1 % PLATELET COUNT (test code = 67887-1) 165 K/UL See_Comment [Automated messa ge] The system which generated this result transmitted reference range: 130-400 K/UL. The reference range was not used to interpret this result as normal/abnormal. RBC (test code = 54006-3) 3.74 M/UL See_Comment L [Automated messa ge] The system which generated this result transmitted reference range: 3.80-5.40 M/UL. The reference range was not used to interpret this result as normal/abnormal. RDW (test code = 31456-9) 12.7 % See_Comment [Automated messa ge] The system which generated this result transmitted reference range: 11.5-15.0 %. The reference range was not used to interpret this result as normal/abnormal. WBC (test code = 56849-9) 4.9 K/UL See_Comment [Automated messa ge] The system which generated this result transmitted reference range: 3.5-11.0 K/UL. The reference range was not used to interpret this result as normal/abnormal. CALC LDL CHOL (test code = 18598-5) 104 MG/DL See_Comment H [Automated messa ge] The system which generated this result transmitted reference range: <100 MG/DL. The reference range was not used to interpret this result as normal/abnormal. CHOLESTEROL (test code = 2093-3) 179 MG/DL See_Comment [Automated messa ge] The system which generated this result transmitted reference range: <200 MG/DL. The reference range was not used to interpret this result as normal/abnormal. HDL CHOLESTEROL (test code = 2085-9) 57 MG/DL See_Comment [Automated Mengca[place] ge] The system which generated this result transmitted reference range: >39 MG/DL. The reference range was not used to interpret this result as normal/abnormal. RISK RATIO LDL/HDL (test code = 65771-6) 1.82 RATIO See_Comment [Automated message] The system which generated this result transmitted reference range: <3.22 RATIO. The reference range was not used to interpret this result as normal/abnormal. TRIGLYCERIDES (test code = 2571-8) 85 MG/DL See_Comment [Automated messa ge] The system which generated this result transmitted reference range: <150 MG/DL. The reference range was not used to interpret this result as normal/abnormal. FREE T4 (THYROXINE) (test code = 3024-7) 1.20 NG/DL See_Comment [Automated message] The system which generated this result transmitted reference range: 0.80-1.90 NG/DL. The reference range was not used to interpret this result as normal/abnormal. TSH, THIRD GENERATION (test code = 55298-7) 3.840 UIU/ML See_Comment [Automated message] The system which generated this result transmitted reference range: 0.400-4.100 UIU/ML. The reference range was not used to interpret this result as normal/abnormal. ALBUMIN (test code = 1751-7) 3.7 G/DL See_Comment [Automated messa ge] The system which generated this result transmitted reference range: 3.5-5.2 G/DL. The reference range was not used to interpret this result as normal/abnormal. ALKALINE PHOSPHATASE (test code = 6768-6) 124 U/L See_Comment [Automated message] The system which generated this result transmitted reference range: 40-142 U/L. The reference range was not used to interpret this result as normal/abnormal. BILIRUBIN, TOTAL (test code = 1975-2) 0.4 MG/DL See_Comment [Automated messa ge] The system which generated this result transmitted reference range: <=1.2 MG/DL. The reference range was not used to interpret this result as normal/abnormal. BUN (test code = 3094-0) 11 MG/DL See_Comment [Automated messa ge] The system which generated this result transmitted reference range: 8-23 MG/DL. The reference range was not used to interpret this result as normal/abnormal. CALCIUM (test code = 05353-6) 9.0 MG/DL See_Comment [Automated messa ge] The system which generated this result transmitted reference range: 8.5-10.5 MG/DL. The reference range was not used to interpret this result as normal/abnormal. CALC A/G RATIO (test code = 1759-0) 1.0 RATIO See_Comment [Automated messa ge] The system which generated this result transmitted reference range: 1.0-2.6 RATIO. The reference range was not used to interpret this result as normal/abnormal. CALC BUN/CREAT (test code = 3097-3) 22 RATIO See_Comment [Automated messa ge] The system which generated this result transmitted reference range: 6-28 RATIO. The reference range was not used to interpret this result as normal/abnormal. CALC GLOBULIN (test code = 60587-4) 3.8 G/DL See_Comment H [Automated messa ge] The system which generated this result transmitted reference range: 1.9-3.7 G/DL. The reference range was not used to interpret this result as normal/abnormal. CARBON DIOXIDE (test code = 1963-8) 27 MEQ/L See_Comment [Automated messa ge] The system which generated this result transmitted reference range: 19-31 MEQ/L. The reference range was not used to interpret this result as normal/abnormal. CHLORIDE (test code = 2075-0) 101 MEQ/L See_Comment [Automated messa ge] The system which generated this result transmitted reference range: 95-107 MEQ/L. The reference range was not used to interpret this result as normal/abnormal. CREATININE (test code = 2160-0) 0.51 MG/DL See_Comment L [Automated messa ge] The system which generated this result transmitted reference range: 0.60-1.30 MG/DL. The reference range was not used to interpret this result as normal/abnormal. eGFR (2020 CKD-EPI) (test code = 03970-0) 97 ML/MIN/1.73 See_Comment [Automated message] The system which generated this result transmitted reference range: >60 ML/MIN/1.73. The reference range was not used to interpret this result as normal/abnormal. GLUCOSE (test code = 1558-6) 90 MG/DL See_Comment [Automated messa ge] The system which generated this result transmitted reference range: 70-99 MG/DL. The reference range was not used to interpret this result as normal/abnormal. POTASSIUM (test code = 2823-3) 4.1 MEQ/L See_Comment [Automated messa ge] The system which generated this result transmitted reference range: 3.5-5.4 MEQ/L. The reference range was not used to interpret this result as normal/abnormal. PROTEIN, TOTAL (test code = 2885-2) 7.5 G/DL See_Comment [Automated messa ge] The system which generated this result transmitted reference range: 6.1-8.3 G/DL. The reference range was not used to interpret this result as normal/abnormal. AST (test code = 1920-8) 13 U/L See_Comment [Automated messa ge] The system which generated this result transmitted reference range: 9-40 U/L. The reference range was not used to interpret this result as normal/abnormal. ALT (test code = 1742-6) 6 U/L See_Comment [Automated messa ge] The system which generated this result transmitted reference range: 5-40 U/L. The reference range was not used to interpret this result as normal/abnormal. SODIUM (test code = 2951-2) 138 MEQ/L See_Comment [Automated messa ge] The system which generated this result transmitted reference range: 133-146 MEQ/L. The reference range was not used to interpret this result as normal/abnormal. HEMOGLOBIN A1c (test code = 4548-4) 5.3 % See_Comment [Automated Mengcaoa ge] The system which generated this result transmitted reference range: 4.2-5.6 %. The reference range was not used to interpret this result as normal/abnormal. FOLIC ACID (test code = 2284-8) 17.9 UG/L SEE BELOW UG/L VITAMIN B-12 (test code = 2132-9) 466 PG/ML See_Comment [Automated Meng[place] ge] The system which generated this result transmitted reference range: 200-950 PG/ML. The reference range was not used to interpret this result as normal/abnormal. URIC ACID (test code = 2501-5) 4.1 MG/DL See_Comment [Automated Mengca[place] ge] The system which generated this result transmitted reference range: 2.7-6.1 MG/DL. The reference range was not used to interpret this result as normal/abnormal. TSH + FREE T4 [id number] 00:00:00* Test Item Value Reference Range Interpretation Comme nts FREE T4 (THYROXINE) (test code = 3024-7) 1.37 NG/DL See_Comment [Automated message] The system which generated this result transmitted reference range: 0.80-1.90 NG/DL. The reference range was not used to interpret this result as normal/abnormal. TSH, THIRD GENERATION (test code = 63273-2) 2.550 UIU/ML See_Comment [Automated messa ge] The system which generated this result transmitted reference range: 0.400-4.100 UIU/ML. The reference range was not used to interpret this result as normal/abnormal. CBC W/AUTO [id number] 00:00:00* Test Item Value Reference Range Interpretation Comme nts NUCLEATED RBCS (test code = 09323-6) 0.0 /100 WBC'S See_Comment [Automated messa ge] The system which generated this result transmitted reference range: 0.0 /100 WBC'S. The reference range was not used to interpret this result as normal/abnormal. ABSOLUTE EOSINOPHILS (test code = 61420-0) 0.08 K/UL See_Comment [Automated messa ge] The system which generated this result transmitted reference range: 0.00-0.50 K/UL. The reference range was not used to interpret this result as normal/abnormal. ABSOLUTE LYMPHOCYTES (test code = 85032-3) 0.96 K/UL See_Comment L [Automated messa ge] The system which generated this result transmitted reference range: 1.00-4.00 K/UL. The reference range was not used to interpret this result as normal/abnormal. ABSOLUTE MONOCYTES (test code = 75954-2) 0.57 K/UL See_Comment [Automated messa ge] The system which generated this result transmitted reference range: 0.20-1.00 K/UL. The reference range was not used to interpret this result as normal/abnormal. ABSOLUTE NEUTROPHILS (test code = 66500-7) 3.32 K/UL See_Comment [Automated messa ge] The system which generated this result transmitted reference range: 1.50-7.50 K/UL. The reference range was not used to interpret this result as normal/abnormal. BASOPHILS (test code = 17084-5) 0.2 % EOSINOPHILS (test code = 85612-0) 1.6 % HEMATOCRIT (test code = 87010-2) 33.0 % See_Comment L [Automated messa ge] The system which generated this result transmitted reference range: 34.0-45.0 %. The reference range was not used to interpret this result as normal/abnormal. HEMOGLOBIN (test code = 718-7) 11.0 G/DL See_Comment L [Automated messa ge] The system which generated this result transmitted reference range: 11.5-15.5 G/DL. The reference range was not used to interpret this result as normal/abnormal. LYMPHOCYTES (test code = 59522-6) 19.4 % MCH (test code = 86225-3) 29.1 PG See_Comment [Automated messa ge] The system which generated this result transmitted reference range: 25.0-33.0 PG. The reference range was not used to interpret this result as normal/abnormal. MCHC (test code = 59321-7) 33.3 G/DL See_Comment [Automated messa ge] The system which generated this result transmitted reference range: 31.0-36.0 G/DL. The reference range was not used to interpret this result as normal/abnormal. MCV (test code = 71151-1) 87.3 fL See_Comment [Automated messa ge] The system which generated this result transmitted reference range: 80.0-99.0 fL. The reference range was not used to interpret this result as normal/abnormal. MONOCYTES (test code = 22119-8) 11.5 % NEUTROPHILS (test code = 70168-8) 67.1 % PLATELET COUNT (test code = 53573-5) 248 K/UL See_Comment [Automated messa ge] The system which generated this result transmitted reference range: 130-400 K/UL. The reference range was not used to interpret this result as normal/abnormal. RBC (test code = 99990-7) 3.78 M/UL See_Comment L [Automated messa ge] The system which generated this result transmitted reference range: 3.80-5.40 M/UL. The reference range was not used to interpret this result as normal/abnormal. RDW (test code = 79359-8) 12.7 % See_Comment [Automated messa ge] The system which generated this result transmitted reference range: 11.5-15.0 %. The reference range was not used to interpret this result as normal/abnormal. WBC (test code = 51005-1) 5.0 K/UL See_Comment [Automated messa ge] The system which generated this result transmitted reference range: 3.5-11.0 K/UL. The reference range was not used to interpret this result as normal/abnormal. CBC W/AUTO [id number] 00:00:00* Test Item Value Reference Range Interpretation Comme nts NUCLEATED RBCS (test code = 88366-1) 0.0 /100 WBC'S See_Comment [Automated messa ge] The system which generated this result transmitted reference range: 0.0 /100 WBC'S. The reference range was not used to interpret this result as normal/abnormal. ABSOLUTE EOSINOPHILS (test code = 65045-0) 0.06 K/UL See_Comment [Automated messa ge] The system which generated this result transmitted reference range: 0.00-0.50 K/UL. The reference range was not used to interpret this result as normal/abnormal. ABSOLUTE LYMPHOCYTES (test code = 16608-4) 0.76 K/UL See_Comment L [Automated messa ge] The system which generated this result transmitted reference range: 1.00-4.00 K/UL. The reference range was not used to interpret this result as normal/abnormal. ABSOLUTE MONOCYTES (test code = 72148-5) 0.72 K/UL See_Comment [Automated messa ge] The system which generated this result transmitted reference range: 0.20-1.00 K/UL. The reference range was not used to interpret this result as normal/abnormal. ABSOLUTE NEUTROPHILS (test code = 17471-9) 5.48 K/UL See_Comment [Automated messa ge] The system which generated this result transmitted reference range: 1.50-7.50 K/UL. The reference range was not used to interpret this result as normal/abnormal. BASOPHILS (test code = 83624-4) 0.1 % EOSINOPHILS (test code = 43447-0) 0.9 % HEMATOCRIT (test code = 57726-1) 34.5 % See_Comment [Automated messa ge] The system which generated this result transmitted reference range: 34.0-45.0 %. The reference range was not used to interpret this result as normal/abnormal. HEMOGLOBIN (test code = 718-7) 11.2 G/DL See_Comment L [Automated messa ge] The system which generated this result transmitted reference range: 11.5-15.5 G/DL. The reference range was not used to interpret this result as normal/abnormal. LYMPHOCYTES (test code = 88602-2) 10.8 % MCH (test code = 97711-0) 27.7 PG See_Comment [Automated messa ge] The system which generated this result transmitted reference range: 25.0-33.0 PG. The reference range was not used to interpret this result as normal/abnormal. MCHC (test code = 63307-9) 32.5 G/DL See_Comment [Automated messa ge] The system which generated this result transmitted reference range: 31.0-36.0 G/DL. The reference range was not used to interpret this result as normal/abnormal. MCV (test code = 28762-4) 85.4 fL See_Comment [Automated messa ge] The system which generated this result transmitted reference range: 80.0-99.0 fL. The reference range was not used to interpret this result as normal/abnormal. MONOCYTES (test code = 35340-9) 10.2 % NEUTROPHILS (test code = 82638-6) 77.9 % PLATELET COUNT (test code = 46702-0) 279 K/UL See_Comment [Automated messa ge] The system which generated this result transmitted reference range: 130-400 K/UL. The reference range was not used to interpret this result as normal/abnormal. RBC (test code = 71922-8) 4.04 M/UL See_Comment [Automated messa ge] The system which generated this result transmitted reference range: 3.80-5.40 M/UL. The reference range was not used to interpret this result as normal/abnormal. RDW (test code = 83370-7) 12.9 % See_Comment [Automated messa ge] The system which generated this result transmitted reference range: 11.5-15.0 %. The reference range was not used to interpret this result as normal/abnormal. WBC (test code = 06807-5) 7.0 K/UL See_Comment [Automated messa ge] The system which generated this result transmitted reference range: 3.5-11.0 K/UL. The reference range was not used to interpret this result as normal/abnormal. CBC W/AUTO [id number] 00:00:00* Test Item Value Reference Range Interpretation Comme nts NUCLEATED RBCS (test code = 31244-8) 0.0 /100 WBC'S See_Comment [Automated messa ge] The system which generated this result transmitted reference range: 0.0 /100 WBC'S. The reference range was not used to interpret this result as normal/abnormal. ABSOLUTE EOSINOPHILS (test code = 42160-2) 0.11 K/UL See_Comment [Automated messa ge] The system which generated this result transmitted reference range: 0.00-0.50 K/UL. The reference range was not used to interpret this result as normal/abnormal. ABSOLUTE LYMPHOCYTES (test code = 59891-6) 0.63 K/UL See_Comment L [Automated messa ge] The system which generated this result transmitted reference range: 1.00-4.00 K/UL. The reference range was not used to interpret this result as normal/abnormal. ABSOLUTE MONOCYTES (test code = 05227-3) 0.48 K/UL See_Comment [Automated messa ge] The system which generated this result transmitted reference range: 0.20-1.00 K/UL. The reference range was not used to interpret this result as normal/abnormal. ABSOLUTE NEUTROPHILS (test code = 44222-8) 5.54 K/UL See_Comment [Automated messa ge] The system which generated this result transmitted reference range: 1.50-7.50 K/UL. The reference range was not used to interpret this result as normal/abnormal. BASOPHILS (test code = 25484-2) 0.3 % EOSINOPHILS (test code = 83415-4) 1.6 % HEMATOCRIT (test code = 40342-1) 33.9 % See_Comment L [Automated messa ge] The system which generated this result transmitted reference range: 34.0-45.0 %. The reference range was not used to interpret this result as normal/abnormal. HEMOGLOBIN (test code = 718-7) 10.5 G/DL See_Comment L [Automated messa ge] The system which generated this result transmitted reference range: 11.5-15.5 G/DL. The reference range was not used to interpret this result as normal/abnormal. LYMPHOCYTES (test code = 06180-8) 9.3 % MCH (test code = 13884-0) 27.1 PG See_Comment [Automated messa ge] The system which generated this result transmitted reference range: 25.0-33.0 PG. The reference range was not used to interpret this result as normal/abnormal. MCHC (test code = 55002-7) 31.0 G/DL See_Comment [Automated messa ge] The system which generated this result transmitted reference range: 31.0-36.0 G/DL. The reference range was not used to interpret this result as normal/abnormal. MCV (test code = 32362-3) 87.4 fL See_Comment [Automated messa ge] The system which generated this result transmitted reference range: 80.0-99.0 fL. The reference range was not used to interpret this result as normal/abnormal. MONOCYTES (test code = 19499-3) 7.1 % NEUTROPHILS (test code = 04576-2) 81.4 % PLATELET COUNT (test code = 56905-0) 216 K/UL See_Comment [Automated messa ge] The system which generated this result transmitted reference range: 130-400 K/UL. The reference range was not used to interpret this result as normal/abnormal. RBC (test code = 14629-2) 3.88 M/UL See_Comment [Automated messa ge] The system which generated this result transmitted reference range: 3.80-5.40 M/UL. The reference range was not used to interpret this result as normal/abnormal. RDW (test code = 82876-6) 13.0 % See_Comment [Automated messa ge] The system which generated this result transmitted reference range: 11.5-15.0 %. The reference range was not used to interpret this result as normal/abnormal. WBC (test code = 78487-9) 6.8 K/UL See_Comment [Automated messa ge] The system which generated this result transmitted reference range: 3.5-11.0 K/UL. The reference range was not used to interpret this result as normal/abnormal. 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 [facility] 2024-10-19 12:10:25 Associated Order(s): CONSULT ADULT PHYSICAL THERAPY Images from the original note were not included. Patient agreeable to working with physical therapy. Patient semireclining in bed and Heels offloaded? No, Daughter present, SCDs donned and engaged, and other family members and visitors present. Recommend nursing staff utilize marc lift, total A to safely assist patient with mobility out of the bed or chair. PHYSICAL THERAPY EVALUATION Consult received, chart reviewed and evaluation complete this date. Patient is referred to PT for evaluation and treatment. Patient is a 74 year old female who presents to hospital for Fever in adult [R50.9] Septic shock [A41.9, R65.21] S/P I&D of right hip, Hx of Right FEMUR IMN S/P FALL. Discharge Recommendations: Therapy Needs and Potential: Patient would benefit from continued physical therapy services to address: decline in bed mobility decline in transfers decline in gait and/or balance decline in stair/step negotiation decline w/c mobility decreased strength decreased range of motion decreased endurance decreased coordination decreased motor planning integument compromise Patient demonstrates good potential to improve and meet therapy goals with further physical therapy services. Patient appears motivated to improve their functional mobility and return to their previous level of function. Patient exhibits limited activity tolerance. Challenges to Home Transition: increased risk of falls decreased caregiver availability decreased safety awareness environmental barriers Equipment recommendations: mechanical lift Current Functional Status and/or Treatment: AM-PAC 6 Clicks (Raw Score 0=Dependent, 24=Independent; Low function Raw Score 0= Dependent, 32=Independent): Raw Score - Basic Mobility : 6 T-Scale Score - Basic Mobility : 16.59 Bed Mobility: Rolling: Total Assistance Supine-sit: Total Assistance Scooting to edge of bed: Total Assistance Sitting balance Fair Repositioned patient to head of bed: Total Assistance Cued Pt with sequencing of activity/task to be performed and proper hand placement Dizziness No Transfers: unable to tolerate due to weakness and pt is NWB on RLE; pt will benefit from using marc lift transfer Dizziness nt Ambulation: not appropriate due to pt NWB on RLE Dizziness nt Therapeutic exercise: patient educated in Compensatory techniques/adaptive strategies, Deep breathing, Fall prevention, General strengthening, Gross motor coordination of LEs, Joint protection, Positioning, Relaxation/breathing techniques, Safety awareness, and WB restrictions., instructed patient in the following: ankle pumps, quad sets, glut sets, adductor sets, heel slides, short arc quads, patient/caregiver instructed to perform HEP 2 times per day, 10 repetitions., and patient/caregiver verbalizes understanding of instructions. Pt seen for PROM ex on RLE and PROM - AAROM ex on LLE - all possible planes x 10 in supine and while seated at EOB. Pt worked on sitting balance while seated at EOB. After session, patient seated edge of bed, Daughter present and Visitor present. Call button provided. Lunch tray/table set up in front of patient. Pt's nurse made aware of pt's position at end of session. PLAN OF CARE: While in the hospital, PT will follow patient at least 5 times per week,once or twice a day, per patient's tolerance and needs. See below for complete details. Admit Date: 10/15/2024 Hospital Diagnosis:Fever in adult [R50.9] Septic shock [A41.9, R65.21] PT Diagnosis: Difficulty walking, Weakness, Pain, Abnormality of gait and balance, Integument compromise, Non-healing wound, Spasticity, and Joint stiffness Weight Bearing Precaution: NWB General Precautions: PPE used:Gloves, General, Fall, Lines/Tubes,Thomas catheter, IV SCDs Bracing/Cast present or required:N/A PMH: Past Medical History: Diagnosis Date Anemia, unspecified Displaced fracture of fifth metatarsal bone of right foot with routine healing Heart failure, unspecified Hypo-osmolality and hyponatremia Hypocalcemia Hypokalemia Hypomagnesemia Hypotension, unspecified Hypothyroid Muscle weakness (generalized) Myocardial infarction type 2 Obesity, unspecified Paroxysmal atrial fibrillation Polyosteoarthritis Rhabdomyolysis Unspecified fall, sequela Vitamin D deficiency PSH: Past Surgical History: Procedure Laterality Date FEMUR INTRAMEDULLARY NAILING Right 09/29/2024 Surgeon: Chaka José MD; Location: [facility] [facility]: lives with grandson, SSH DME: Rolling Walker Prior level of Mobility: requires assistance with transfers Suspected ischemic or hemorraghic stroke:No Subjective: "I feel so much better." Pt agreeable to PT, family present and were encouraging pt Patient/Family Goals: "For her to get stronger and better." Patient/Family verbalizes understanding of condition: Yes PAIN: denies pain before and after session COMMUNICATION Primary Language: Tunisian Able to Verbalize needs: Yes Vision:glasses Hearing:good; no issues reported ORIENTATION/COGNITION: Oriented to: person, place, date/time, and situation Awake: Yes Alert: Yes Dizzy: No Follows Commands: Yes 1-Step Yes Multi-Step Yes Inconsistent: No NEUROLOGICAL Light Touch: WFL bilateral LE Heel to wolfe: WFL Tone: WFL BALANCE: Sitting: Static: Fair+ Dynamic: Fair Standing: Static: NT Dynamic: NT RANGE OF MOTION: deficit: LOM bilateral LE STRENGTH: 2+/5 (P+), bilateral LE ENDURANCE: Fair, Room air SKIN INTEGRITY: not intact, PROBLEM LIST: Decline in bed mobility, Decline in gait, Decline in transfers, Difficulty with stairs, Decreased strength, Decreased endurance, Decreased balance, decline in wheel chair mobiliity, ROM deficits, Weight bearing restrictions, Safety awareness deficits, Decreased Coordination, Decreased Motor Planning, Integument compromise, and Non-healing wound ASSESSMENT: Patient is a 74 year old female seen secondary to the above listed diagnosis. Patient would benefit from continued PT to address the above listed deficits to maximize independence and safety with functional mobility. Patient presents with weakness, decline in bed mobility, transfers, standing and walking. Patient requires physical assistance due to deficits. Patient is currently unable to care for self if patient is to be discharged home. Patient has comorbidities that can affect prognosis and medical related quality of life. Patient would benefit from continued PT to address the above listed deficits to maximize independence and safety with functional mobility. Patient would benefit from comprehensive multi disciplinary post acute therapy services prior to returning home to improve independence and decrease burden of care on caregivers/family. Patient requires continuing therapeutic intervention at intensive level to significantly improve functional mobility and return to or as close to patient's PLOF. With pt's motivation and active participation, pt can reasonably make measurable improvement in functional mobility. Rehabilitation Potential: guarded Goals: The following goals are to maximize independence and safety with functional mobility to eventually return to prior living situation and prior functional status. 1. Rolling: Moderate Assistance Supine-sit: Moderate Assistance Scooting in supine: Maximum Assistance Scooting to edge of bed: Maximum Assistance Sitting balance Fair+ Repositioned patient to head of bed: Maximum Assistance 2. Initiate transfers bed <> recliner/W/C using marc lift 3. Pt to tolerate sitting EOB x 30 mins with F+ sitting balance 4. Pt to tolerate OOB x 1-2 hrs Treatment Plan: Therapeutic exercise, Transfer training, Balance training, Bed mobility training, Equipment needs assessment, Safety education, patient/caregiver education, Wheelchair mobility training, Pain management, and Neuromuscular Re-Education PATIENT EDUCATION: Patient and Family member provided with preferred teaching of verbal information and demonstration on role of PT, plan of care. Shows readiness to learn. Verbal instruction and Demonstration teaching provided. Individual is able to read and verbalizes understanding of teaching provided and needs reinforcement of teaching. Total Time Tx Codes in Minutes: 25 min Total Treatment Time in Minutes: 35 min Aracelis Smart PT Licensed Physical Therapist License #[id number] A physical therapy evaluation of moderate complexity was completed based on meeting the criteria below: A history of present problem with at least 1-2 personal factors (includes environmental factors) and/or comorbidities that impact the plan of care An examination of body systems using standardized tests and measures in addressing at least 3 or more elements from any of the following: body structures and functions, activity limitations and/or participation restrictions An evolving clinical presentation with changing characteristics [facility] 2024-10-17 18:56:51 Reason for consult: fever Rick Escudero is a 74 year old female :1950 Adm:10/15/2024 5:18 PM day 2 Allergy:Patient has no known allergies. HPI: 74-year-old female resident of a group home facility with PMH stated below was brought to the emergency department due to fever. Pt had 100.8 at ER with hypotension. The patient was recently hospitalized and discharged on 10/08/2024 following a mechanical fall that resulted in a closed right intertrochanteric femur fracture s/p right femur intramedullary nailing (IMN) 09/29. Pt does not remember when her right hip incision started bleeding. She denied any fever or chill today. Denied NVD or abdominal pain. Report good appetite. WBC WNL . Hemoglobin 7.3. Pt is currently on vasopressor Review of Hx/Meds: PMH: Past Medical History: Diagnosis Date Anemia, unspecified Displaced fracture of fifth metatarsal bone of right foot with routine healing Heart failure, unspecified Hypo-osmolality and hyponatremia Hypocalcemia Hypokalemia Hypomagnesemia Hypotension, unspecified Hypothyroid Muscle weakness (generalized) Myocardial infarction type 2 Obesity, unspecified Paroxysmal atrial fibrillation Polyosteoarthritis Rhabdomyolysis Unspecified fall, sequela Vitamin D deficiency PSH: has a past surgical history that includes femur intramedullary nailing (Right, 09/29/2024). Social hx: denied smoking or drinking. Family hx: non contributory Current Scheduled Medications Current IV Current Facility-Administered Medications: [START ON 10/18/2024] calcium carbonate (OSCAL-500) tablet 500 mg, 500 mg, Oral, BID MEALS, Olya Hammer DO midodrine (PROAMATINE) tablet 2.5 mg, 2.5 mg, Oral, TID, Olya Hammer DO acetaminophen (TYLENOL) tablet 650 mg, 650 mg, Oral, Q6HPRN, Linda Allen MD, 650 mg at 10/17/24 1400 atorvastatin (LIPITOR) tablet 10 mg, 10 mg, Oral, QHS, Linda Allen MD, 10 mg at 10/16/24 2042 ceFEPIme (MAXIPIME) 1,000 mg in NaCl 0.9% (NS) 100 mL MINI-BAG, 1,000 mg, IV Piggyback, Q8H ABX, Linda Allen MD, Stopped at 10/17/24 1620 ferrous sulfate tablet 325 mg, 325 mg, Oral, DAILY, Linda Allen MD, 325 mg at 10/17/24 0732 gabapentin (NEURONTIN) capsule 300 mg, 300 mg, Oral, TID, Linda Allen MD, 300 mg at 10/17/24 1401 ipratropium-albuteroL (DUONEB) 0.5 mg-3 mg(2.5 mg base)/3 mL nebulizer solution 3 mL, 3 mL, Inhalation, QIDPRN, Linda Allen MD levothyroxine (SYNTHROID) tablet 25 mcg, 25 mcg, Oral, QAM-0600, Linda Allen MD, 25 mcg at 10/17/24 0612 methocarbamoL (ROBAXIN) tablet 500 mg, 500 mg, Oral, TID, Linda Allen MD, 500 mg at 10/17/24 1400 NORepinephrine (LEVOPHED) 4 mg/250 mL in 0.9% NaCl infusion, 0.05-1.5 mcg/kg/min, IV Infusion, TITRATE, Linda Allen MD, Last Rate: 9.62 mL/hr at 10/17/24 1517, 0.03 mcg/kg/min at 10/17/24 1517 polyethylene glycol 3350 powder 17 g, 17 g, Oral, DAILY, Linda Allen MD, 17 g at 10/16/24 0823 traZODone (DESYREL) tablet 50 mg, 50 mg, Oral, QHSPRN, Linda Allen MD vancomycin (VANCOCIN) 1,250 mg in NaCl 0.9% (NS) 250 mL V2B IV Piggyback, 15 mg/kg, IV Piggyback, Q24H ABX, Linda Allen MD, Stopped at 10/16/24 2229 vancomycin placeholder: dosing by pharmacy, , Intravenous, RX Placeholder, Linda Allen MD Objective: Vitals: Vitals: 10/17/24 1633 10/17/24 1732 10/17/24 1801 10/17/24 1831 BP: 111/65 125/59 (!) 122/95 (!) 142/121 Pulse: 61 64 Resp: 22 19 22 Temp: TempSrc: SpO2: 91% 95% Weight: Height: Physical Exam: General: NAD, Alert, lying in bed comfortable, cogent speech. HEENT: anicteric, oral mucosa dry Neck: supple, no JVD, no bruits. Chest: CTA B/L, no W/R/C. Heart: RRR, S1/S2, no M/G/R Abdominal: BS normoactive, soft, ND, NT. Skin/Extremities: right surgical hip incision with moderate red drainage to dressing Neurological: CN II-XII grossly intact, no focal deficits. Labs: BMP:BMP NA (mmol/L) Date Value 10/17/2024 135 10/16/2024 135 10/15/2024 133 (L) 10/08/2024 135 10/07/2024 131 (L) K (mmol/L) Date Value 10/17/2024 3.0 (L) 10/16/2024 3.6 10/15/2024 3.7 10/08/2024 4.0 10/07/2024 4.5 CALCIUM (mg/dL) Date Value 10/17/2024 7.5 (L) 10/16/2024 6.9 (L) 10/15/2024 7.0 (L) 10/08/2024 7.7 (L) 10/07/2024 7.6 (L) CL (mmol/L) Date Value 10/17/2024 106 10/16/2024 106 10/15/2024 103 10/08/2024 101 10/07/2024 100 BUN (mg/dL) Date Value 10/17/2024 18 10/16/2024 22 10/15/2024 26 (H) 10/08/2024 23 10/07/2024 25 (H) CREATININE (mg/dL) Date Value 10/17/2024 0.63 10/16/2024 0.68 10/15/2024 0.70 10/08/2024 0.75 10/07/2024 0.79 GLUCOSE (mg/dL) Date Value 10/17/2024 97 10/16/2024 101 10/15/2024 86 10/08/2024 83 10/07/2024 90 CO2 TOTAL (mmol/L) Date Value 10/17/2024 24 10/16/2024 26 10/15/2024 24 10/08/2024 30 10/07/2024 28 LFT: Hepatic Function Panel ALBUMIN (g/dL) Date Value 10/15/2024 2.7 (L) T PROTEIN (g/dL) Date Value 10/15/2024 5.8 (L) TOTAL BILI (mg/dL) Date Value 10/15/2024 0.8 BILI UNCON (mg/dL) Date Value 09/28/2024 0.5 BILI CONJ (mg/dL) Date Value 09/28/2024 0.0 ALTv (U/L) Date Value 10/15/2024 17 AST(SGOT) (U/L) Date Value 10/15/2024 33 ALK PHOS (U/L) Date Value 10/15/2024 221 (H) CBC:CBC WBC (10*3/?L) Date Value 10/17/2024 5.85 RBC (10*6/?L) Date Value 10/17/2024 2.57 (L) PLT (10*3/?L) Date Value 10/17/2024 217 HGB (g/dL) Date Value 10/17/2024 7.3 (L) HCT (%) Date Value 10/17/2024 23.7 (L) Troponin: Recent Labs 10/16/24 1039 TROPNI 0.056* I have reviewed all relevant labs Imaging: XR CHEST 1 VW Result Date: 10/16/2024 EXAM: XR CHEST 1 VW 10/15/2024 5:29 PM HISTORY: 74 years old Female with fever TECHNIQUE: Single AP view of the chest. COMPARISON: Chest x-ray 09/27/2024 FINDINGS / IMPRESSION: Lines/tubes and devices: None. Lungs and pleura: The lungs are adequately expanded. Mildly increased interstitial opacities in the right midlung are noted which may represent atelectasis and/or infection. Blunting of bilateral costophrenic angles may represent trace bilateral pleural effusion. No pneumothorax is seen. Cardiomediastinal: The cardiomediastinal silhouette is normal accounting for technique. Musculoskeletal: No acute osseous abnormality. Right chest wall surgical clips are noted. Preliminary Report Dictated by Resident: Xi Franco I, Chaka Pineda MD., have reviewed this study and agree with the above report. XR Chest 1 vw Result Date: 10/16/2024 EXAM: XR CHEST 1 VW COMPARISON: Same day CT chest HISTORY: central line insertion FINDINGS: The left-sided central venous catheter tip projects over the proximal SVC. The lung volumes are unchanged. No focal consolidation, pleural effusion or pneumothorax. The cardiac silhouette is unchanged. Calcified thoracic aorta. Left-sided subacute rib fractures are better characterized on the same day CT thorax examination. The left sided central venous catheter tip projects over the proximal SVC. Stable chest. No new acute process. Preliminary Report Dictated by Resident: Loulou Navarro MD., have reviewed this study and agree with the above report. XR Femur 2 vw right Result Date: 10/16/2024 EXAM: XR FEMUR 2 VW RIGHT HISTORY: 74 years old Female with pain COMPARISON: X-ray right femur 09/27/2024, operative radiographs 09/29/2024 FINDINGS: Imaging of the right femur demonstrates intramedullary nail fixation of right intertrochanteric femoral neck fracture in near anatomic alignment. Fracture fragments are in similar position. The joint spaces are maintained. Soft tissue swelling over the right hip and lower extremity Intramedullary nail fixation of right femur fracture in near anatomic alignment without evidence of acute hardware complication. Soft tissue swelling over the right hip and lower extremity. Preliminary Report Dictated by Resident: Xi Franco I, Rica Lowery MD., have reviewed this study and agree with the above report. CT Chest pulmonary angiogram Result Date: 10/15/2024 CT SCAN OF THE CHEST WITH CONTRAST 10/15/2024 10:05 PM TECHNIQUE: Multidetector helical CT scan of the chest was performed following the intravenous administration of contrast. Coronal and sagittal reformats as well axial MIPs imaging were acquired. CLINICAL INFORMATION: Pulmonary embolism (PE) suspected, high prob COMPARISON: Correlation to chest radiograph dated 10/15/2024. FINDINGS: CARDIOVASCULAR: The enhancement of the pulmonary artery is adequate. No pulmonary emboli to the level of subsegmental arteries. Pulmonary trunk is mildly enlarged. The thoracic aorta is normal in caliber. No pericardial effusion. There is scattered moderate coronary artery calcification. LYMPH NODES: No thoracic adenopathy. Prominent left axillary lymph nodes are noted. MEDIASTINUM/ LOWER NECK: No mediastinal mass is seen.. No actionable thyroid nodule is present. BRONCHOPULMONARY/PLEURA: The central airways are patent. The pulmonary parenchyma is normal. No focal opacities. No suspicious nodules. . Right pleural plaque with calcifications. No pneumothorax. UPPER ABDOMEN: Left renal cysts. BONES/ CHEST WALL: Left fourth rib mildly displaced fracture with ongoing healing. Subacute to chronic nondisplaced fractures of the left thyroid and fifth ribs and the right ninth and 10th ribs. No acute pulmonary embolism. Mildly enlarged pulmonary trunk, can be seen with pulmonary hypertension. Subacute mildly displaced left fourth rib fracture. Subacute to chronic nondisplaced fractures of the left thyroid and fifth ribs and the right ninth and 10th ribs. Right pleural plaque with calcification. FL Time OR(non-reportable) Result Date: 09/29/2024 These images do not require a Radiology diagnostic report. Transthoracic echo (TTE) Routine Result Date: 09/28/2024 Right Ventricle: Right ventricle size is normal. Normal systolic function. Pulmonic Valve: Pulmonic valve is normal in structure and function. Tricuspid Valve: Tricuspid valve structure is normal. Mild transvalvular regurgitation. Right ventricular systolic pressure is 35-40 mmHg. RA pressure is 0-5 mmHg. Aorta: Normal sized aorta. XR Knee <3 vw right Result Date: 09/28/2024 EXAM: XR KNEE <3 VW RIGHT, XR ANKLE <3 VW RIGHT, XR TIBIA FIBULA 2 VW RIGHT HISTORY: 74 years old Female with r/o fracture COMPARISON: None FINDINGS: Imaging of the right knee, tibia, fibula, and ankle was obtained. Acute mildly displaced and angulated fifth metatarsal distal diaphyseal fracture is identified, with dorsal apex angulation. Severe joint space narrowing, osteophytosis and subchondral sclerosis are noted in the knee joint, with medial compartment articular collapse. Moderate degenerative changes are also visualized in the ankle joint. The ankle mortise is congruent. Plantar calcaneal enthesophytes are detected. Diffuse osteopenia is present. Diffuse soft tissue swelling is visualized. Acute fifth metatarsal fracture. Polyarticular osteoarthrosis. Preliminary Report Dictated by Resident: Isaiah Schulz MD., have reviewed this study and agree with the above report. XR Tibia fibula 2 vw right Result Date: 09/28/2024 EXAM: XR KNEE <3 VW RIGHT, XR ANKLE <3 VW RIGHT, XR TIBIA FIBULA 2 VW RIGHT HISTORY: 74 years old Female with r/o fracture COMPARISON: None FINDINGS: Imaging of the right knee, tibia, fibula, and ankle was obtained. Acute mildly displaced and angulated fifth metatarsal distal diaphyseal fracture is identified, with dorsal apex angulation. Severe joint space narrowing, osteophytosis and subchondral sclerosis are noted in the knee joint, with medial compartment articular collapse. Moderate degenerative changes are also visualized in the ankle joint. The ankle mortise is congruent. Plantar calcaneal enthesophytes are detected. Diffuse osteopenia is present. Diffuse soft tissue swelling is visualized. Acute fifth metatarsal fracture. Polyarticular osteoarthrosis. Preliminary Report Dictated by Resident: Isaiah Schulz MD., have reviewed this study and agree with the above report. XR Ankle <3 vw right Result Date: 09/28/2024 EXAM: XR KNEE <3 VW RIGHT, XR ANKLE <3 VW RIGHT, XR TIBIA FIBULA 2 VW RIGHT HISTORY: 74 years old Female with r/o fracture COMPARISON: None FINDINGS: Imaging of the right knee, tibia, fibula, and ankle was obtained. Acute mildly displaced and angulated fifth metatarsal distal diaphyseal fracture is identified, with dorsal apex angulation. Severe joint space narrowing, osteophytosis and subchondral sclerosis are noted in the knee joint, with medial compartment articular collapse. Moderate degenerative changes are also visualized in the ankle joint. The ankle mortise is congruent. Plantar calcaneal enthesophytes are detected. Diffuse osteopenia is present. Diffuse soft tissue swelling is visualized. Acute fifth metatarsal fracture. Polyarticular osteoarthrosis. Preliminary Report Dictated by Resident: Isaiah Schulz MD., have reviewed this study and agree with the above report. XR Hips 2 vw right Result Date: 09/28/2024 EXAM: XR PELVIS <3 VW, XR FEMUR 2 VW RIGHT, XR HIPS 2 VW RIGHT HISTORY: 74 years old Female with r/o fracture COMPARISON: None FINDINGS: Imaging of the pelvis, right hip, and right femur was obtained. An acute comminuted severely displaced intertrochanteric femoral neck fracture with 9.1 cm shortening and superolateral migration of the primary distal fracture fragment. Mild bilateral hip and severe right knee joint space narrowing, osteophytosis and subchondral sclerosis are noted. Diffuse osteopenia is present. Acute right intertrochanteric fracture. Preliminary Report Dictated by Resident: Isaiah Schulz MD., have reviewed this study and agree with the above report. XR Femur 2 vw right Result Date: 09/28/2024 EXAM: XR PELVIS <3 VW, XR FEMUR 2 VW RIGHT, XR HIPS 2 VW RIGHT HISTORY: 74 years old Female with r/o fracture COMPARISON: None FINDINGS: Imaging of the pelvis, right hip, and right femur was obtained. An acute comminuted severely displaced intertrochanteric femoral neck fracture with 9.1 cm shortening and superolateral migration of the primary distal fracture fragment. Mild bilateral hip and severe right knee joint space narrowing, osteophytosis and subchondral sclerosis are noted. Diffuse osteopenia is present. Acute right intertrochanteric fracture. Preliminary Report Dictated by Resident: Isaiah Schulz MD., have reviewed this study and agree with the above report. XR Pelvis <3 vw Result Date: 09/28/2024 EXAM: XR PELVIS <3 VW, XR FEMUR 2 VW RIGHT, XR HIPS 2 VW RIGHT HISTORY: 74 years old Female with r/o fracture COMPARISON: None FINDINGS: Imaging of the pelvis, right hip, and right femur was obtained. An acute comminuted severely displaced intertrochanteric femoral neck fracture with 9.1 cm shortening and superolateral migration of the primary distal fracture fragment. Mild bilateral hip and severe right knee joint space narrowing, osteophytosis and subchondral sclerosis are noted. Diffuse osteopenia is present. Acute right intertrochanteric fracture. Preliminary Report Dictated by Resident: Rico Warren I, Isaiah Cordero MD., have reviewed this study and agree with the above report. X-ray chest 1 view Result Date: 09/27/2024 CHEST ONE VIEW ORDERING PHYSICIAN: ODALYS MAHONEY CLINICAL HISTORY:Pre op ; femoral neck fracture. TECHNIQUE: Single frontal radiograph of the chest was obtained. COMPARISON: None available. FINDINGS: Cardiac silhouette is within normal limits. No focal lung consolidation. No pneumothorax or pleural effusion. No acute osseous abnormality. No acute cardiopulmonary abnormality. HS:Y RL: [id number] End of Report. Assessment and plan: 1.SIRS/ Septic shock (improving) secondary to acute blood loss 2.Right hip surgical incision blood drainage 3.anemia 4.moderate protein calorie malnourishment Recommend CT femur Continue vancomycin and cefepime Blood culture negative so far Urine culture unremarkable Low blood pressure and recent fever is possibly due to acute bleeding rom right hip incision site. Recommend blood transfusion due to low hemoglobin Recommend surgery team to reevaluate right hip incision due to heavy bleeding from site Will continue to monitor wbc and fever trend Thank you for the consult Case discussed and in agreement with Dr Purcell Signed: KIMBERLY Stark Cosigned by Aleksandar Purcell MD at 10/23/2024 11:40 AM CDT Associated attestation - Aleksandar Purcell MD - 10/23/2024 11:40 AM CDT I agree with this note. [facility] 2024-10-16 08:21:29 Associated Order(s): CONSULT CARDIOLOGY [facility] Cardiology Consult Note Patient: Rick Escudero Date of : 1950 Date of service: 10/16/2024 Primary Care Physician: Xiomy Le CHIEF COMPLAINT: Chief Complaint Patient presents with Fever HISTORY OF PRESENT ILLNESS: Rick Escudero is a 74 year old female presented to the ER for evaluation for fever. History from patient. Patient seen and examined in the room. Pertinent cardiac related history reviewed from chart The patient came from a group home facility for fever. She had a recent hospital stay after mechanical fall and surgery for femur fracture. Troponin was slightly elevated. During the hospital stay she went into rapid atrial fibrillation which was terminated with intravenous amiodarone and digoxin. History of Present Illness PAST MEDICAL HISTORY Past Medical History: Diagnosis Date Anemia, unspecified Displaced fracture of fifth metatarsal bone of right foot with routine healing Heart failure, unspecified Hypo-osmolality and hyponatremia Hypocalcemia Hypokalemia Hypomagnesemia Hypotension, unspecified Hypothyroid Muscle weakness (generalized) Myocardial infarction type 2 Obesity, unspecified Paroxysmal atrial fibrillation Polyosteoarthritis Rhabdomyolysis Unspecified fall, sequela Vitamin D deficiency Past Surgical History: Procedure Laterality Date FEMUR INTRAMEDULLARY NAILING Right 09/29/2024 Surgeon: Chaka José MD; Location: [facility] [place] Family History Problem Relation Age of Onset RI (myocardial infarction) Mother RI (myocardial infarction) Father SOCIAL HISTORY Social History Socioeconomic History Marital status: Tobacco Use Smoking status: Former Current packs/day: 0.00 Types: Cigarettes Quit date: 2009 Years since quittin.5 Smokeless tobacco: Former Social Drivers of Health Food Insecurity: No Food Insecurity (09/28/2024) NCSS - Food Insecurity Worried About Running Out of Food in the Last Year: No Ran Out of Food in the Last Year: No Transportation Needs: No Transportation Needs (09/28/2024) NCSS - Transportation Lack of Transportation: No Housing Stability: Not At Risk (09/28/2024) NCSS - Housing/Utilities Has Housing: Yes Worried About Losing Housing: No Unable to Get Utilities: No ALLERGIES No Known Allergies MEDICATIONS Current Discharge Medication List STOP taking these medications aspirin 325 mg tablet Comments: Reason for Stopping: methocarbamoL 500 mg tablet Comments: Reason for Stopping: midodrine 2.5 mg tablet Comments: Reason for Stopping: acetaminophen 325 mg tablet Comments: Reason for Stopping: atorvastatin 10 mg tablet Comments: Reason for Stopping: cholecalciferol, vitamin D3, 25 mcg (1,000 unit) tablet Comments: Reason for Stopping: ferrous sulfate (IRON) 325 mg (65 mg iron) tablet Comments: Reason for Stopping: gabapentin 300 mg capsule Comments: Reason for Stopping: polyethylene glycol 3350 17 gram powder Comments: Reason for Stopping: metoprolol succinate XL 25 mg 24 hr tablet Comments: Reason for Stopping: furosemide 40 mg tablet Comments: Reason for Stopping: KLOR-CON M20 20 mEq tablet Comments: Reason for Stopping: levothyroxine 25 mcg tablet Comments: Reason for Stopping: Current Facility-Administered Medications: acetaminophen (TYLENOL) tablet 650 mg, 650 mg, Oral, Q6HPRN, Linda Allen MD atorvastatin (LIPITOR) tablet 10 mg, 10 mg, Oral, QHS, Linda Allen MD calcium gluconate 2 g in NaCl 100 mL (ISO-OSM) RTU IV infusion 2 g, 2 g, IV Infusion, ONCE, Linda Allen MD ceFEPIme (MAXIPIME) 1,000 mg in NaCl 0.9% (NS) 100 mL MINI-BAG, 1,000 mg, IV Piggyback, Q8H ABX, Linda Allen MD, Last Rate: 25 mL/hr at 10/16/24 0420, 1,000 mg at 10/16/24 0420 ferrous sulfate tablet 325 mg, 325 mg, Oral, DAILY, Linda Allen MD gabapentin (NEURONTIN) capsule 300 mg, 300 mg, Oral, TID, Linda Allen MD, 300 mg at 10/16/24 0207 ipratropium-albuteroL (DUONEB) 0.5 mg-3 mg(2.5 mg base)/3 mL nebulizer solution 3 mL, 3 mL, Inhalation, QIDPRN, Linda Allen MD levothyroxine (SYNTHROID) tablet 25 mcg, 25 mcg, Oral, QAM-0600, Linda Allen MD, 25 mcg at 10/16/24 0541 methocarbamoL (ROBAXIN) tablet 500 mg, 500 mg, Oral, TID, Linda Allen MD, 500 mg at 10/16/24 0207 midodrine (PROAMATINE) tablet 5 mg, 5 mg, Oral, TID, Linda Allen MD NORepinephrine (LEVOPHED) 4 mg/250 mL in 0.9% NaCl infusion, 0.05-1.5 mcg/kg/min, IV Infusion, TITRATE, Linda Allen MD polyethylene glycol 3350 powder 17 g, 17 g, Oral, DAILY, Linda Allen MD traZODone (DESYREL) tablet 50 mg, 50 mg, Oral, QHSPRN, Linda Allen MD vancomycin (VANCOCIN) 1,250 mg in NaCl 0.9% (NS) 250 mL V2B IV Piggyback, 15 mg/kg, IV Piggyback, Q24H ABX, Linda Allen MD vancomycin placeholder: dosing by pharmacy, , Intravenous, RX Placeholder, Linda Allen MD enoxaparin (LOVENOX) injection 40 mg, 40 mg, Subcutaneous, DAILY AT 1700, Linda Allen MD REVIEW OF SYSTEMS: Comprehensive 10-system review was conducted and were negative except for what's noted in the HPI. The following systems were reviewed: Constitutional, cardiovascular, respiratory, gastrointestinal, genitourinary, musculoskeletal, neurologic, psychiatric, endocrinological, and hematological. PHYSICAL EXAMINATION: Vitals: 10/16/24 0637 10/16/24 0730 10/16/24 0759 10/16/24 0800 BP: 123/62 99/58 112/63 Pulse: 50 66 Resp: Temp: 36.6 ?C (97.9 ?F) 36.6 ?C (97.9 ?F) TempSrc: SpO2: 100% 97% 100% Weight: Height: General: no apparent distress HEENT: normocephalic atraumatic Neck: supple, no lymphadenopathy, no bruits, no JVD Lungs: clear to auscultation bilaterally. No wheezes or rhonchi. No increased work of breathing. Cardio: Regular rate and rhythm, S1&S2 normal, no murmurs, rubs or gallops Abdomen: soft; non-tender; non-distended; normoactive bowel sounds. : not examined Rectal: not examined Extremities: no clubbing, cyanosis, or edema. Skin: no rashes, no visible lesions. Neuro: no gross focal deficits LABS - Reviewed pertinent labs as below: CBC BMP PT/INR WBC (10*3/?L) Date Value 10/16/2024 6.69 NA (mmol/L) Date Value 10/16/2024 135 No results found for: "PT" PLT (10*3/?L) Date Value 10/16/2024 206 K (mmol/L) Date Value 10/16/2024 3.6 INR (no units) Date Value 10/15/2024 1.1 HGB (g/dL) Date Value 10/16/2024 6.9 (L) BUN (mg/dL) Date Value 10/16/2024 22 HCT (%) Date Value 10/16/2024 22.8 (L) CREATININE (mg/dL) Date Value 10/16/2024 0.68 LIPID PROFILE GLUCOSE (mg/dL) Date Value 10/16/2024 101 CHOL (mg/dL) Date Value 09/29/2024 137 TSH LDL CHOL (mg/dL) Date Value 09/29/2024 74 No results found for: "TSH" CARDIAC ENZYMES HDL (mg/dL) Date Value 09/29/2024 39 (L) CK (U/L) Date Value 09/29/2024 177 TRIG (mg/dL) Date Value 09/29/2024 120 LFTs No results found for: "CKMB" AST(SGOT) (U/L) Date Value 10/15/2024 33 TROPONIN I (ng/mL) Date Value 10/15/2024 0.036 (H) ALTv (U/L) Date Value 10/15/2024 17 No results found for: "BNP" LDL CHOL (mg/dL) Date Value 09/29/2024 74 Recent Labs 10/15/24 1741 TROPNI 0.036* Recent Labs 09/29/24 0236 TRIG 120 LDL CHOL (mg/dL) Date Value 09/29/2024 74 NT-proBNP (pg/mL) Date Value 10/15/2024 9,050 (H) 12/17/2020 1,380 (H) ASSESSMENT/PLAN Principal Problem: Fever in adult Active Problems: Essential hypertension Elevated brain natriuretic peptide (BNP) level Elevated troponin I level PAF (paroxysmal atrial fibrillation) Septic shock Obesity (BMI 30-39.9) Other specified anemias Results Labs - Hemoglobin: 09/28/2020, Mildly reduced at 8.4 - Platelet count: 09/28/2020, 190 - Potassium: 09/28/2020, Mildly reduced to 3.3 - Creatinine: 09/28/2020, 0.5 - Troponin: 09/28/2020, Initial 0.038, Second 0.032 - NT-proBNP: 09/28/2020, Mildly elevated at 894 Imaging - Chest x-ray: 09/27/2024, No evidence of any heart failure pattern Diagnostic Testing - EK09/27/2024, Sinus rhythm, frequent PVCs/PACs noted, no LVH pattern, nonspecific ST-T changes - EK09/27/2024, Presence of A-fib with RVR, narrow QRS complex, nonspecific ST changes Assessment & Plan Principal Problem: Fever in adult Active Problems: Essential hypertension Elevated brain natriuretic peptide (BNP) level Elevated troponin I level PAF (paroxysmal atrial fibrillation) Septic shock Obesity (BMI 30-39.9) Other specified anemias Atrial fibrillation: Paroxysmal this occurred during previous admission as well. Currently back into normal sinus rhythm after intravenous amiodarone and digoxin Watch for now. Due to low blood pressure, she is not a candidate for beta-althea or calcium channel althea. Consider amiodarone if atrial fibrillation recurs. - Continue telemetry monitoring. - Initiation of Eliquis 5 mg twice daily recommended if no noted. Sepsis and septic shock: Currently on Levophed. Continue supportive care. Anemia: Hemoglobin 6.9 - Recommended to keep hemoglobin >8 from a cardiac standpoint. Elevated troponins: - Likely indicative of type II RI in the setting of A-fib with RVR and septic shock - Continue monitoring. Recent Labs 09/27/24 1843 TROPNI 0.038* Elevated NT-proBNP: - Likely in the setting of underlying age, hypertension, A-fib with RVR, and sepsis. - No clinical signs of volume overload noted. NT-proBNP (pg/mL) Date Value 09/27/2024 894 12/17/2020 1,380 (H) Obesity--discussed diet, exercise and weight loss Treatment plan discussed with the patient and hospitalist team. Total Visit Time: 45 mins The total Visit time for today's visit with Rick Escudero encompassed 45 minutes. Time was spent reviewing the chart before, during and after the visit, reviewing laboratory results, taking interval history, performing the documented physical examination, completing and "cleaning up" the electronic medical record as well as addressing any questions and concerns. The time spent for patient care includes: PreCharting (eg, review of tests, notes, etc.), Obtaining and/or reviewing separately obtained history (Care Everywhere or paper records), Counseling and educating the patient/family/caregiver, Ordering medications, tests, or procedures, Ordering referrals and/or communicating with other health child care counselor (when not separately reported), Documenting clinical information in the electronic or other health record, and Independently interpreting results (not separately reported) and/or communicating results to the patient/family/caregiver, and personally reviewing cardiac imaging, ECG, tele monitor. This report was dictated using [employer]or and is subject to voice recognition errors. Please excuse any unusual inaccuracies. My diagnostic impression and treatment plans were discussed at length with the patient. All side effects as well as drug-drug interactions and risks discussed at length. Ample opportunity was offered and encouraged to ask questions during this visit and patient appreciated the answers given by me and verbzalised statisfcation in the answers given. Thank you for allowing us to participate in the care of Rick Escudero. If you have any questions or concerns please feel free to call our office at [phone]. I would be happy to be of further assistance for Rick Escudero wellbeing. Voice recognition software has been used to create portions of this document. An attempt to proofread has been made to minimize errors. Please do not hesitate to call with any questions. Sindhu Stevens MD, FACC, [employer] Department of Cardiovascular Medicine [facility] 2024-10-01 10:49:00 Associated Order(s): CONSULT ADULT PHYSICAL THERAPY Images from the original note were not included. Patient agreeable to working with physical therapy. Patient semireclining in bed, No visitors present. Recommend nursing staff utilize Julia Steady, Total A - NWB status on RLE to safely assist patient with mobility out of the bed or chair. PHYSICAL THERAPY EVALUATION Consult received, chart reviewed and evaluation complete this date. Patient is referred to PT for evaluation and treatment. Patient is a 74 year old female who presents to hospital for Worried well [Z71.1] Right FEMUR IMN S/P FALL. Discharge Recommendations: Therapy Needs and Potential: Patient would benefit from continued physical therapy services to address: decline in bed mobility decline in transfers decline in gait and/or balance decline in stair/step negotiation decline w/c mobility decreased strength decreased range of motion decreased endurance decreased coordination decreased motor planning integument compromise Patient demonstrates good potential to improve and meet therapy goals with further physical therapy services. Patient appears motivated to improve their functional mobility and return to their previous level of function. Patient exhibits limited activity tolerance. Challenges to Home Transition: increased risk of falls decreased caregiver availability decreased safety awareness environmental barriers Equipment recommendations: Patient has or access to necessary equipment Current Functional Status and/or Treatment: AM-PAC 6 Clicks (Raw Score 0=Dependent, 24=Independent; Low function Raw Score 0= Dependent, 32=Independent): Raw Score - Basic Mobility : 6 T-Scale Score - Basic Mobility : 16.59 Bed Mobility: Supine-sit: Total Assistance Scooting to edge of bed: Total Assistance Sitting balance Poor+ Repositioned patient to head of bed: Total Assistance Cued pt on sequencing and hand placement Dizziness No Transfers: unable to tolerate due to increased fatigue, pain and NWB status on RLE Ambulation: unable to tolerate due to increased fatigue, pain and NWB status on RLE Therapeutic exercise: patient educated in Compensatory techniques/adaptive strategies, Deep breathing, Energy conservation, Fall prevention, General strengthening, Positioning, Relaxation/breathing techniques, Safety awareness, and WB restrictions., instructed patient in the following: ankle pumps, quad sets, glut sets, adductor sets, hamstring sets, heel slides, short arc quads, patient/caregiver instructed to perform HEP 2 times per day, 10 repetitions., and patient/caregiver verbalizes understanding of instructions. After session, patient semireclining in bed, No visitors present. Call button provided. PLAN OF CARE: While in the hospital, PT will follow patient at least 5 times per week,once or twice a day, per patient's tolerance and needs. See below for complete details. Admit Date: 09/27/2024 Hospital Diagnosis:Worried well [Z71.1] Right femur IMN - NWB status PT Diagnosis: Difficulty walking, Weakness, Malaise/fatigue, Pain, Abnormality of gait and balance, Integument compromise, and Joint stiffness Weight Bearing Precaution: NWB RLE General Precautions: General, Fall, Lines/Tubes,Thomas catheter, IV SCD, Bracing/Cast present or required:N/A PMH: History reviewed. No pertinent past medical history. PSH: Past Surgical History: Procedure Laterality Date FEMUR INTRAMEDULLARY NAILING Right 09/29/2024 Surgeon: Chaka José MD; Location: [facility] [place] PRIOR LIVING SITUATION: lives with grandson and in a house, [facility] with Ramp access DME: Bed Side Commode, Rolling Walker, Wheel Chair , recliner Prior level of Mobility: house hold ambulation Suspected ischemic or hemorraghic stroke:No Subjective: Pt reports she was walking a week ago with her RW, states that she is unable to stand up at this time d/t increase pain and has WB restrictions. Patient/Family Goals: "To get better and be able to walk again." Patient/Family verbalizes understanding of condition: Yes PAIN: -Pain Description: aching -Pain Location: right hip -Pain rating before treatment: does not rate, After treatment: does not rate -Pain Management: Reports taking pain meds COMMUNICATION Primary Language: Tunisian Able to Verbalize needs: Yes Vision:glasses Hearing:good; no issues reported ORIENTATION/COGNITION: Oriented to: person, place, date/time, and situation Awake: Yes Alert: Yes Dizzy: No Follows Commands: Yes 1-Step Yes Multi-Step Yes Inconsistent: No NEUROLOGICAL Light Touch: within functional limits bilateral LE, Heel to wolfe: WFL Tone: NT BALANCE: Sitting: Static: Poor+ Dynamic: Poor Standing: Static: NT Dynamic: NT RANGE OF MOTION: deficit: LOM on RLE STRENGTH: 2+/5 (P+) RLE, LLE 3-/5 ENDURANCE: Poor+, Room air SKIN INTEGRITY: not intact, Right hip surgical site PROBLEM LIST: Decline in bed mobility, Decline in gait, Decline in transfers, Difficulty with stairs, Decreased strength, Decreased endurance, Decreased balance, decline in wheel chair mobiliity, ROM deficits, Weight bearing restrictions, Pain, altered sensation, Decreased Coordination, Decreased Motor Planning, and Integument compromise ASSESSMENT: Patient is a 74 year old female seen secondary to the above listed diagnosis. Patient would benefit from continued PT to address the above listed deficits to maximize independence and safety with functional mobility. Patient presents with weakness, decline in bed mobility. Pt unable to perform transfers, standing and walking d/t increased fatigue, pain and NWB status on RLE. Patient requires physical assistance due to deficits. Patient is currently unable to care for self if patient is to be discharged home. Patient has comorbidities that can affect prognosis and medical related quality of life. Patient would benefit from continued PT to address the above listed deficits to maximize independence and safety with functional mobility. Patient would benefit from comprehensive multi disciplinary post acute therapy services prior to returning home to improve independence and decrease burden of care on caregivers/family. Patient requires continuing therapeutic intervention at intensive level to significantly improve functional mobility and return to or as close to patient's PLOF. With pt's motivation and active participation, pt can reasonably make measurable improvement in functional mobility. Rehabilitation Potential: guarded Goals: The following goals are to maximize independence and safety with functional mobility to eventually return to prior living situation and prior functional status. tolerate head of bed elevation > 45? for 60 min., tolerate edge of bed sitting for 30 minutes with Supervision., initiate bed mobility, and initiate transfers Treatment Plan: Therapeutic exercise, Transfer training, Balance training, Bed mobility training, Equipment needs assessment, Safety education, patient/caregiver education, Wheelchair mobility training, Pain management, Neuromuscular Re-Education, and Functional Motor Training PATIENT EDUCATION: Patient provided with preferred teaching of verbal information and demonstration on role of PT, plan of care. Shows readiness to learn. Verbal instruction and Demonstration teaching provided. Individual is able to read and verbalizes understanding of teaching provided and needs reinforcement of teaching. Total Time Tx Codes in Minutes: 25 min Total Treatment Time in Minutes: 35 min Aracelis Smart PT Licensed Physical Therapist License #[id number] A physical therapy evaluation of moderate complexity was completed based on meeting the criteria below: A history of present problem with at least 1-2 personal factors (includes environmental factors) and/or comorbidities that impact the plan of care An examination of body systems using standardized tests and measures in addressing at least 3 or more elements from any of the following: body structures and functions, activity limitations and/or participation restrictions An evolving clinical presentation with changing characteristics [facility] [employer] 2024-09-28 08:29:20 Associated Order(s): CONSULT CARDIOLOGY [facility] Cardiology Consult Note Patient: Rick Escudero Date of : 1950 Date of service: 09/28/2024 Primary Care Physician: Xiomy Le CHIEF COMPLAINT: Chief Complaint Patient presents with Knee Pain HISTORY OF PRESENT ILLNESS: Rick Escudero is a 74 year old female presented to the ER for evaluation for fall History from patient. Patient seen and examined in the room. Pertinent cardiac related history reviewed from chart History of Present Illness The patient is a 74-year-old female who presented to the ER for evaluation following a fall resulting in a hip fracture. She was brought to the ER after being unable to move from her recliner for the past 24 to 48 hours. The fall occurred approximately 2 to 3 days ago, leading to a right-sided hip fracture. Cardiology was consulted for cardiac risk stratification. Upon arrival at the ER, she was found to have atrial fibrillation with rapid ventricular response (A-fib with RVR), which converted to sinus rhythm with intravenous Lopressor. She is classified as NYHA class II and reports no history of exertional chest pain. Her cardiac risk factors include advanced age, hypertension, and a history of paroxysmal supraventricular tachycardia (SVT). She receives outpatient care from Dr. Aguilar. PAST MEDICAL HISTORY History reviewed. No pertinent past medical history. History reviewed. No pertinent surgical history. Family History Problem Relation Age of Onset RI (myocardial infarction) Mother RI (myocardial infarction) Father SOCIAL HISTORY Social History Socioeconomic History Marital status: Tobacco Use Smoking status: Former Current packs/day: 0.00 Types: Cigarettes Quit date: 2009 Years since quittin.4 Smokeless tobacco: Former ALLERGIES No Known Allergies MEDICATIONS Current Discharge Medication List STOP taking these medications metoprolol succinate XL 25 mg 24 hr tablet Comments: Reason for Stopping: furosemide 40 mg tablet Comments: Reason for Stopping: KLOR-CON M20 20 mEq tablet Comments: Reason for Stopping: levothyroxine 25 mcg tablet Comments: Reason for Stopping: Current Facility-Administered Medications: acetaminophen (TYLENOL) tablet 650 mg, 650 mg, Oral, Q6HPRN, Gómez Etienne MD cefTRIAXone (ROCEPHIN) 1,000 mg in sterile water for injection 10 mL IV Push, 1,000 mg, Intravenous, Q24H ABX, Sasha Pineda MD enoxaparin (LOVENOX) injection 30 mg, 30 mg, Subcutaneous, Q12H, Gómez Etienne MD, 30 mg at 09/27/242202 gabapentin (NEURONTIN) capsule 300 mg, 300 mg, Oral, TID, Gómez Etienne MD, 300 mg at 09/27/242202 HYDROcodone-acetaminophen (NORCO 5) tablet 1 tablet, 1 tablet, Oral, Q6HPRN, Gómez Etienne MD, 1 tablet at 09/28/24 0217 levothyroxine (SYNTHROID) tablet 50 mcg, 50 mcg, Oral, QAM-0600, Sasha Pineda MD methocarbamoL (ROBAXIN) tablet 500 mg, 500 mg, Oral, TID, Gómez Etienne MD, 500 mg at 09/27/242202 metoprolol (LOPRESSOR) injection 2.5 mg, 2.5 mg, Intravenous, ONCE NOW, Sasha Pineda MD metoprolol succinate XL (TOPROL XL) tablet 25 mg, 25 mg, Oral, DAILY, Sasha Pineda MD morpHINE (4 mg/mL) injection 4 mg, 4 mg, Slow IV Push, Q4HPRN, Gómez Etienne MD NaCl 0.9% (NS) IV infusion 1,000 mL, 1,000 mL, IV Infusion, CONTINUOUS, Gómez Etienne MD, Last Rate: 100 mL/hr at 09/28/24 0445, Rate Verify at 09/28/24 0445 ondansetron (ZOFRAN (PF)) injection 4 mg, 4 mg, Slow IV Push, Q6HPRN, Gómez Etienne MD sodium ferric gluconate (FERRLECIT) 125 mg in NaCl 0.9% (NS) 100 mL IV piggyback, 125 mg, IV Piggyback, DAILY, Sasha Pineda MD REVIEW OF SYSTEMS: Comprehensive 10-system review was conducted and were negative except for what's noted in the HPI. The following systems were reviewed: Constitutional, cardiovascular, respiratory, gastrointestinal, genitourinary, musculoskeletal, neurologic, psychiatric, endocrinological, and hematological. PHYSICAL EXAMINATION: Vitals: 09/28/24 0217 09/28/24 0400 09/28/24 0600 09/28/24 0700 BP: 92/54 98/59 103/63 108/61 Pulse: 81 67 53 61 Resp: 15 17 Temp: 37.2 ?C (99 ?F) 36.8 ?C (98.3 ?F) 36.8 ?C (98.3 ?F) 36.9 ?C (98.5 ?F) TempSrc: Rectal Rectal Rectal SpO2: 95% 98% 99% 99% Weight: 73.5 kg (162 lb 0.6 oz) Height: General: no apparent distress HEENT: normocephalic atraumatic Neck: supple, no lymphadenopathy, no bruits, no JVD Lungs: clear to auscultation bilaterally. No wheezes or rhonchi. No increased work of breathing. Cardio: Regular rate and rhythm, S1&S2 normal, no murmurs, rubs or gallops Abdomen: soft; non-tender; non-distended; normoactive bowel sounds. : not examined Rectal: not examined Extremities: no clubbing, cyanosis, or edema. Skin: no rashes, no visible lesions. Neuro: no gross focal deficits LABS - Reviewed pertinent labs as below: CBC BMP PT/INR WBC (10*3/?L) Date Value 09/27/2024 13.43 (H) NA (mmol/L) Date Value 09/27/2024 134 (L) No results found for: "PT" PLT (10*3/?L) Date Value 09/27/2024 187 K (mmol/L) Date Value 09/27/2024 3.5 INR (no units) Date Value 09/27/2024 1.1 HGB (g/dL) Date Value 09/27/2024 10.2 (L) BUN (mg/dL) Date Value 09/27/2024 46 (H) HCT (%) Date Value 09/27/2024 31.6 (L) CREATININE (mg/dL) Date Value 09/27/2024 0.88 LIPID PROFILE GLUCOSE (mg/dL) Date Value 09/27/2024 98 No results found for: "CHOL" TSH No results found for: "LDL" No results found for: "TSH" CARDIAC ENZYMES No results found for: "HDL" CK (U/L) Date Value 09/27/2024 463 (H) No results found for: "TRIG" LFTs No results found for: "CKMB" AST(SGOT) (U/L) Date Value 09/27/2024 48 (H) TROPONIN I (ng/mL) Date Value 09/27/2024 0.038 (H) ALTv (U/L) Date Value 09/27/2024 35 No results found for: "BNP" No results found for: "LDL" Recent Labs 09/27/24 1843 TROPNI 0.038* There are no current results on file for these tests and/or test for 1 year. No results found for: "LDL" NT-proBNP (pg/mL) Date Value 09/27/2024 894 12/17/2020 1,380 (H) ASSESSMENT/PLAN Principal Problem: Worried well Active Problems: Essential hypertension Elevated brain natriuretic peptide (BNP) level Elevated troponin I level Paroxysmal SVT (supraventricular tachycardia) PAF (paroxysmal atrial fibrillation) Encounter for pre-operative cardiovascular clearance Results Labs - Hemoglobin: 09/28/2020, Mildly reduced at 8.4 - Platelet count: 09/28/2020, 190 - Potassium: 09/28/2020, Mildly reduced to 3.3 - Creatinine: 09/28/2020, 0.5 - Troponin: 09/28/2020, Initial 0.038, Second 0.032 - NT-proBNP: 09/28/2020, Mildly elevated at 894 Imaging - Chest x-ray: 09/27/2024, No evidence of any heart failure pattern Diagnostic Testing - EK09/27/2024, Sinus rhythm, frequent PVCs/PACs noted, no LVH pattern, nonspecific ST-T changes - EK09/27/2024, Presence of A-fib with RVR, narrow QRS complex, nonspecific ST changes Assessment & Plan 1. Cardiac risk stratification: - Cardiac risk factors include advanced age, hypertension, and history of paroxysmal SVT. - No evidence of chest discomfort or shortness of breath elicited. - NYHA class II noted. - Serial troponins x2 recommended. - Telemetry monitoring advised. - Echocardiogram planned to assess for structural abnormalities. - If echocardiogram is within acceptable stable limits, patient may proceed with surgery at moderate risk from a cardiac standpoint. 2. Atrial fibrillation: Paroxysmal and new onset. - Prior history of paroxysmal SVT noted. - Outside records requested from Dr. Aguilar's office. - Continue telemetry monitoring. - Continue current dose of Toprol-XL 25 mg daily. - Recommended to keep potassium >4 and magnesium >2. - Echocardiogram planned. - Initiation of Eliquis 5 mg twice daily recommended post-surgery if no surgical contraindication is noted. 3. Hypertension: - Stable, initially mildly elevated at the time of presentation. - Continue current dose of Toprol-XL 25 mg daily. 4. Anemia: - Recommended to keep hemoglobin >8 from a cardiac standpoint. 5. Elevated troponins: - Likely indicative of type II RI in the setting of A-fib with RVR and fall. - Continue monitoring. Recommend ASA 81 mg daily. - Serial troponins x2 recommended. Recent Labs 09/27/24 1843 TROPNI 0.038* 6. Elevated NT-proBNP: - Likely in the setting of underlying age, hypertension, A-fib with RVR. - No clinical signs of volume overload noted. - NT-proBNP to be repeated in the morning tomorrow. - Gentle perioperative IV fluids recommended. NT-proBNP (pg/mL) Date Value 09/27/2024 894 12/17/2020 1,380 (H) Treatment plan discussed with the patient and hospitalist team. Total Visit Time: 45 mins The total Visit time for today's visit with Rick Escudero encompassed 45 minutes. Time was spent reviewing the chart before, during and after the visit, reviewing laboratory results, taking interval history, performing the documented physical examination, completing and "cleaning up" the electronic medical record as well as addressing any questions and concerns. The time spent for patient care includes: PreCharting (eg, review of tests, notes, etc.), Obtaining and/or reviewing separately obtained history (Care Everywhere or paper records), Counseling and educating the patient/family/caregiver, Ordering medications, tests, or procedures, Ordering referrals and/or communicating with other health child care counselor (when not separately reported), Documenting clinical information in the electronic or other health record, and Independently interpreting results (not separately reported) and/or communicating results to the patient/family/caregiver, and personally reviewing cardiac imaging, ECG, tele monitor. This report was dictated using [employer] and is subject to voice recognition errors. Please excuse any unusual inaccuracies. My diagnostic impression and treatment plans were discussed at length with the patient. All side effects as well as drug-drug interactions and risks discussed at length. Ample opportunity was offered and encouraged to ask questions during this visit and patient appreciated the answers given by me and verbzalised statisfcation in the answers given. Thank you for allowing us to participate in the care of Rick Escudero. If you have any questions or concerns please feel free to call our office at [phone]. I would be happy to be of further assistance for Rick Escudero wellbeing. Voice recognition software has been used to create portions of this document. An attempt to proofread has been made to minimize errors. Please do not hesitate to call with any questions. Jerry Moses MD 09/28/2024 8:29 AM Compliance Vice President, Division of Cardiology [facility] - Health History and Physical Notes Date/Time Note Provider Source 2024-10-16 00:45:34 [facility] ADMIT H&P Date of Service: 10/16/2024 CHIEF COMPLAINT: fever Subjective History of Present Illness A 74-year-old obese female resident of a group home facility with a history of multiple chronic conditions--including heart failure with preserved ejection fraction (HFpEF), hypothyroidism, coronary artery disease (CAD), intermittent atrial fibrillation, high blood pressure, and lymphedema--was brought to the emergency department due to fever. The patient was recently hospitalized and discharged on 10/08/2024 following a mechanical fall that resulted in a closed right intertrochanteric femur fracture. Orthopedic surgery was consulted during that admission and she underwent intramedullary nailing (IMN) of the right femur. She was discharged to the group home facility for rehabilitation. She reports drainage from a surgical wound, which had a wound vac on it previously but she states she did not bring it to the hospital because the battery was low. PAST MEDICAL HISTORY Past Medical History: Diagnosis Date Anemia, unspecified Displaced fracture of fifth metatarsal bone of right foot with routine healing Heart failure, unspecified Hypo-osmolality and hyponatremia Hypocalcemia Hypokalemia Hypomagnesemia Hypotension, unspecified Hypothyroid Muscle weakness (generalized) Myocardial infarction type 2 Obesity, unspecified Paroxysmal atrial fibrillation Polyosteoarthritis Rhabdomyolysis Unspecified fall, sequela Vitamin D deficiency Past Surgical History: Procedure Laterality Date FEMUR INTRAMEDULLARY NAILING Right 09/29/2024 Surgeon: Chaka José MD; Location: [facility] [place] Family History Problem Relation Age of Onset RI (myocardial infarction) Mother RI (myocardial infarction) Father ALLERGIES No Known Allergies MEDICATIONS No current facility-administered medications on file prior to encounter. Current Outpatient Medications on File Prior to Encounter Medication Sig Dispense Refill aspirin 325 mg tablet Take 1 tablet by mouth in the morning and 1 tablet in the evening. Do all this for 30 days. 60 tablet 0 methocarbamoL 500 mg tablet Take 1 tablet by mouth in the morning and 1 tablet at noon and 1 tablet in the evening. Do all this for 30 days. 90 tablet 0 midodrine 2.5 mg tablet Take 1 tablet by mouth in the morning and 1 tablet in the evening. Do all this for 30 days. 60 tablet 0 acetaminophen 325 mg tablet Take 2 tablets by mouth every 6 hours as needed for Pain (scale 1-3) or Temp > 38 C. atorvastatin 10 mg tablet Take 1 tablet by mouth at bedtime for 30 days. 30 tablet 0 cholecalciferol, vitamin D3, 25 mcg (1,000 unit) tablet Take 1 tablet by mouth in the morning for 30 days. 30 tablet 0 ferrous sulfate (IRON) 325 mg (65 mg iron) tablet Take 1 tablet by mouth in the morning for 30 days. gabapentin 300 mg capsule Take 1 capsule by mouth in the morning and 1 capsule at noon and 1 capsule in the evening. Do all this for 30 days. 90 capsule 0 polyethylene glycol 3350 17 gram powder Take 1 Packet by mouth in the morning for 30 days. 30 Packet 0 [Paused] metoprolol succinate XL 25 mg 24 hr tablet Take 1 tablet by mouth daily. 90 tablet 1 furosemide 40 mg tablet daily. KLOR-CON M20 20 mEq tablet daily. levothyroxine 25 mcg tablet every morning. I attest that the foregoing medication list in the medical record is true, accurate and complete to the best of my knowledge. SOCIAL HISTORY Social History Socioeconomic History Marital status: Tobacco Use Smoking status: Former Current packs/day: 0.00 Types: Cigarettes Quit date: 2009 Years since quittin.5 Smokeless tobacco: Former Social Drivers of Health Food Insecurity: No Food Insecurity (09/28/2024) NCSS - Food Insecurity Worried About Running Out of Food in the Last Year: No Ran Out of Food in the Last Year: No Transportation Needs: No Transportation Needs (09/28/2024) NCSS - Transportation Lack of Transportation: No Housing Stability: Not At Risk (09/28/2024) NCSS - Housing/Utilities Has Housing: Yes Worried About Losing Housing: No Unable to Get Utilities: No REVIEW OF SYSTEMS Review of Systems Constitutional: Positive for chills and fever. Negative for activity change, appetite change, diaphoresis, fatigue and unexpected weight change. HENT: Negative. Eyes: Negative. Respiratory: Positive for cough. Negative for apnea, choking, chest tightness, shortness of breath, wheezing and stridor. Breasts: Negative. Cardiovascular: Negative. Gastrointestinal: Negative. Genitourinary: Negative. Musculoskeletal: Negative. Skin: Positive for color change, rash and wound. Negative for pallor. Neurological: Negative. Psychiatric/Behavioral: Negative. Endocrine: Endocrine negative Objective PHYSICAL EXAMINATION Vitals: 10/15/24 2300 10/15/24 2315 10/15/24 2330 10/16/24 0026 BP: 125/58 127/60 118/60 105/50 Pulse: 60 62 61 61 Resp: 22 24 24 21 Temp: 36.9 ?C (98.4 ?F) 36.9 ?C (98.4 ?F) 36.7 ?C (98 ?F) TempSrc: Oral Oral Temporal Artery SpO2: 96% 91% 94% 99% Weight: 85.3 kg (188 lb) Height: Physical Exam Vitals and nursing note reviewed. Constitutional: Appearance: Normal appearance. She is ill-appearing. HENT: Head: Normocephalic and atraumatic. Right Ear: External ear normal. Left Ear: External ear normal. Nose: No congestion or rhinorrhea. Mouth/Throat: Mouth: Mucous membranes are moist. Pharynx: No oropharyngeal exudate or posterior oropharyngeal erythema. Eyes: General: No scleral icterus. Extraocular Movements: Extraocular movements intact. Conjunctiva/sclera: Conjunctivae normal. Pupils: Pupils are equal, round, and reactive to light. Cardiovascular: Rate and Rhythm: Normal rate and regular rhythm. Heart sounds: No murmur heard. No friction rub. No gallop. Pulmonary: Effort: Pulmonary effort is normal. No respiratory distress. Breath sounds: Normal breath sounds. No wheezing or rales. Chest: Chest wall: No tenderness. Abdominal: General: Abdomen is flat. Bowel sounds are normal. There is no distension. Palpations: Abdomen is soft. Tenderness: There is no abdominal tenderness. There is no guarding. Musculoskeletal: General: Normal range of motion. Cervical back: Normal range of motion and neck supple. Right lower leg: Edema present. Left lower leg: Edema present. Skin: General: Skin is warm and dry. Neurological: Mental Status: She is alert. Psychiatric: Mood and Affect: Mood normal. Behavior: Behavior normal. Thought Content: Thought content normal. Judgment: Judgment normal. LABS/IMAGING - reviewed EXAM: XR FEMUR 2 VW RIGHT HISTORY: 74 years old Female with pain COMPARISON: X-ray right femur 09/27/2024, operative radiographs 09/29/2024 FINDINGS: Imaging of the right femur demonstrates intramedullary nail fixation of right intertrochanteric femoral neck fracture in near anatomic alignment. ... Impression Intramedullary nail fixation of right femur fracture in near anatomic alignment without evidence of acute hardware complication. Soft tissue swelling over the right hip and lower extremity. EXAM: XR CHEST 1 VW 10/15/2024 5:29 PM HISTORY: 74 years old Female with fever TECHNIQUE: Single AP view of the chest. COMPARISON: Chest x-ray 09/27/2024 Impression FINDINGS / IMPRESSION: Lines/tubes and devices: None. Lungs and pleura: The lungs are adequately expanded. Mild bilateral perihilar interstitial and airspace opacities may represent viral versus atypical pneumonia. Blunting of bilateral costophrenic angles may represent trace bilateral pleural effusion. No pneumothorax is seen. Cardiomediastinal: The cardiomediastinal silhouette is normal accounting . Assessment & Plan Rick Escudero is a 74 year old female with PMH as listed above, admitted to the hospital with: Septic Shock/Fever: -- On intravenous vancomycin and zosyn -- Blood culture 2. Acute respiratory distress/pneumonia: secondary to underlying pulmonic infection -- Treat underlying condition -- Oxygen supplementation as needed. -- Wean oxygen supplementation to maintain oxygen saturation greater than 90% -- Continue antibiotics -- Anti-tussive and anti-inflammatory as needed -- Breathing treatment as needed Right hip wound wound infection -- On antibiotic -- Orthopedic consult is pending NSTEMI: likely type 2 -- Will continue to trend troponin levels Hypocalcemia -- Will replace Prophylaxis: DVT- enoxaparin Code Status: Full Code Advance Care Planning (Z71.89): Discussed at length with patient; full understanding confirmed. Surrogate decision maker identified: Yes. Expected discharge: Home. Time spent: 19 minutes. INPT: Anticipate greater than 2 midnight stays due to intensive nursing care, frequent monitoring, and ongoing/complex intervention due to the treatment of septic shock secondary to pneumonia and possible cellulitis in the setting of NSTEMi and hypocalcemia. [facility] 2024-09-27 21:13:22 [facility] Hospitalist Admission H&P Date of Service: 09/27/2024 CHIEF COMPLAINT: Patient unable to ambulate and in her recliner with urine and feces surrounding her. HISTORY OF PRESENT ILLNESS Rick Escudero is a 74 year old female who presents with difficulty ambulating. Patient has not been able to get out of her recliner for the last 24 to 48 hours. She states she fell about 2 to 3 days ago. Since then she was able to get herself into the recliner but really has not been able to move. She lives with her grandson who is her transmission and coordination engineer. Normally, she gets around with a walker. Patient brought into the emergency room and in the ER patient was found to have a right IT fracture. Patient also with acute fifth metatarsal fracture. Patient was also found to be in atrial fibrillation with rapid ventricular response. Patient was given IV beta-althea therapy and IV digoxin and patient converted to a normal sinus rhythm. Patient takes metoprolol at home but patient is not on any anticoagulation. Patient denies any history of atrial fibrillation. Currently patient plans to go to surgery after cardiac clearance. Orthopedic notified regarding consult. They will be available to see the patient for surgical intervention in AM. Patient will be admitted for inpatient hospitalization to the intensive care unit. Patient has a history of tobacco use. She quit in 2009. She was for 41 years but her passed in 2012. She lives with her grand son and other family members since that time. She states they normally care for her well. However, she is concerned that [place] [facility] [place] but she does not really want to go [place] a [place]. Unfortunately, I told her it will really depend on how she does postoperatively. If she is ambulating and get around well then she may be able to go to rehab for a short period and then go home with home health. Will see how she does in the postoperative period. PAST MEDICAL HISTORY History reviewed. No pertinent past medical history. PAST SURGICAL HISTORY History reviewed. No pertinent surgical history. ALLERGIES No Known Allergies MEDICATIONS Current home medication list reviewed: Current Discharge Medication List STOP taking these medications metoprolol succinate XL 25 mg 24 hr tablet Comments: Reason for Stopping: furosemide 40 mg tablet Comments: Reason for Stopping: KLOR-CON M20 20 mEq tablet Comments: Reason for Stopping: levothyroxine 25 mcg tablet Comments: Reason for Stopping: FAMILY HISTORY Family History Problem Relation Age of Onset RI (myocardial infarction) Mother RI (myocardial infarction) Father SOCIAL HISTORY Social History Socioeconomic History Marital status: Tobacco Use Smoking status: Former Current packs/day: 0.00 Types: Cigarettes Quit date: 2009 Years since quittin.4 Smokeless tobacco: Former REVIEW OF SYSTEMS 10 systems negative except per HPI PHYSICAL EXAMINATION BP 91/57 | Pulse 91 | Temp 36.8 ?C (98.3 ?F) (Oral) | Resp 18 | Ht 1.524 m (5') | Wt 86.2 kg (190 lb) | SpO2 97% | BMI 37.11 kg/m? General: No acute distress HEENT: Normal oral mucosa, anicteric sclerae, NCAT Cardiovascular: Irregularly irregular rate and rhythm Lungs: Symmetric expansion, clear bilaterally Abdomen: Soft, NTND Musculoskeletal: No synovitis, internal rotation of the right leg Genitourinary: Deferred Skin: No rash, no skin lesions Extremities: No clubbing, no cyanosis, no lower extremity edema Neuro: AAOx3, no focal deficits Psych: Normal affect LABS - reviewed pertinent labs as below: CBC BMP PT/INR WBC (10*3/?L) Date Value 09/27/2024 13.43 (H) NA (mmol/L) Date Value 09/27/2024 134 (L) No results found for: "PT" RBC (10*6/?L) Date Value 09/27/2024 3.67 (L) K (mmol/L) Date Value 09/27/2024 3.5 INR (no units) Date Value 09/27/2024 1.1 PLT (10*3/?L) Date Value 09/27/2024 187 CALCIUM (mg/dL) Date Value 09/27/2024 8.1 (L) HGB (g/dL) Date Value 09/27/2024 10.2 (L) CL (mmol/L) Date Value 09/27/2024 96 (L) aPTT HCT (%) Date Value 09/27/2024 31.6 (L) BUN (mg/dL) Date Value 09/27/2024 46 (H) APTT Patient (Seconds) Date Value 09/27/2024 26 CREATININE (mg/dL) Date Value 09/27/2024 0.88 IMAGING - reviewed, pertinent results as below: Hospital Encounter on 09/27/24 XR Tibia fibula 2 vw right Narrative EXAM: XR KNEE <3 VW RIGHT, XR ANKLE <3 VW RIGHT, XR TIBIA FIBULA 2 VW RIGHT HISTORY: 74 years old Female with r/o fracture COMPARISON: None FINDINGS: Imaging of the right knee, tibia, fibula, and ankle was obtained. Acute mildly displaced impacted fifth metatarsal distal diaphyseal fracture is identified, with dorsal apex angulation. Severe joint space narrowing, osteophytosis and subchondral sclerosis are noted in the tibiofemoral compartments of the knee joint, with near complete articular collapse. Moderate degenerative changes are also visualized in the ankle joint. The ankle mortise is congruent. Plantar calcaneal enthesophytes are detected. Diffuse osteopenia is present. Diffuse soft tissue swelling is visualized. Impression Acute fifth metatarsal fracture. Polyarticular osteoarthrosis. Preliminary Report Dictated by Resident: Rico Warren XR Pelvis <3 vw Narrative EXAM: XR PELVIS <3 VW, XR FEMUR 2 VW RIGHT, XR HIPS 2 VW RIGHT HISTORY: 74 years old Female with r/o fracture COMPARISON: None FINDINGS: Imaging of the pelvis, right hip, and right femur was obtained. An acute comminuted severely displaced impacted intertrochanteric femoral neck fracture, with overlap between the fracture segments resulting in approximately 9.1 cm foreshortening of the femur. Mild joint space narrowing, osteophytosis and subchondral sclerosis are noted in the bilateral hips. Diffuse osteopenia is present. Impression Acute intertrochanteric femoral neck fracture. Preliminary Report Dictated by Resident: Rico Warren XR Knee <3 vw right Narrative EXAM: XR KNEE <3 VW RIGHT, XR ANKLE <3 VW RIGHT, XR TIBIA FIBULA 2 VW RIGHT HISTORY: 74 years old Female with r/o fracture COMPARISON: None FINDINGS: Imaging of the right knee, tibia, fibula, and ankle was obtained. Acute mildly displaced impacted fifth metatarsal distal diaphyseal fracture is identified, with dorsal apex angulation. Severe joint space narrowing, osteophytosis and subchondral sclerosis are noted in the tibiofemoral compartments of the knee joint, with near complete articular collapse. Moderate degenerative changes are also visualized in the ankle joint. The ankle mortise is congruent. Plantar calcaneal enthesophytes are detected. Diffuse osteopenia is present. Diffuse soft tissue swelling is visualized. Impression Acute fifth metatarsal fracture. Polyarticular osteoarthrosis. Preliminary Report Dictated by Resident: Rico Warren XR Hips 2 vw right Narrative EXAM: XR PELVIS <3 VW, XR FEMUR 2 VW RIGHT, XR HIPS 2 VW RIGHT HISTORY: 74 years old Female with r/o fracture COMPARISON: None FINDINGS: Imaging of the pelvis, right hip, and right femur was obtained. An acute comminuted severely displaced impacted intertrochanteric femoral neck fracture, with overlap between the fracture segments resulting in approximately 9.1 cm foreshortening of the femur. Mild joint space narrowing, osteophytosis and subchondral sclerosis are noted in the bilateral hips. Diffuse osteopenia is present. Impression Acute intertrochanteric femoral neck fracture. Preliminary Report Dictated by Resident: Pravinamed Tantawi XR Femur 2 vw right Narrative EXAM: XR PELVIS <3 VW, XR FEMUR 2 VW RIGHT, XR HIPS 2 VW RIGHT HISTORY: 74 years old Female with r/o fracture COMPARISON: None FINDINGS: Imaging of the pelvis, right hip, and right femur was obtained. An acute comminuted severely displaced impacted intertrochanteric femoral neck fracture, with overlap between the fracture segments resulting in approximately 9.1 cm foreshortening of the femur. Mild joint space narrowing, osteophytosis and subchondral sclerosis are noted in the bilateral hips. Diffuse osteopenia is present. Impression Acute intertrochanteric femoral neck fracture. Preliminary Report Dictated by Resident: Mohamed Tantawi XR Ankle <3 vw right Narrative EXAM: XR KNEE <3 VW RIGHT, XR ANKLE <3 VW RIGHT, XR TIBIA FIBULA 2 VW RIGHT HISTORY: 74 years old Female with r/o fracture COMPARISON: None FINDINGS: Imaging of the right knee, tibia, fibula, and ankle was obtained. Acute mildly displaced impacted fifth metatarsal distal diaphyseal fracture is identified, with dorsal apex angulation. Severe joint space narrowing, osteophytosis and subchondral sclerosis are noted in the tibiofemoral compartments of the knee joint, with near complete articular collapse. Moderate degenerative changes are also visualized in the ankle joint. The ankle mortise is congruent. Plantar calcaneal enthesophytes are detected. Diffuse osteopenia is present. Diffuse soft tissue swelling is visualized. Impression Acute fifth metatarsal fracture. Polyarticular osteoarthrosis. Preliminary Report Dictated by Resident: Rico Tantawi X-ray chest 1 view Narrative CHEST ONE VIEW ORDERING PHYSICIAN: ODALYS MAHONEY CLINICAL HISTORY:Pre op ; femoral neck fracture. TECHNIQUE: Single frontal radiograph of the chest was obtained. COMPARISON: None available. FINDINGS: Cardiac silhouette is within normal limits. No focal lung consolidation. No pneumothorax or pleural effusion. No acute osseous abnormality. Impression No acute cardiopulmonary abnormality. HS:Y RL: [id number] End of Report. SSMENT/PLAN: 1. Right intertrochanteric fracture; continue with pain control and n.p.o. for surgical intervention in the a.m. Orthopedic consulted. Patient will need physical therapy postoperatively and will need arrangement for inpatient rehab versus group home facility placement. Continue with DVT prophylaxis. 2. Atrial fibrillation with rapid ventricular response; continue with medication for rate control. Hold off on long-term anticoagulation at this time. Patient back in sinus rhythm and will get an echocardiogram to further evaluate cardiac status. Cardiology consulted. Continue with beta-althea therapy. Patient was given intravenous digoxin and patient converted to sinus rhythm. 3. History of tobacco use; outpatient follow-up with pulmonary 4. History of hypothyroidism; continue with levothyroxine 5. GI DVT prophylaxis DVT prophylaxis: enoxaparin Stress ulcer prophylaxis: pantoprazole Code status: FULL Advanced Care Planning (Z71.89) Above assessment and plan discussed at length with patient, patient expressed full understanding. Questions and concerned addressed. Surrogate decision maker: NO Level of care expected after discharge: HOME Time spent: 3 minutes discussing the advanced care plan Smoking Cessation: (Z71.6) Tobacco user?: NO Patient will require inpatient stay of 2 midnights or more given high risk of morbidity and mortality. Critical care time spent on patient care was 45 minutes [place] CONCRETE CONVEYOR OPERATOR was verified during stay Sasha Pineda MD IM-INTERNAL MEDICINE STAFF [facility] - Health Procedure Notes Date/Time Note Provider Source 2024-10-22 14:34:45 Vascular Access Services Date of Service: 10/22/24 Patient location: [facility] 2111 Placed by: Kirby Bhatti RN 74 year old female. 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 Questions encouraged and answered accordingly. According to [facility] Operating Procedures Policy, a Time Out was performed to include procedure performed, identity of proceduralist, and identity of procedure recipient by two identifiers. Co-signed/witnessed by Juany Benson RN. Sterile technique was used : A cap and mask were donned, hand hygiene was performed and sterile gown and gloves were donned. The skin was prepped with 2% chlorhexidine and the solution was allowed to dry. A full body fenestrated drape was placed over the patient without contaminating the drape during placement. Anesthesia: Lidocaine HCL 1% infiltration to insertion site Ultrasound utilized: yes Sherlock Location used: yes 3CG Tip Location System used: yes Sterile dressing: yes Narrative: Patient was prepped using chlorhexidine and draped utilizing max-barrier precautions. A 5fr double-lumen Bard PICC line was introduced with the Seldinger technique into the left basilic vein in one attempt(s). Guide wire was threaded without difficulty. The micro-introducer was then placed over the guide wire, the guide wire was removed, and then the catheter was inserted through the micro-introducer. The micro-introducer was then peeled away and the PICC was secured using silk 2-0 sutures and transparent dressing. Good flow was noted from the port(s) and the catheter flushed easily. Blood loss was minimal. Trimmed length: 39 cm. Baseline Arm Circumference: 30 cm. Catheter exposed: 0 cm. Complications: none Note: R limb restriction due to mastectomy with lymph node removal Chest x-ray: ordered and pending REF#: [id number] Lot #: [id number] Exp Date: 07/09/25 Kirby Bhatti RN [facility] 2024-09-29 19:02:39 Associated Order(s): Nerve Block Nerve Block Procedure: Other Peripheral Nerve Patient Location: PACU Laterality: Right Surgical Anesthesia: Post Op Pain: Start Time: 09/29/2024 4:00 PM Post Op Pain Management requested by surgeon per surgical: OR Posting and Progress Note Anesthesiologist: Charley Varela MD Performed by: anesthesiologist Preanesthetic timeout completed prior to procedure: patient identified,IV checked, site marked, risks and benefits discussed, surgical consent, monitors and equipment checked, pre-op evaluation, timeout performed Informed consent obtained patient wishes to proceed: yes Patient Position: supine Sterile Prep/Drape: Yes Monitoring: continuous pulse ox, blood pressure and ECG Injection Technique: single-shot Needle Type: Other Needle Gauge: 21 G Needle Length: 4.0 Number of Attempts: 1 Technique: Ultrasound guided, Negative aspiration and Intermittent aspiration during injection Events: Local anesthetic solution visualized around nerve, Patient tolerated procedure well, Negative Aspiration, No paresthesia on incremental injection and No symptoms of intraneural or IV injection Additional Notes:Right fascia iliaca block administered under US in PACU. Patient tolerated the procedure well. AN-ANESTHESIOLOGY ANESTHESIOLOGIST [facility] 2024-09-29 12:40:10 Associated Order(s): Intubation Intubation Date/Time: 09/29/2024 12:20 PM Urgency: elective Airway not difficult General Information and Staff Patient location during procedure: OR Performed: resident/DEFENCE INTELLIGENCE ANALYST Performed by: Nikolas García CRNA Authorized by: Charley Varela MD Indications and Patient Condition Indications for airway management: anesthesia Spontaneous ventilation: present Sedation level: deep Preoxygenated: yes Patient position: sniffing MILS maintained throughout Mask difficulty assessment: 1 - vent by mask No planned trial extubation Final Airway Details Final airway type: endotracheal airway Successful airway: ETT Cuffed: yes Successful intubation technique: video laryngoscopy Endotracheal tube insertion site: oral Blade: Maykel Blade size: #3 ETT size (mm): 7.0 Cormack-Lehane Classification: grade I - full view of glottis Placement verified by: chest auscultation and capnometry Cuff volume (mL): 8 Measured from: lips ETT to lips (cm): 20 Number of attempts at approach: 1 Ventilation between attempts: none Number of other approaches attempted: 0 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 [facility] Notes Date/Time Note Provider Source 2024-12-03 13:36:24 Tried calling patient, no answer and unable to leave voicemail d/t box being full. Called nursing facility and they already released patient. If patient calls back she will need to schedule appointment Dian Ramey RN [facility] 2024-12-03 13:01:10 I did not see this patient post Op. I need to see her before sending any medications. Thanks ORT-ORTHOPAEDIC SURGERY STAFF [facility] 2024-12-03 11:00:00 ASSESSMENT SUMMARY RICK ESCUDERO is a 74 year old woman seen today by [facility] for a [facility] Visit. Patient Currently Located in their home state of [place], YES DIAGNOSIS [id number] - Infection and inflammatory reaction due to internal right hip prosthesis, initial encounter GENERAL ASSESSMENT* Feet: 5 WEIGHT (pounds): 176 <hr> BODY MEASUREMENTS:<em>Patient Height in centimeters</em>: 152.40<em>Patient Weight in kilograms</em>: 79.83<em>Patient Body Mass Index</em>: 34.37 HISTORY OF PRESENT ILLNESS Summary of the hospitalization and the patient's ongoing clinical needs: This patient was seen today for a BRITNI visit. <hr> Hospital Summary:Admitting DX: Surgical repair of a comminuted intertrochanteric femoral neck fracture Admission dates: 09/27/2024 - 11/20/2024 Hospital/facility: [facility] records reviewed. Hospitalization Chart Review: See below. Reason for Hospitalization: Patient fell at home and sustained a right hip fracture. She was admitted for surgical repair of a comminuted intertrochanteric femoral neck fracture. Hospital Course: The patient was initially admitted on 09/27/24 after falling at home and being found to have a right hip fracture. She underwent surgical repair with intramedullary nail fixation on 09/29/24 and was transferred to [facility] on 10/08/24 for rehabilitation. On 10/15/24, she developed fever and was readmitted to the hospital where she was found to have sepsis from an infected hip wound with MRSA. She underwent incision and drainage of a right hip abscess on 10/19/24 with placement of antibiotic beads. She was treated with IV antibiotics and transferred back to SNF on 10/23/24 for continued wound care and rehabilitation. Active Problem List: Right hip surgical site infection with MRSA - Treated with I&D and IV antibiotics Sepsis - Treated with IV antibiotics and fluids Post-op right hip fracture repair - Physical therapy and rehabilitation Atrial fibrillation with RVR - Rate control with metoprolol Acute anemia - Required blood transfusions Acute kidney injury - Improved with IV fluids Hypokalemia - Repleted with supplements Chronic Problem List: Hypertension Hypothyroidism COPD Breast cancer history Osteoarthritis Lymphedema Obesity Imagin10/22/24 CXR: Left PICC line terminates at cavoatrial junction. Mild right perihilar subsegmental atelectasis. 10/17/24 CT right femur: Abscess formation with gas along lateral thigh merging with comminuted intertrochanteric fracture. Intramedullary nail fixation present. Procedures: 10/19/24: Incision and drainage of right hip abscess with placement of antibiotic beads 09/29/24: Right hip intramedullary nail fixation for intertrochanteric fracture Discharge Disposition: [facility] facility ([facility]) <hr> Current Medication List:ATORVASTATIN CALCIUM 10 MG TABLET / take 1 tablet by mouth once daily FERROUS SULFATE 325 (65 FE) MG TABLET / take 1 tablet by mouth once daily FUROSEMIDE 40 MG TABLET / take one tab by mouth twice a day GABAPENTIN 100 MG CAPSULE / take 1 tablet by mouth once daily at bedtime GABAPENTIN 300 MG CAPSULE / take one tablet by mouth three times a day HYDROCODONE-ACETAMINOPHEN 5-325 MG TABLET / take 1 tablet by mouth once daily as tommy TAVARES M20 20 MEQ TABLET ER / take 1 tablet by mouth once daily LEVOTHYROXINE SODIUM 25 MCG TABLET / take 1 tablet by mouth once daily METOPROLOL SUCCINATE ER 25 MG TABLET ER 24 HR / take 1 tablet by mouth once daily TRAZODONE HCL 50 MG TABLET / take 1 tablet by mouth once daily Discharge Medication updates if applicable: <hr> TODAY'S VISIT DATE 12/03/2024:Subjective: Patient being evaluated for post-hospital transitional care visit. Today patient reports feeling well. She is laying comfortably in bed. Patient's daughter in law/phi is assisting with history. Patient is bedbound and PHI is assisting with all ADLs. They did receive a hospital bed, lift, wheelchair, and shower chair. However, PHI reports this is still a lot of work for her by herself. She also reports she saw a pressure ulcer on patient's sacral area today. Will order [facility] SN, PT, OT, Aide, and teacher dancing to eval and recommend wound care Tx. Patient was discharged on 11/20/2024, and still has the same Thomas catheter. Instructed [facility] SN to take supplies to exchange Thomas when go for intake in case this is needed. Patient also was anemic, needed transfusions. She is now on OTC Iron supplementation, will request SN draw CBC to assures she is staying in good range. Incisions look healed, skin clean, dry, intact. Will ask SN to remove dale and stitches if ready to come off during visit. [facility] reports she cannot take patient to appointments at this time, due to patients inability to get in the car. Will ask CM to find visiting provider service in her area, until she is strong enough to leave the home. Otherwise, patient is eating well and reports being comfortable. Denies pain or any shortness of breath, chest pain, cough, palpitations, edema, fatigue, dizziness, headache, abdominal pain/cramping, N/V/D, urinary s/s, or fever. Last labs 10/23/24: WBC 8.63, Hgb 7.8 (L), Plt 339, Na 134 (L), K 4.3, Cr 0.47, BUN 17.Objective:Vitals: 5'0", 176 lbs. Does not have BP cuff, CM has already ordered one for patient. Physical Exam: See below <hr> FOLLOW UP APPOINTMENTS:PCP: unable to leave the home at this time BAZZI ACTIONS DONE TODAY HH: Orders placed today for SN, PT, OT, Aide, and marine operations coordinator DME: No needs at this time [facility] Referrals:Referred to [facility]. Counseled on most likely causes for readmission based on clinical picture. Contingency plans discussed. Top 3 Most Likely Causes of Readmission: Recurrent/persistent hip wound infection requiring IV antibiotics (90%) Complications from atrial fibrillation requiring rate/rhythm control (80%) Falls/mobility issues related to hip surgery recovery (70%) <hr> PLAN- See below - Informed to call [facility] with any additional questions or concerns. Dx: T84.51XA - Infection and inflammatory reaction due to internal right hip prosthesis, initial encounter Additional Diagnosis Notes: Today patient reports feeling well. She is laying comfortably in bed. Patient's daughter in law/phi is assisting with history. Patient is bedbound and PHI is assisting with all ADLs. They did receive a hospital bed, lift, wheelchair, and shower chair. However, PHI reports this is still a lot of work for her by herself. She also reports she saw a pressure ulcer on patient's sacral area today. Will order [facility] SN, PT, OT, Aide, and teacher dancing to eval and recommend wound care Tx. Patient was discharged on 11/20/2024, and still has the same Thomas catheter. Instructed [facility] SN to take supplies to exchange Thomas when go for intake in case this is needed. Patient also was anemic, needed transfusions. She is now on OTC Iron supplementation, will request SN draw CBC to assures she is staying in good range. Incisions look healed, skin clean, dry, intact. Will ask SN to remove dale and stitches if ready to come off during visit. [facility] reports she cannot take patient to appointments at this time, due to patients inability to get in the car. Will ask CM to find visiting provider service in her area, until she is strong enough to leave the home. Otherwise, patient is eating well and reports being comfortable. Denies pain or any shortness of breath, chest pain, cough, palpitations, edema, fatigue, dizziness, headache, abdominal pain/cramping, N/V/D, urinary s/s, or fever. Last labs 10/23/24: WBC 8.63, Hgb 7.8 (L), Plt 339, Na 134 (L), K 4.3, Cr 0.47, BUN 17. Will see if Visiting PCP services is available in patient's area. Reports cannot see surgeon due to patient cannot leave. Continue current regime. Red flags discussed shortness of breath, chest pain, cough, palpitations, edema, fatigue, dizziness, headache, abdominal pain/cramping, N/V/D, urinary s/s, or fever and patient is aware to contact [facility] if there are any symptom changes, symptoms not improving, or if additional questions or concerns arise. HPI Completed: Yes PHYSICAL EXAM Constitutional Physical Exam Notes: Alert, oriented, speaking in full sentences. Pleasant female in no acute distress. Neurologic Physical Exam Notes: Daughter in law/PHI assists with history. Patient answers simple questions, but deffers most questions to PHI. Pulmonary Physical Exam Notes: No increased work of breathing, coughing, shortness of breath during visit. CONDITION DETAIL SUMMARY Section Completed: Yes 2024 APPOINTMENT CPT CODE Please indicate how this visit was conducted: Video Please select the video platform used during the visit: [employer] Video Room Please record the total amount of time you spent on this patient visit- Total time includes time spent on preparation, speaking with the patient, documentation, and post-visit coordination of care - This is limited to time spent ON THE DATE OF SERVICE (e.g. does not include time spent on days prior to or after the date of service) 40 or more minutes Did you review the patient's prescription and non-prescription drugs, vitamins, herbal remedies, and other supplements, AND is the accompanying medication list documented in the medical record?: Yes Has the patient been discharged within the last 30 days?: Yes Did you complete a medication reconciliation of the patient's discharge medications and current medications?: Yes [facility] 2024-12-03 08:19:48 Rick Efren (74 year old female) is calling to request refill(s) for Hydrocodone SURGERY 10/19/24. Patient is out of medication Please send medication(s) to: [facility] [address] [place] [id number] Louisa Gonzalez [facility] 2024-11-30 14:15:00 Reason for consult: Psychosocial assessment General Wellness Symptom, medical or functional status changes in the last 6 months: femur FX with repair in September, complicated by infection. Went to SNF. is NWB on R leg. has a Thomas catheter and lift at home Social Background Marital Status: Children: Yes Notes on social support: son and dtr in law live next door Living Arrangement: House Education, Culture, Spirituality Highest level of education: 8th grade/less Serious Illness Conversation Recommendations: 1. Assessment and Plan Assessment and Plan Summary: Step 1. Eligibility Patients eligible for palliative care should have one or more of the serious illnesses below: -Stage 3 or 4 Cancer: Locally advanced or metastatic cancer; leukemia or lymphoma -Cardiac: Heart failure or extensive cardiac disease -Respiratory: Severe chronic lung disease -Neurological disease with progressive deterioration -Renal Disease: Stage 4 or 5 Chronic Kidney Disease or ESRD -End-Stage Liver Disease -Dementia -Frailty Syndrome characterized by weakness, slowness, low level of physical activity, fatigue, and/or unintentional weight loss -Other: B. AND AT LEAST ONE OF THE FOLLOWING: -Palliative Performance Score (PPS) is less than or equal to 70%: Unable to do normal job/work OR -Patient at high risk of decline in the next 6-12 months. Patient is eligible (meet criteria for A and B) AND understands the program is voluntary and is agreeable to enrolling in the [facility] Palliative Care Program- NO Palliative Plan of Care: Palliative Care Clinical Summary: Bobby referred from [facility] due to recent DC from SNF to home. Bobby had a femur FX, complicated by incision infection, she is NWB on R leg. ALICIA Hernandez is PHI, lives next door, is PCG. She is unable to provide much personal care due to her own back. Bobby has a Thomas catheter and a lift at home. Bobby has cardiac and pulmonary comorbidities however they are well controlled at this time. Mbr's goals include participating in PT/OT and getting back to baseline which was independence with ADLs and IADLs. SWCM reviewed options for CG assistance. CG case already in for LTC. Family is unable to pay out of pocket. PC Clinicians Involved: Afsaneh Giron [Oneliner (dx & tx)] Pertinent PMH: AFib, CHF, COPD, hx of breast CA with post treatment pain Active Sx: bedbound DME: Lift Psychosocial: Son and DIL live next door. Mbr lives alone Last SIC Date: n/a initial visit Code Status: Full HCP: Mary Escudero- dtr in law. Copy on file POLST: unknown Anticipated Dispo: Refer to [facility] as mbr and family could benefit from Longitudinal support but not palliative appropriate. Next Steps: Ensure [facility] is able to secure another agency as [facility] has requested a new one. Refer to [facility] Treating specialist: Caregivers: Video ability: Afsaneh Giron [facility] 2024-11-12 13:52:39 Called and spoke to daughter in law - Danita Escudero. She verbalized understanding. Asked if I could called [facility] and notify patients nurse. I called phone number provided by daughter in - [phone] and spoke to [facility] patients nurse. I notified her that provider said the wound vac can be turned off and if still draining to keep wound vac on. If no drainage then can place aqucacel dressing over it. Orders will need to be faxed [phone] discontinue Dian Ramey RN [facility] 2024-11-12 10:12:23 [facility] Name: [facility] [id number] female / 74 year old (1950) Patient Specific Symptoms: patient is still in the nursing facility and she still has the wound vac on her, the liqiud was clear, they are wanting to know if the provider still wants this on the patient. Please assist with contacting them with any questions [phone] Thank you Theresa May [facility] 2024-10-25 11:55:[address] José, via text. He stated - We told them she needs a wound vac. Change every week. Or when the canister is full. She will drain for a few weeks. Nothing to be done for now. I called nurse Felicity. She will notify wound nurse and will call back if any further questions. Dian Ramey RN [facility] 2024-10-25 10:18:43 Rick Escudero Clinic Name: [facility] [id number] female / 74 year old (1950) Patient Specific Symptoms: patient is currently at a facility, the nurse is calling on her behalf to let us know that she is needing her dressing changed, the patient is draining a lot and she normally has this changed at her appointments, they are wanting to know what to do. Please assist with contacting the facility back with options. Call back number [phone] ( 100 Felicity) is who the nurse said to ask for. Theresa May [facility] 2024-10-23 08:54:56 Images from the original note were not included. General Vancomycin Note [facility] Clinical Pharmacist Consult Consulting Service: Vancomycin (Pharmacy to Dose) Pharmacy Vancomycin Therapeutic Monitoring Note Patient Name MRN Sex Unit Rick Escudero [id number] 1950 female Indication for vancomycin and goal Age Total Body Weight Skin and Soft Tissue Infection AUC/DIXON 400-600 mcg*hr/ mL 74 year old Wt Readings from Last 1 Encounters: 10/23/24 86.8 kg (191 lb 5.8 oz) Laboratory Data and Vancomycin Dosing CREATININE Date/Time Value Ref Range Status 10/23/2024 04:47 AM 0.47 (L) 0.50 - 1.04 mg/dL Final 10/22/2024 04:16 AM 0.59 0.50 - 1.04 mg/dL Final 10/21/2024 04:58 AM 0.49 (L) 0.50 - 1.04 mg/dL Final Date HD/CRRT? Dosing Regimen and frequency @ Times (mg) Vancomycin Level @ Time (mcg/mL) 10/22/24 No 1000 mg IV Q12H given @ 1517 - 10/23/24 No 1000 mg IV Q12H given @ 0314, scheduled for 1514 - - - - - - Assessment & Plan Renal function remains stable. Based on patient-specific levels and Bayesian monitoring, the current regimen is estimated to yield an AUC/DIXON of 461.7 mcg*hr/ml, which is therapeutic Plan is to: Continue current regimen of: Vancomycin 1000 mg IV Q12H Plan to draw next level on: _10/24_ @ _0800_. Thank you for allowing pharmacy to participate in the care of this patient. Please feel free to contact us with any questions or concerns. Lesley Merrill RP, PharmD [facility] Department of Pharmacy - [place] Phone: ADC: [phone] Lesley Merrill [facility] 2024-10-22 18:16:30 Problem: Falls, Risk of Goal: Absence of falls Outcome: Progressing as expected Problem: Discharge Planning Goal: Adequate for discharge Outcome: Progressing as expected Goal: Effective communication Outcome: Progressing as expected Problem: Fluid Volume - Imbalanced Goal: Absence of signs and symptoms of imbalanced fluid volume Outcome: Progressing as expected Problem: Infection, Risk of or Actual Goal: Absence of infection Outcome: Progressing as expected Problem: Mental Status - Impaired, Risk of Goal: Mental status restored to baseline Outcome: Progressing as expected Goal: Absence of physical injury Outcome: Progressing as expected Problem: Nutrition Deficit Goal: Adequate nutritional intake Outcome: Progressing as expected Problem: Pain Goal: Control of pain at or below patient's documented comfort goal Outcome: Progressing as expected Goal: Reduction in pain sensation Outcome: Progressing as expected Problem: Respiratory Function - Impaired Goal: Able to cough effectively Outcome: Progressing as expected Goal: Adequate oxygenation Outcome: Progressing as expected Goal: Adequate work of breathing Outcome: Progressing as expected Goal: Patent airway Outcome: Progressing as expected Problem: Skin integrity Impaired (Risk or Actual) Goal: Wound healing Outcome: Progressing as expected Goal: Prevention of new skin breakdown Outcome: Progressing as expected Problem: Tissue Perfusion - Altered, Risk of Goal: Hemodynamically stable Outcome: Progressing as expected Problem: Skin integrity Impaired (Risk or Actual) Goal: Wound healing Outcome: Progressing as expected Goal: Prevention of new skin breakdown Outcome: Progressing as expected Juany Benson RN [facility] 2024-10-22 16:28:46 Patient had excessive bleeding at left subclavian IV site after CL was removed. Pressure was held for~10 minutes until the bleeding stopped then a pressure dressing was applied. Tranexamic acid ordered. Teodora Vogt RN [facility] 2024-10-22 14:17:49 Images from the original note were not included. General Vancomycin Note [facility] Clinical Pharmacist Consult Consulting Service: Vancomycin (Pharmacy to Dose) Pharmacy Vancomycin Therapeutic Monitoring Note Patient Name MRN Sex Unit Rick Escudero [id number] 1950 female Indication for vancomycin and goal Age Total Body Weight Skin and Soft Tissue Infection AUC/DIXON 400-600 mcg*hr/ mL 74 year old Wt Readings from Last 1 Encounters: 10/19/24 91.4 kg (201 lb 6.4 oz) Laboratory Data and Vancomycin Dosing CREATININE Date/Time Value Ref Range Status 10/22/2024 04:16 AM 0.59 0.50 - 1.04 mg/dL Final 10/21/2024 04:58 AM 0.49 (L) 0.50 - 1.04 mg/dL Final 10/19/2024 03:44 AM 0.54 0.50 - 1.04 mg/dL Final Date HD/CRRT? Dosing Regimen and frequency @ Times (mg) Vancomycin Level @ Time (mcg/mL) - - - - - - - Assessment & Plan Based on patient-specific levels and Bayesian monitoring, the current regimen is estimated to yield an AUC/DIXON of 461.7 mcg*hr/ml, which is therapeutic Plan is to: Start vancomycin scheduled at a dose of: Vancomycin 1000 mg IV Q12H Plan to draw next level on: _10/24_ @ _0800_. Thank you for allowing pharmacy to participate in the care of this patient. Please feel free to contact us with any questions or concerns. Lesley Merrill RPH, PharmD [facility] Department of Pharmacy - [place] Phone: ADC: [phone] [facility] [employer] 2024-10-22 05:07:36 Problem: Falls, Risk of Goal: Absence of falls Outcome: Progressing as expected Problem: Discharge Planning Goal: Adequate for discharge Outcome: Progressing as expected Goal: Effective communication Outcome: Progressing as expected Problem: Fluid Volume - Imbalanced Goal: Absence of signs and symptoms of imbalanced fluid volume Outcome: Progressing as expected Problem: Infection, Risk of or Actual Goal: Absence of infection Outcome: Progressing as expected Problem: Mental Status - Impaired, Risk of Goal: Mental status restored to baseline Outcome: Progressing as expected Goal: Absence of physical injury Outcome: Progressing as expected Problem: Nutrition Deficit Goal: Adequate nutritional intake Outcome: Progressing as expected Problem: Pain Goal: Control of pain at or below patient's documented comfort goal Outcome: Progressing as expected Goal: Reduction in pain sensation Outcome: Progressing as expected Problem: Respiratory Function - Impaired Goal: Able to cough effectively Outcome: Progressing as expected Goal: Adequate oxygenation Outcome: Progressing as expected Goal: Adequate work of breathing Outcome: Progressing as expected Goal: Patent airway Outcome: Progressing as expected Problem: Skin integrity Impaired (Risk or Actual) Goal: Wound healing Outcome: Progressing as expected Goal: Prevention of new skin breakdown Outcome: Progressing as expected Problem: Tissue Perfusion - Altered, Risk of Goal: Hemodynamically stable Outcome: Progressing as expected Problem: Skin integrity Impaired (Risk or Actual) Goal: Wound healing Outcome: Progressing as expected Goal: Prevention of new skin breakdown Outcome: Progressing as expected [facility] [employer] 2024-10-21 10:44:12 Problem: Falls, Risk of Goal: Absence of falls Outcome: Progressing as expected Problem: Discharge Planning Goal: Adequate for discharge Outcome: Progressing as expected Goal: Effective communication Outcome: Progressing as expected Problem: Fluid Volume - Imbalanced Goal: Absence of signs and symptoms of imbalanced fluid volume Outcome: Progressing as expected Problem: Infection, Risk of or Actual Goal: Absence of infection Outcome: Progressing as expected Problem: Mental Status - Impaired, Risk of Goal: Mental status restored to baseline Outcome: Progressing as expected Goal: Absence of physical injury Outcome: Progressing as expected Problem: Nutrition Deficit Goal: Adequate nutritional intake Outcome: Progressing as expected Problem: Pain Goal: Control of pain at or below patient's documented comfort goal Outcome: Progressing as expected Goal: Reduction in pain sensation Outcome: Progressing as expected Problem: Respiratory Function - Impaired Goal: Able to cough effectively Outcome: Progressing as expected Goal: Adequate oxygenation Outcome: Progressing as expected Goal: Adequate work of breathing Outcome: Progressing as expected Goal: Patent airway Outcome: Progressing as expected Problem: Skin integrity Impaired (Risk or Actual) Goal: Wound healing Outcome: Progressing as expected Goal: Prevention of new skin breakdown Outcome: Progressing as expected Problem: Tissue Perfusion - Altered, Risk of Goal: Hemodynamically stable Outcome: Progressing as expected Problem: Skin integrity Impaired (Risk or Actual) Goal: Wound healing Outcome: Progressing as expected Goal: Prevention of new skin breakdown Outcome: Progressing as expected Lauren Ladd RN [facility] 2024-10-20 23:30:36 Problem: Falls, Risk of Goal: Absence of falls Outcome: Progressing as expected Problem: Discharge Planning Goal: Adequate for discharge Outcome: Progressing as expected Goal: Effective communication Outcome: Progressing as expected Problem: Fluid Volume - Imbalanced Goal: Absence of signs and symptoms of imbalanced fluid volume Outcome: Progressing as expected Problem: Infection, Risk of or Actual Goal: Absence of infection Outcome: Progressing as expected Problem: Mental Status - Impaired, Risk of Goal: Mental status restored to baseline Outcome: Progressing as expected Goal: Absence of physical injury Outcome: Progressing as expected Problem: Nutrition Deficit Goal: Adequate nutritional intake Outcome: Progressing as expected Problem: Pain Goal: Control of pain at or below patient's documented comfort goal Outcome: Progressing as expected Goal: Reduction in pain sensation Outcome: Progressing as expected Problem: Respiratory Function - Impaired Goal: Able to cough effectively Outcome: Progressing as expected Goal: Adequate oxygenation Outcome: Progressing as expected Goal: Adequate work of breathing Outcome: Progressing as expected Goal: Patent airway Outcome: Progressing as expected Problem: Skin integrity Impaired (Risk or Actual) Goal: Wound healing Outcome: Progressing as expected Goal: Prevention of new skin breakdown Outcome: Progressing as expected Problem: Tissue Perfusion - Altered, Risk of Goal: Hemodynamically stable Outcome: Progressing as expected Problem: Skin integrity Impaired (Risk or Actual) Goal: Wound healing Outcome: Progressing as expected Goal: Prevention of new skin breakdown Outcome: Progressing as expected T Carine Contreras RN [facility] 2024-10-20 15:22:41 Problem: Falls, Risk of Goal: Absence of falls Outcome: Progressing as expected Problem: Discharge Planning Goal: Adequate for discharge Outcome: Progressing as expected Goal: Effective communication Outcome: Progressing as expected Problem: Fluid Volume - Imbalanced Goal: Absence of signs and symptoms of imbalanced fluid volume Outcome: Progressing as expected Problem: Infection, Risk of or Actual Goal: Absence of infection Outcome: Progressing as expected Problem: Mental Status - Impaired, Risk of Goal: Mental status restored to baseline Outcome: Progressing as expected Goal: Absence of physical injury Outcome: Progressing as expected Problem: Nutrition Deficit Goal: Adequate nutritional intake Outcome: Progressing as expected Problem: Pain Goal: Control of pain at or below patient's documented comfort goal Outcome: Progressing as expected Goal: Reduction in pain sensation Outcome: Progressing as expected Problem: Respiratory Function - Impaired Goal: Able to cough effectively Outcome: Progressing as expected Goal: Adequate oxygenation Outcome: Progressing as expected Goal: Adequate work of breathing Outcome: Progressing as expected Goal: Patent airway Outcome: Progressing as expected Problem: Skin integrity Impaired (Risk or Actual) Goal: Wound healing Outcome: Progressing as expected Goal: Prevention of new skin breakdown Outcome: Progressing as expected Problem: Tissue Perfusion - Altered, Risk of Goal: Hemodynamically stable Outcome: Progressing as expected Problem: Skin integrity Impaired (Risk or Actual) Goal: Wound healing Outcome: Progressing as expected Goal: Prevention of new skin breakdown Outcome: Progressing as expected [facility] 2024-10-19 22:49:38 Problem: Falls, Risk of Goal: Absence of falls Outcome: Progressing as expected Problem: Discharge Planning Goal: Adequate for discharge Outcome: Progressing as expected Goal: Effective communication Outcome: Progressing as expected Problem: Fluid Volume - Imbalanced Goal: Absence of signs and symptoms of imbalanced fluid volume Outcome: Progressing as expected Problem: Infection, Risk of or Actual Goal: Absence of infection Outcome: Progressing as expected Problem: Pain Goal: Control of pain at or below patient's documented comfort goal Outcome: Progressing as expected Goal: Reduction in pain sensation Outcome: Progressing as expected Problem: Nutrition Deficit Goal: Adequate nutritional intake Outcome: Progressing as expected Problem: Skin integrity Impaired (Risk or Actual) Goal: Wound healing Outcome: Progressing as expected Goal: Prevention of new skin breakdown Outcome: Progressing as expected Radha Valderrama RN [facility] 2024-10-19 13:58:12 Problem: Falls, Risk of Goal: Absence of falls Outcome: Progressing as expected Problem: Discharge Planning Goal: Adequate for discharge Outcome: Progressing as expected Goal: Effective communication Outcome: Progressing as expected Problem: Fluid Volume - Imbalanced Goal: Absence of signs and symptoms of imbalanced fluid volume Outcome: Progressing as expected Problem: Infection, Risk of or Actual Goal: Absence of infection Outcome: Progressing as expected Problem: Mental Status - Impaired, Risk of Goal: Mental status restored to baseline Outcome: Progressing as expected Goal: Absence of physical injury Outcome: Progressing as expected Problem: Nutrition Deficit Goal: Adequate nutritional intake Outcome: Progressing as expected Problem: Pain Goal: Control of pain at or below patient's documented comfort goal Outcome: Progressing as expected Goal: Reduction in pain sensation Outcome: Progressing as expected Problem: Respiratory Function - Impaired Goal: Able to cough effectively Outcome: Progressing as expected Goal: Adequate oxygenation Outcome: Progressing as expected Goal: Adequate work of breathing Outcome: Progressing as expected Goal: Patent airway Outcome: Progressing as expected Problem: Skin integrity Impaired (Risk or Actual) Goal: Wound healing Outcome: Progressing as expected Goal: Prevention of new skin breakdown Outcome: Progressing as expected Problem: Tissue Perfusion - Altered, Risk of Goal: Hemodynamically stable Outcome: Progressing as expected Problem: Skin integrity Impaired (Risk or Actual) Goal: Wound healing Outcome: Progressing as expected Goal: Prevention of new skin breakdown Outcome: Progressing as expected [facility] 2024-10-19 07:43:18 OPERATIVE NOTE Date of Surgery: 10/19/2024 Attending Physician : Chaka José M.D. [employer] Professor(s): None Pre-Operative Diagnosis: Right hip surgical site infection Post-Operative Diagnosis: Right hip surgical site infection Procedure: 1. Right hip irrigation and debridement, excisional using knife deep to bone, tendons, muscles 2- Right application of antibiotics beads 3- Tissue biopsy and culture to rule out surgical infection Anesthesia: General Antibiotics: Ancef prior to incision Tourniquet: Not used EBL: 25 ml IV Fluids: See anesthesia report Implants: Other fluids: None Drains: None Specimens: Yes Complications: None Post-Op Condition: Stable INDICATIONS: This is 74 years old, female with history of right hip highly comminuted fracture status post ORIF with CMN. The patient developed wound drainage and CT scan showed abscess at the surgical incision. We reviewed the patient's images and recommended operative irrigation and debridement. All risks and benefits were discussed with the patient and family up to their satisfaction. Th risks of surgery included post operative wound infection, malunion, nonunion and need for further revision surgeries. Family and the patient were given the option as questions and all questions were answered to their satisfaction. The patient and family wished to proceed with surgery. Informed consent was obtained. PROCEDURE IN DETAIL: On the day of surgery, the patient and the family met in the preop holding area. The op site was marked. The patient was escorted back to the operating room. The patient was subsequently placed under general anesthesia. The patient placed supine. All bony prominences well-padded. The patient's right lower extremity was preprepped with chlorhexidine scrub and hydrogen peroxide wash. The right lower extremity prepped and draped in sterile fashion. At this point we paused for an operative timeout. We verify the patient's name, MR number and date of . We confirmed the side, site and proposed procedure with the consent form. We confirmed the patient had received appropriate antibiotics When everyone in the room was in agreement, we proceed with surgery. We started by removal dale, there was gush of bloody discharge of the wound. The discharge wasn't sancho purulent. We took 4 sets of cultures and tissues biopsy. We irrigated the wound using 9 liters of sterile saline solution. We applied the Cerement G antibiotics beads. The wound was closed using the 0, 2/0 PDS and 2/0 nylon for the skin. Sterile dressings were applied. The patient was moved back to the hospital bed, extubated and taken the PACU in stable condition. POST OPERATIVE PLAN: 1. Nonweightbearing to the right lower extremity 2. Continues admission for observation and antibiotics treatment 3. Return precautions explained to the patient at length with instructions to return to the clinic or emergency room with any worsening pain, fevers, chills, nausea or vomiting. 5. Patient will be discharged after being stable. 6. Patient will be scheduled to follow-up in the orthopedics faculty clinic in 2 weeks 7- Primary team and family are encouraged to call orthopedics with any questions/concerns Chaka José MD, Ph.D, FACS, FAAOS Board Certified Orthopedic Surgeon [employer] deformity [facility] Reconstruction Pediatric orthopedics Orthopedic Trauma Schedule appointment: [phone] ORT-ORTHOPAEDIC SURGERY STAFF [facility] 2024-10-19 07:43:18 BRIEF OPERATIVE NOTE Date of Surgery: 10/19/2024 Surgeons and Role: Chaka José Pre-Op Diagnosis: Right hip surgical site infection, hematoma / seroma Post-Op Diagnosis: Right hip surgical site infection, hematoma / seroma Procedures: INCISION AND DRAINAGE OF (Right) hip Any Complications Encounters: None Estimated Blood Loss: 10 ml Specimens Removed: ID Type Source Tests Collected by Time Destination 1 : Rule out Infection Tissue HIP, RIGHT SURGICAL PATHOLOGY EXAM Chaka José MD 10/19/2024 0758 A : Gram stain and fungs Swab HIP, RIGHT ASPIRATE OR ABSCESS CULTURE(AEROBIC/ANAEROBIC) Chaka José MD 10/19/2024 0804 Implants: None Patient's Condition: Stable Findings: Right hip surgical site infection, hematoma / seroma Any other important information: None Please see dictated operative report for additional detail. Chaka José MD, Ph.D, FACS, FAAOS Board Certified Orthopedic Surgeon [employer] Limb deformity & Reconstruction Pediatric orthopedics Orthopedic Trauma Schedule appointment: [phone] [facility] 2024-10-19 06:50:52 Summary: Vancomycin Monitoring Images from the original note were not included. General Vancomycin Note [facility] Clinical Pharmacist Consult Consulting Service: Vancomycin (Pharmacy to Dose) Pharmacy Vancomycin Therapeutic Monitoring Note Patient Name MRN Sex Unit Rick Escudero [id number] 1950 female Indication for vancomycin and goal Age Total Body Weight Skin and Soft Tissue Infection AUC/DIXON 400-600 mcg*hr/ mL 74 year old Wt Readings from Last 1 Encounters: 10/19/24 91.4 kg (201 lb 6.4 oz) Laboratory Data and Vancomycin Dosing CREATININE Date/Time Value Ref Range Status 10/19/2024 03:44 AM 0.54 0.50 - 1.04 mg/dL Final 10/18/2024 05:09 AM 0.54 0.50 - 1.04 mg/dL Final 10/17/2024 03:29 AM 0.63 0.50 - 1.04 mg/dL Final Date HD/CRRT? Dosing Regimen and frequency @ Times (mg) Vancomycin Level @ Time (mcg/mL) 10/15/24 No 1250mg IV Q24H @ 1906 - 10/16/24 No 1250mg IV Q24H @2058 6.3@10:39, 5.8@14:14 10/17/24 No 1250mg IV Q24H @2042 - 10/18/24 No 1250mg IV Q24H @ 2057 - 10/19/24 No 1250mg IV Q24H scheduled @ 14.1 @ 0344 - - Assessment & Plan Based on patient-specific levels and Bayesian monitoring, the current regimen is estimated to yield an AUC/DIXON of 469.1 mcg*hr/ml, which is therapeutic Plan is to: Con't vancomycin scheduled at a dose of: Vancomycin 1250 mg IV Q24H Predicted AUC = 469.1 mcg.h/mL and level = 15.9 Plan to draw next level on: _10/24/24_ @ _0400 Thank you for allowing pharmacy to participate in the care of this patient. Please feel free to contact us with any questions or concerns. Miguel A Youssef RP, PharmD [facility] Department of Pharmacy - [place] Phone: ADC: [phone] Miguel A Youssef [facility] 2024-10-19 05:29:33 Problem: Falls, Risk of Goal: Absence of falls Outcome: Progressing as expected Problem: Discharge Planning Goal: Adequate for discharge Outcome: Progressing as expected Goal: Effective communication Outcome: Progressing as expected Problem: Fluid Volume - Imbalanced Goal: Absence of signs and symptoms of imbalanced fluid volume Outcome: Progressing as expected Problem: Infection, Risk of or Actual Goal: Absence of infection Outcome: Progressing as expected Problem: Mental Status - Impaired, Risk of Goal: Mental status restored to baseline Outcome: Progressing as expected Goal: Absence of physical injury Outcome: Progressing as expected Problem: Nutrition Deficit Goal: Adequate nutritional intake Outcome: Progressing as expected Problem: Pain Goal: Control of pain at or below patient's documented comfort goal Outcome: Progressing as expected Goal: Reduction in pain sensation Outcome: Progressing as expected Problem: Respiratory Function - Impaired Goal: Able to cough effectively Outcome: Progressing as expected Goal: Adequate oxygenation Outcome: Progressing as expected Goal: Adequate work of breathing Outcome: Progressing as expected Goal: Patent airway Outcome: Progressing as expected Problem: Skin integrity Impaired (Risk or Actual) Goal: Wound healing Outcome: Progressing as expected Goal: Prevention of new skin breakdown Outcome: Progressing as expected Problem: Tissue Perfusion - Altered, Risk of Goal: Hemodynamically stable Outcome: Progressing as expected Problem: Skin integrity Impaired (Risk or Actual) Goal: Wound healing Outcome: Progressing as expected Goal: Prevention of new skin breakdown Outcome: Progressing as expected [facility] 2024-10-18 19:13:08 Problem: Falls, Risk of Goal: Absence of falls Outcome: Progressing as expected Problem: Discharge Planning Goal: Adequate for discharge Outcome: Progressing as expected Goal: Effective communication Outcome: Progressing as expected Problem: Fluid Volume - Imbalanced Goal: Absence of signs and symptoms of imbalanced fluid volume Outcome: Progressing as expected Problem: Mental Status - Impaired, Risk of Goal: Mental status restored to baseline Outcome: Progressing as expected Goal: Absence of physical injury Outcome: Progressing as expected Problem: Nutrition Deficit Goal: Adequate nutritional intake Outcome: Progressing as expected Problem: Pain Goal: Control of pain at or below patient's documented comfort goal Outcome: Progressing as expected Goal: Reduction in pain sensation Outcome: Progressing as expected Problem: Respiratory Function - Impaired Goal: Able to cough effectively Outcome: Progressing as expected Goal: Adequate oxygenation Outcome: Progressing as expected Goal: Adequate work of breathing Outcome: Progressing as expected Goal: Patent airway Outcome: Progressing as expected Problem: Skin integrity Impaired (Risk or Actual) Goal: Wound healing Outcome: Progressing as expected Goal: Prevention of new skin breakdown Outcome: Progressing as expected Problem: Tissue Perfusion - Altered, Risk of Goal: Hemodynamically stable Outcome: Progressing as expected Problem: Skin integrity Impaired (Risk or Actual) Goal: Wound healing Outcome: Progressing as expected Goal: Prevention of new skin breakdown Outcome: Progressing as expected Problem: Infection, Risk of or Actual Goal: Absence of infection Outcome: Not progressing as expected Indy Antunez RN [facility] 2024-10-18 08:27:26 Images from the original note were not included. General Vancomycin Note [facility] Clinical Pharmacist Consult Consulting Service: Vancomycin (Pharmacy to Dose) Pharmacy Vancomycin Therapeutic Monitoring Note Patient Name ANAYA Sex Unit Rick Escudero [id number] 1950 female Indication for vancomycin and goal Age Total Body Weight Skin and Soft Tissue Infection AUC/DIXON 400-600 mcg*hr/ mL 74 year old Wt Readings from Last 1 Encounters: 10/18/24 94 kg (207 lb 3.7 oz) Laboratory Data and Vancomycin Dosing CREATININE Date/Time Value Ref Range Status 10/18/2024 05:09 AM 0.54 0.50 - 1.04 mg/dL Final 10/17/2024 03:29 AM 0.63 0.50 - 1.04 mg/dL Final 10/16/2024 04:15 AM 0.68 0.50 - 1.04 mg/dL Final Date HD/CRRT? Dosing Regimen and frequency @ Times (mg) Vancomycin Level @ Time (mcg/mL) 10/15/24 No 1250mg IV Q24H @ 1907 - 10/16/24 No 1250mg IV Q24H @2058 6.3@10:39, 5.8@14:14 10/17/24 No 1250mg IV Q24H @3 - 10/18/24 No 1250mg IV Q24H due @1999 - - - - Assessment & Plan Based on patient-specific levels and Bayesian monitoring, the current regimen is estimated to yield an AUC/DIXON of 507.9 mcg*hr/ml, which is therapeutic Plan is to: Start vancomycin scheduled at a dose of: 1250mg IV Q24H Continue current regimen Plan to draw next level on: _10/19/24_ @ _0400 Thank you for allowing pharmacy to participate in the care of this patient. Please feel free to contact us with any questions or concerns. Nicole Crane RPH, PharmD [facility] Department of Pharmacy - [place] Phone: ADC: [phone] Nicole Crane [facility] 2024-10-18 05:20:35 Problem: Falls, Risk of Goal: Absence of falls Outcome: Progressing as expected Problem: Discharge Planning Goal: Adequate for discharge Outcome: Progressing as expected Goal: Effective communication Outcome: Progressing as expected Problem: Fluid Volume - Imbalanced Goal: Absence of signs and symptoms of imbalanced fluid volume Outcome: Progressing as expected Problem: Infection, Risk of or Actual Goal: Absence of infection Outcome: Progressing as expected Problem: Mental Status - Impaired, Risk of Goal: Mental status restored to baseline Outcome: Progressing as expected Goal: Absence of physical injury Outcome: Progressing as expected Problem: Nutrition Deficit Goal: Adequate nutritional intake Outcome: Progressing as expected Problem: Pain Goal: Control of pain at or below patient's documented comfort goal Outcome: Progressing as expected Goal: Reduction in pain sensation Outcome: Progressing as expected Problem: Respiratory Function - Impaired Goal: Able to cough effectively Outcome: Progressing as expected Goal: Adequate oxygenation Outcome: Progressing as expected Goal: Adequate work of breathing Outcome: Progressing as expected Goal: Patent airway Outcome: Progressing as expected Problem: Skin integrity Impaired (Risk or Actual) Goal: Wound healing Outcome: Progressing as expected Goal: Prevention of new skin breakdown Outcome: Progressing as expected Problem: Tissue Perfusion - Altered, Risk of Goal: Hemodynamically stable Outcome: Progressing as expected Problem: Skin integrity Impaired (Risk or Actual) Goal: Wound healing Outcome: Progressing as expected Goal: Prevention of new skin breakdown Outcome: Progressing as expected [facility] 2024-10-17 11:51:44 Problem: Falls, Risk of Goal: Absence of falls Outcome: Progressing as expected Problem: Discharge Planning Goal: Adequate for discharge Outcome: Progressing as expected Goal: Effective communication Outcome: Progressing as expected Problem: Fluid Volume - Imbalanced Goal: Absence of signs and symptoms of imbalanced fluid volume Outcome: Progressing as expected Problem: Infection, Risk of or Actual Goal: Absence of infection Outcome: Progressing as expected Problem: Mental Status - Impaired, Risk of Goal: Mental status restored to baseline Outcome: Progressing as expected Goal: Absence of physical injury Outcome: Progressing as expected Problem: Nutrition Deficit Goal: Adequate nutritional intake Outcome: Progressing as expected Problem: Pain Goal: Control of pain at or below patient's documented comfort goal Outcome: Progressing as expected Goal: Reduction in pain sensation Outcome: Progressing as expected Problem: Respiratory Function - Impaired Goal: Able to cough effectively Outcome: Progressing as expected Goal: Adequate oxygenation Outcome: Progressing as expected Goal: Adequate work of breathing Outcome: Progressing as expected Goal: Patent airway Outcome: Progressing as expected Problem: Skin integrity Impaired (Risk or Actual) Goal: Wound healing Outcome: Progressing as expected Goal: Prevention of new skin breakdown Outcome: Progressing as expected Problem: Tissue Perfusion - Altered, Risk of Goal: Hemodynamically stable Outcome: Progressing as expected Problem: Skin integrity Impaired (Risk or Actual) Goal: Wound healing Outcome: Progressing as expected Goal: Prevention of new skin breakdown Outcome: Progressing as expected [facility] 2024-10-17 04:08:17 Problem: Falls, Risk of Goal: Absence of falls Outcome: Progressing as expected Problem: Discharge Planning Goal: Adequate for discharge Outcome: Progressing as expected Goal: Effective communication Outcome: Progressing as expected Problem: Fluid Volume - Imbalanced Goal: Absence of signs and symptoms of imbalanced fluid volume Outcome: Progressing as expected Problem: Infection, Risk of or Actual Goal: Absence of infection Outcome: Progressing as expected Problem: Mental Status - Impaired, Risk of Goal: Mental status restored to baseline Outcome: Progressing as expected Goal: Absence of physical injury Outcome: Progressing as expected Problem: Nutrition Deficit Goal: Adequate nutritional intake Outcome: Progressing as expected Problem: Pain Goal: Control of pain at or below patient's documented comfort goal Outcome: Progressing as expected Goal: Reduction in pain sensation Outcome: Progressing as expected Problem: Respiratory Function - Impaired Goal: Able to cough effectively Outcome: Progressing as expected Goal: Adequate oxygenation Outcome: Progressing as expected Goal: Adequate work of breathing Outcome: Progressing as expected Goal: Patent airway Outcome: Progressing as expected Problem: Skin integrity Impaired (Risk or Actual) Goal: Wound healing Outcome: Progressing as expected Goal: Prevention of new skin breakdown Outcome: Progressing as expected Problem: Tissue Perfusion - Altered, Risk of Goal: Hemodynamically stable Outcome: Progressing as expected Problem: Skin integrity Impaired (Risk or Actual) Goal: Wound healing Outcome: Progressing as expected Goal: Prevention of new skin breakdown Outcome: Progressing as expected [facility] 2024-10-17 00:24:39 Small incision, well approximated dale intact. [facility] Celine Del Toro RN [facility] 2024-10-16 17:53:26 Per primary RN pt saturating aquacel Q2H on average. Underpads and bed linens noted to have large areas of serosanguinous drainage on them. Updated Dr Hammer. Orders rec'd for 2 hour post transfusion CBC to be drawn. Primary RN updated. Monica Chacon RN [facility] 2024-10-16 16:08:46 Images from the original note were not included. General Vancomycin Note [facility] Clinical Pharmacist Consult Consulting Service: Vancomycin (Pharmacy to Dose) Pharmacy Vancomycin Therapeutic Monitoring Note Patient Name ANAYA Sex Unit Rick Escudero [id number] 1950 female Indication for vancomycin and goal Age Total Body Weight Skin and Soft Tissue Infection AUC/DIXON 400-600 mcg*hr/ mL 74 year old Wt Readings from Last 1 Encounters: 10/16/24 85.4 kg (188 lb 3.2 oz) Laboratory Data and Vancomycin Dosing CREATININE Date/Time Value Ref Range Status 10/16/2024 04:15 AM 0.68 0.50 - 1.04 mg/dL Final 10/15/2024 05:41 PM 0.70 0.50 - 1.04 mg/dL Final 10/08/2024 04:19 AM 0.75 0.50 - 1.04 mg/dL Final Date HD/CRRT? Dosing Regimen and frequency @ Times (mg) Vancomycin Level @ Time (mcg/mL) 10/15/24 No 1250mg IV Q24H @ 1906 - 10/16/24 No 1250mg IV Q24H due @1999 6.3@10:39, 5.8@14:14 - - - - - Assessment & Plan Based on patient-specific levels and Bayesian monitoring, the current regimen is estimated to yield an AUC/DIXON of 462.7 mcg*hr/ml, which is therapeutic Plan is to: Start vancomycin scheduled at a dose of: 1250mg IV Q24H Continue current regimen Plan to draw next level on: _10/19/24_ @ _0400 Thank you for allowing pharmacy to participate in the care of this patient. Please feel free to contact us with any questions or concerns. Nicole Crane RPH, PharmD [facility] Department of Pharmacy - [place] Phone: ADC: [phone] [facility] 2024-10-16 13:21:48 Images from the original note were not included. Pharmacy Recommendations for Patient Admission: No recommendations. The [facility] medication list has been updated and reflected in the chart below. Please use the [facility] Med List for ordering home doses during admission. Patient Adherence: Adherent to all medications. Source(s) used in interview: Medical Records Interview limitations: None Medications Added Medications Removed Medications Modified Metoprolol XL 25mg Midodrine dose increased to 5mg TID Allergies as of 10/15/2024 (No Known Allergies) Pharmacy Updated [facility] Medication Sig aspirin 325 mg tablet Take 1 tablet by mouth in the morning and 1 tablet in the evening. Do all this for 30 days. methocarbamoL 500 mg tablet Take 1 tablet by mouth in the morning and 1 tablet at noon and 1 tablet in the evening. Do all this for 30 days. midodrine 2.5 mg tablet Take 1 tablet by mouth in the morning and 1 tablet in the evening. Do all this for 30 days. acetaminophen 325 mg tablet Take 2 tablets by mouth every 6 hours as needed for Pain (scale 1-3) or Temp > 38 C. atorvastatin 10 mg tablet Take 1 tablet by mouth at bedtime for 30 days. cholecalciferol, vitamin D3, 25 mcg (1,000 unit) tablet Take 1 tablet by mouth in the morning for 30 days. ferrous sulfate (IRON) 325 mg (65 mg iron) tablet Take 1 tablet by mouth in the morning for 30 days. gabapentin 300 mg capsule Take 1 capsule by mouth in the morning and 1 capsule at noon and 1 capsule in the evening. Do all this for 30 days. polyethylene glycol 3350 17 gram powder Take 1 Packet by mouth in the morning for 30 days. [Paused] metoprolol succinate XL 25 mg 24 hr tablet Take 1 tablet by mouth daily. furosemide 40 mg tablet daily. KLOR-CON M20 20 mEq tablet daily. levothyroxine 25 mcg tablet every morning. Outpatient Pharmacy Contact Information: [facility] [address] [place] [address] [address] [address] [facility] Portal to Registered [facility] Sites [facility] [address] Thank you for the opportunity to participate in the care of this patient. Nicole Crane RPH 1:17 PM, 10/16/2024 [facility] Department of Pharmacy - [place] Phone: ADC: [phone] [facility] 2024-10-16 11:38:09 Problem: Falls, Risk of Goal: Absence of falls Outcome: Progressing as expected Problem: Discharge Planning Goal: Adequate for discharge Outcome: Progressing as expected Goal: Effective communication Outcome: Progressing as expected Problem: Fluid Volume - Imbalanced Goal: Absence of signs and symptoms of imbalanced fluid volume Outcome: Progressing as expected Problem: Infection, Risk of or Actual Goal: Absence of infection Outcome: Progressing as expected Problem: Mental Status - Impaired, Risk of Goal: Mental status restored to baseline Outcome: Progressing as expected Goal: Absence of physical injury Outcome: Progressing as expected Problem: Nutrition Deficit Goal: Adequate nutritional intake Outcome: Progressing as expected Problem: Pain Goal: Control of pain at or below patient's documented comfort goal Outcome: Progressing as expected Goal: Reduction in pain sensation Outcome: Progressing as expected Problem: Respiratory Function - Impaired Goal: Able to cough effectively Outcome: Progressing as expected Goal: Adequate oxygenation Outcome: Progressing as expected Goal: Adequate work of breathing Outcome: Progressing as expected Goal: Patent airway Outcome: Progressing as expected Problem: Skin integrity Impaired (Risk or Actual) Goal: Wound healing Outcome: Progressing as expected Goal: Prevention of new skin breakdown Outcome: Progressing as expected Problem: Tissue Perfusion - Altered, Risk of Goal: Hemodynamically stable Outcome: Progressing as expected Problem: Skin integrity Impaired (Risk or Actual) Goal: Wound healing Outcome: Progressing as expected Goal: Prevention of new skin breakdown Outcome: Progressing as expected Problem: Falls, Risk of Goal: Absence of falls Outcome: Progressing as expected Problem: Discharge Planning Goal: Adequate for discharge Outcome: Progressing as expected Problem: Falls, Risk of Goal: Absence of falls Outcome: Progressing as expected Problem: Discharge Planning Goal: Adequate for discharge Outcome: Progressing as expected Goal: Effective communication Outcome: Progressing as expected Problem: Fluid Volume - Imbalanced Goal: Absence of signs and symptoms of imbalanced fluid volume Outcome: Progressing as expected Problem: Infection, Risk of or Actual Goal: Absence of infection Outcome: Progressing as expected Problem: Mental Status - Impaired, Risk of Goal: Mental status restored to baseline Outcome: Progressing as expected Goal: Absence of physical injury Outcome: Progressing as expected Problem: Nutrition Deficit Goal: Adequate nutritional intake Outcome: Progressing as expected Problem: Pain Goal: Control of pain at or below patient's documented comfort goal Outcome: Progressing as expected Goal: Reduction in pain sensation Outcome: Progressing as expected Problem: Respiratory Function - Impaired Goal: Able to cough effectively Outcome: Progressing as expected Goal: Adequate oxygenation Outcome: Progressing as expected Goal: Adequate work of breathing Outcome: Progressing as expected Goal: Patent airway Outcome: Progressing as expected Problem: Skin integrity Impaired (Risk or Actual) Goal: Wound healing Outcome: Progressing as expected Goal: Prevention of new skin breakdown Outcome: Progressing as expected Problem: Tissue Perfusion - Altered, Risk of Goal: Hemodynamically stable Outcome: Progressing as expected Problem: Skin integrity Impaired (Risk or Actual) Goal: Wound healing Outcome: Progressing as expected Goal: Prevention of new skin breakdown Outcome: Progressing as expected [employer] 2024-10-16 01:01:33 Problem: Falls, Risk of Goal: Absence of falls Outcome: Progressing as expected Problem: Discharge Planning Goal: Effective communication Outcome: Progressing as expected Problem: Fluid Volume - Imbalanced Goal: Absence of signs and symptoms of imbalanced fluid volume Outcome: Progressing as expected Problem: Mental Status - Impaired, Risk of Goal: Absence of physical injury Outcome: Progressing as expected Problem: Pain Goal: Reduction in pain sensation Outcome: Progressing as expected Problem: Respiratory Function - Impaired Goal: Adequate work of breathing Outcome: Progressing as expected Problem: Respiratory Function - Impaired Goal: Patent airway Outcome: Progressing as expected Problem: Skin integrity Impaired (Risk or Actual) Goal: Wound healing Outcome: Progressing as expected Problem: Skin integrity Impaired (Risk or Actual) Goal: Prevention of new skin breakdown Outcome: Progressing as expected Problem: Tissue Perfusion - Altered, Risk of Goal: Hemodynamically stable Outcome: Progressing as expected [facility] 2024-10-15 23:45:00 Patient arrived via stretcher in stable condition. Pt AO x4. Denies pain. No acute distress noted at this time. [facility] 2024-10-15 23:45:00 Patient transported via Stretcher to ICU room 2111. Patient transported on monitor, on O2 via N/C at 2 liters/ in, and with levophed gtt infusing via pump at 0.05 mcg/kg/min. Patient asleep-in sinus bradycardia 50's. Easily awakened, alert and appropriately responsive, with rise in heart rate to 60's. Care relinquished to Hayden KEVIN [facility] 2024-10-15 23:37:42 Nurse Report Hayden KEVIN in ICU. Chief complaint, assessment findings, infusion verify and orders reviewed. Plan of care discussed at bedside with patient and both nurses. Patient/family members verbalized understanding. JUNITO MAY RN [facility] 2024-10-15 23:00:00 Left subclavian triple lumen central line inserted by Dr Davis without complications. Portable chest xray done for confirmation of placement. IV Levophed gtt initiated at 0.05 mcg/kg/min as ordered for persistent hypotension and MAP <65-infusing via pump into 20G IV left upper arm placed by ultrasound. [facility] 2024-10-15 21:00:00 Patient converted to NSR. BP dropped to 83/70. Dr Davis in room assessing patient. [facility] 2024-10-15 20:30:00 Second liter NS initiated as ordered, BP 99/62 [facility] 2024-10-15 20:00:00 Amiodarone 150 mg IV administered as ordered for persistent narrow complex tachycardia. [facility] 2024-10-15 19:30:00 Midodrine 2.5 mg administered PO for persistent hypotension 87/59. Patient emains alert and responsive. [facility] 2024-10-15 18:20:00 1000 CC Ns bolus initiated as ordered for narrow complex tachycardia, hypotension. Digoxin 500 mcg administered slow IV as ordered. [facility] 2024-10-15 17:21:45 Arrives via EMS for elevated fever, concern for sepsis. Patient in [place] for rehab post fall with femur fracture 2 weeks ago. Patient has stapled surgical incision to right hip that is draining a large amount serosanguinous fluid. Patient had a wound vac in [facility] that became clogged this weekend and was removed. Patient became febrile and tachycardic today-temp 101.5f and HR 140's, hypotensive 88/45. Patient received 1 gm acetaminophen at facility, and 1 liter NS en route by EMS. Patient arrives with O2 patent at 2 liters/min. Left in place due to 88-90% sats on room air. Dr Davis at bedside to assess patient. Patient has 4+ pitting edema to both legs. 2+ palpable dorsalis pedal pulses present bilaterally. [facility] 2024-10-15 17:09:00 Associated Order(s): EKG-12 Lead ROUTINE ONCE; Critical Care; Central Line Pre-Procedure Diagnose(s): Atrial fibrillation with rapid ventricular response Post-Procedure Diagnose(s): Atrial fibrillation with rapid ventricular response [facility] Emergency Department Note Patient Name: Rick Escudero Date of : 1950 74 year old female Treatment Room: [facility] Primary Care Physician: Xiomy Le Patient Escorted by: Self [9] Mode of Arrival: EMS - Tato [21] EMS Treatment Prior to ED Arrival: Travel and Exposure Screening: Symptoms Does patient have any of these symptoms?: (not recorded) Exposure Screening Has patient had contact with someone with a communicable disease in the last month?: (not recorded) Diseases exposed to:: (not recorded) Is Patient ?: (not recorded) Exposure Date: (not recorded) Chief Complaint: Chief Complaint Patient presents with Fever History of Present Illness: History of Present Illness This patient who had right hip surgery on September 29 presents with complaint of fever. The patient presents from the SNF by EMS. The temperature was noted to be 100.8. Recorded at greater than 101 ?F staff at the SNF. The patient relates she has had some drainage from her surgical site wound and a wound VAC was in place prior to transport to the emergency department. History provided by: Patient Past Medical History/Immunizations: Past Medical History: Diagnosis Date Anemia, unspecified Displaced fracture of fifth metatarsal bone of right foot with routine healing Heart failure, unspecified Hypo-osmolality and hyponatremia Hypocalcemia Hypokalemia Hypomagnesemia Hypotension, unspecified Hypothyroid Muscle weakness (generalized) Myocardial infarction type 2 Obesity, unspecified Paroxysmal atrial fibrillation Polyosteoarthritis Rhabdomyolysis Unspecified fall, sequela Vitamin D deficiency Tetanus received in last 5 years: Unknown Childhood immunizations: Up-to-date Allergies: No Known Allergies Past Social History: Tobacco Use Former; Cigarettes: Quit 2009 Smokeless Tobacco: Former user of smokeless tobacco. Past Surgical History: Past Surgical History: Procedure Laterality Date FEMUR INTRAMEDULLARY NAILING Right 09/29/2024 Surgeon: Chaka José MD; Location: [facility] [place] Review of Systems: Review of Systems Constitutional: Positive for activity change, chills and fever. Negative for appetite change. HENT: Negative for ear pain and sore throat. Eyes: Negative for photophobia, pain and redness. Respiratory: Negative for cough and chest tightness. Cardiovascular: Negative for chest pain. Gastrointestinal: Negative for abdominal pain, diarrhea and vomiting. Genitourinary: Negative for hematuria and difficulty urinating. Musculoskeletal: Negative for neck pain and neck stiffness. Physical Exam: Physical Exam ED Triage Vitals [10/15/24 1727] Weight 85.5 kg (188 lb 9.6 oz) Actual or estimated Actual Height 1.524 m (5') BP 93/57 Pulse 155 Resp 24 Temp 38.2 ?C (100.8 ?F) Temp source Oral SpO2 91 % Measured on Room air Physical Exam Constitutional: Appearance: She is obese. HENT: Head: Normocephalic and atraumatic. Right Ear: Tympanic membrane, ear canal and external ear normal. There is no impacted cerumen. Left Ear: Tympanic membrane, ear canal and external ear normal. There is no impacted cerumen. Nose: Nose normal. No congestion. Mouth/Throat: Mouth: Mucous membranes are dry. Pharynx: Oropharynx is clear. No oropharyngeal exudate or posterior oropharyngeal erythema. Eyes: General: No scleral icterus. Right eye: No discharge. Left eye: No discharge. Conjunctiva/sclera: Conjunctivae normal. Cardiovascular: Rate and Rhythm: Tachycardia present. Rhythm irregularly irregular. Pulses: Normal pulses. Heart sounds: Normal heart sounds. Pulmonary: Effort: Tachypnea present. No respiratory distress. Breath sounds: Examination of the right-middle field reveals decreased breath sounds. Examination of the left-middle field reveals decreased breath sounds. Examination of the right-lower field reveals decreased breath sounds. Examination of the left-lower field reveals decreased breath sounds. Decreased breath sounds present. Abdominal: General: Bowel sounds are normal. There is no distension. Palpations: Abdomen is soft. There is no mass. Tenderness: There is no abdominal tenderness. Musculoskeletal: General: Swelling and tenderness present. Cervical back: No rigidity or tenderness. Right lower leg: Edema present. Left lower leg: Edema present. Comments: Swelling and tenderness to right thigh. Skin: General: Skin is warm. Capillary Refill: Capillary refill takes less than 2 seconds. Findings: Erythema present. Comments: There is superficial erythema to the right lateral thigh surrounding dale and surgical site. Neurological: Mental Status: She is alert and oriented to person, place, and time. Mental status is at baseline. Radiology: XR Chest 1 vw Preliminary Result EXAM: XR CHEST 1 VW COMPARISON: Same day CT chest HISTORY: central line insertion FINDINGS: The left-sided central venous catheter tip projects over the proximal SVC. The lung volumes are unchanged. No focal consolidation, pleural effusion or pneumothorax. The cardiac silhouette is unchanged. Calcified thoracic aorta. Left-sided subacute rib fractures are better characterized on the same day CT thorax examination. IMPRESSION The left sided central venous catheter tip projects over the proximal SVC. Stable chest. No new acute process. Preliminary Report Dictated by Resident: Len Vasquez CT Chest pulmonary angiogram Final Result CT SCAN OF THE CHEST WITH CONTRAST 10/15/2024 10:05 PM TECHNIQUE: Multidetector helical CT scan of the chest was performed following the intravenous administration of contrast. Coronal and sagittal reformats as well axial MIPs imaging were acquired. CLINICAL INFORMATION: Pulmonary embolism (PE) suspected, high prob COMPARISON: Correlation to chest radiograph dated 10/15/2024. FINDINGS: CARDIOVASCULAR: The enhancement of the pulmonary artery is adequate. No pulmonary emboli to the level of subsegmental arteries. Pulmonary trunk is mildly enlarged. The thoracic aorta is normal in caliber. No pericardial effusion. There is scattered moderate coronary artery calcification. LYMPH NODES: No thoracic adenopathy. Prominent left axillary lymph nodes are noted. MEDIASTINUM/ LOWER NECK: No mediastinal mass is seen.. No actionable thyroid nodule is present. BRONCHOPULMONARY/PLEURA: The central airways are patent. The pulmonary parenchyma is normal. No focal opacities. No suspicious nodules. . Right pleural plaque with calcifications. No pneumothorax. UPPER ABDOMEN: Left renal cysts. BONES/ CHEST WALL: Left fourth rib mildly displaced fracture with ongoing healing. Subacute to chronic nondisplaced fractures of the left thyroid and fifth ribs and the right ninth and 10th ribs. IMPRESSION No acute pulmonary embolism. Mildly enlarged pulmonary trunk, can be seen with pulmonary hypertension. Subacute mildly displaced left fourth rib fracture. Subacute to chronic nondisplaced fractures of the left thyroid and fifth ribs and the right ninth and 10th ribs. Right pleural plaque with calcification. XR CHEST 1 VW Preliminary Result EXAM: XR CHEST 1 VW 10/15/2024 5:29 PM HISTORY: 74 years old Female with fever TECHNIQUE: Single AP view of the chest. COMPARISON: Chest x-ray 09/27/2024 IMPRESSION FINDINGS / IMPRESSION: Lines/tubes and devices: None. Lungs and pleura: The lungs are adequately expanded. Mild bilateral perihilar interstitial and airspace opacities may represent viral versus atypical pneumonia. Blunting of bilateral costophrenic angles may represent trace bilateral pleural effusion. No pneumothorax is seen. Cardiomediastinal: The cardiomediastinal silhouette is normal accounting for technique. Musculoskeletal: No acute osseous abnormality. Preliminary Report Dictated by Resident: Xi Franco XR Femur 2 vw right Preliminary Result EXAM: XR FEMUR 2 VW RIGHT HISTORY: 74 years old Female with pain COMPARISON: X-ray right femur 09/27/2024, operative radiographs 09/29/2024 FINDINGS: Imaging of the right femur demonstrates intramedullary nail fixation of right intertrochanteric femoral neck fracture in near anatomic alignment. Fracture fragments are in similar position. The joint spaces are maintained. Soft tissue swelling over the right hip and lower extremity IMPRESSION Intramedullary nail fixation of right femur fracture in near anatomic alignment without evidence of acute hardware complication. Soft tissue swelling over the right hip and lower extremity. Preliminary Report Dictated by Resident: Xi Franco Lab Results: Lab Results CBC WITH DIFF - Abnormal Result Value Ref Range WBC 6.51 4.30 - 11.10 10*3/?L RBC 2.59 (*) 3.93 - 5.25 10*6/?L HGB 7.6 (*) 11.6 - 15.0 g/dL HCT 24.0 (*) 35.7 - 45.2 % MCV 92.7 80.6 - 95.5 fL MCH 29.3 25.9 - 32.8 pg MCHC 31.7 31.6 - 35.1 g/dL RDW-SD 54.0 (*) 39.0 - 49.9 fL RDW-CV 16.0 (*) 12.0 - 15.5 % PLT 179 166 - 358 10*3/?L MPV 11.2 9.5 - 12.9 fL NRBC/100 WBC 0.0 0.0 - 10.0 /100 WBCs NRBC x10 3 <0.01 10*3/?L SEG % 34 33 - 76 % BAND % 32 (*) 0 - 1 % META % 8 (*) <=0 % MYELO % 2 (*) <=0 % LYMPH % 14 14 - 54 % MONO % 10 (*) 0 - 4 % PLT ESTIMATE Normal Normal COMP. METABOLIC PANEL (12910) - Abnormal NA 133 (*) 135 - 145 mmol/L K 3.7 3.5 - 5.0 mmol/L CL 103 98 - 108 mmol/L CO2 TOTAL 24 23 - 31 mmol/L AGAP 6 2 - 16 BUN 26 (*) 7 - 23 mg/dL GLUCOSE 86 70 - 110 mg/dL CREATININE 0.70 0.50 - 1.04 mg/dL TOTAL BILI 0.8 0.1 - 1.1 mg/dL CALCIUM 7.0 (*) 8.6 - 10.6 mg/dL T PROTEIN 5.8 (*) 6.3 - 8.2 g/dL ALBUMIN 2.7 (*) 3.5 - 5.0 g/dL ALK PHOS 221 (*) 34 - 122 U/L ALTv 17 5 - 35 U/L AST(SGOT) 33 13 - 40 U/L eGFR 89.8 mL/min/1.73m2 TROPONIN I - Abnormal TROPONIN I 0.036 (*) <=0.034 ng/mL URINALYSIS - Abnormal APPEARANCE Clear Clear COLOR Yellow Yellow PH 5.0 4.8 - 8.0 SP GRAVITY 1.010 1.003 - 1.030 GLU U QUAL Normal Normal BLOOD Negative Negative KETONES Negative Negative PROTEIN Negative Negative UROBILIN 2.0 mg/dL (*) Normal BILIRUBIN Negative Negative NITRITE Negative Negative LEUK [place] Negative Negative RBC/HPF <1 0 - 3 HPF WBC/HPF 1 0 - 5 HPF BACTERIA Negative Negative SQ EPITH 3 HPF PROTHROMBIN TIME / INR - Abnormal PROTIME PATIENT 13.2 (*) 10.1 - 12.6 Seconds INR 1.1 LACTIC ACID WITH 2 HOUR REFLEX - Normal LACTIC ACID 1.17 0.50 - 2.20 mmol/L BLOOD CULTURE SCREEN - Normal Blood Culture-Aerobic Order in Process No growth Blood Culture-Anaerobic Order in Process No growth BLOOD CULTURE SCREEN - Normal Blood Culture-Aerobic Order in Process No growth Blood Culture-Anaerobic Order in Process No growth ACTIVATED PARTIAL THRMPLAS JADE - Normal APTT Patient 27 26 - 36 Seconds INFLUENZA A/B RSV COVID NAAT - Normal Influenza A NAAT Negative Negative Influenza B NAAT Negative Negative RSV by PCR Negative Negative SARS-CoV-2 NAAT Negative Negative TYPE AND SCREEN ABO & RH O POSITIVE IAT Negative URINE CULTURE EKG: If EKG completed, see Procedure Note. Orders and Treatments: Orders Placed This Encounter Procedures Critical Care Central Line XR CHEST 1 VW XR Femur [address] Chest pulmonary angiogram XR Chest 1 vw Lactic Acid with 2 Hour Reflex Blood Culture - Peripheral # 1 Blood Culture - Peripheral # 2 CBC With Diff Comp.. Metabolic Panel (66785) Troponin I Urine Culture Urinalysis ACTIVATED PARTIAL THRMPLAS JADE PROTHROMBIN TIME / INR Type and Screen - ONCE Routine Influenza A B RSV COVID NAAT CBC with Differential Basic Metabolic Panel (NA, K, CL, CO2, Glucose, BUN, Creatinine, CA) O2 Per Protocol Orders Placed This Encounter Medications NaCl 0.9% (NS) bolus infusion 1,000 mL vancomycin (VANCOCIN) 1,250 mg in NaCl 0.9% (NS) 250 mL V2B IV Piggyback ceFEPIme (MAXIPIME) 1,000 mg in NaCl 0.9% (NS) 100 mL MINI-BAG digoxin (LANOXIN) injection 500 mcg NaCl 0.9% (NS) bolus infusion 1,000 mL midodrine (PROAMATINE) tablet 2.5 mg amiodarone 150 mg/100 mL (NEXTERONE) RTU infusion 150 mg acetaminophen (OFIRMEV) IV piggyback 1,000 mg DISCONTD: NORepinephrine (LEVOPHED) 4,000 mcg in NaCl 0.9% (NS) 250 mL V2B IV infusion iopamidol (ISOVUE 370-500 mL) injection 75 mL enoxaparin (LOVENOX) injection 40 mg NORepinephrine (LEVOPHED) 4 mg/250 mL in 0.9% NaCl infusion First Provider Eval: ED Events Date/Time Event User Comments 10/15/241714 Medical Screening Begins TYRA DAVIS DO -- 10/15/241714 First Provider Evaluation TYRA DAVIS DO -- ED COURSE Diagnosis/Impression as of 10/15/24 2335 Fever in adult Elevated troponin Atrial fibrillation with rapid ventricular response Normochromic anemia Septic shock Results Procedures: EKG-12 Lead ROUTINE ONCE Date/Time: 10/15/2024 10:17 PM Performed by: Tyra Davis DO Authorized by: Tyra Davis DO ECG interpreted by ED Physician in the absence of a ship worker: yes Interpretation: Interpretation: abnormal Rate: ECG rate assessment: normal QRS: QRS axis: Left QRS intervals: Normal QRS conduction: normal ST segments: ST segments: Normal T waves: T waves: non-specific Q waves: Abnormal Q-waves: not present Critical Care Performed by: Tyra Davis DO Authorized by: Tyra Davis DO Critical care provider statement: Critical care time (minutes): 37 Critical care time was exclusive of: Separately billable procedures and treating other patients and teaching time Critical care was necessary to treat or prevent imminent or life-threatening deterioration of the following conditions: Cardiac failure, circulatory failure, sepsis, shock and dehydration Critical care was time spent personally by me on the following activities: Examination of patient, evaluation of patient's response to treatment, re-evaluation of patient's condition, review of old charts, ordering and review of radiographic studies, ordering and review of laboratory studies and ordering and performing treatments and interventions Care discussed with: admitting provider Central Line Date/Time: 10/15/2024 11:31 PM Performed by: Tyra Davis DO Authorized by: Tyra Davis DO Consent: Consent obtained: Verbal Consent given by: Patient Risks, benefits, and alternatives were discussed: yes Risks discussed: Incorrect placement, bleeding and infection [place] protocol: Procedure explained and questions answered to patient or proxy's satisfaction: yes Patient identity confirmed: Verbally with patient and arm band Pre-procedure details: Indication(s): central venous access Hand hygiene: Hand hygiene performed prior to insertion Sterile barrier technique: All elements of maximal sterile technique followed Skin preparation: Chlorhexidine Skin preparation agent: Skin preparation agent completely dried prior to procedure Sedation: Sedation type: None Anesthesia: Anesthesia method: Local infiltration Local anesthetic: Lidocaine 1% w/o epi Procedure details: Location: L subclavian Patient position: Supine Catheter size: 8.5 Fr Landmarks identified: yes Number of attempts: 1 Successful placement: yes Post-procedure details: Post-procedure: Dressing applied and line sutured Assessment: Blood return through all ports, free fluid flow, no pneumothorax on x-ray and placement verified by x-ray Procedure completion: Tolerated well, no immediate complications Complications: None MDM: Assessment & Plan Medical Decision Making Patient was evaluated for the complaint of Fever Diagnoses considered but not limited to: Dehydration Hypernatremia Hypoglycemia Hyponatremia Pneumonia Sepsis Urinary Tract Infection Volume Depletion Atrial fibrillation with rapid ventricular response Congestive Heart Failure Myocardial Infarction (acute) Pneumonia Pneumothorax Pulmonary Embolism. Labs:were ordered, and resulted, any relevant abnormalities were considered. Imaging:Ordered, and resulted, any relevant abnormalities were considered. Procedures:was performed. History, physical exam findings, results of visit, diagnosis, medication regimens and plan of future care have been considered. Additional MDM may be found in the ED course. Vital signs were rechecked before final disposition and determined to be stable. Amount and/or Complexity of Data Reviewed Labs: ordered. Decision-making details documented in ED Course. Radiology: ordered. Decision-making details documented in ED Course. Risk Prescription drug management. Decision regarding hospitalization. Flowsheet Documentation: Noted To be tachycardic and febrile. court recording monitor showed atrial fibrillation with rapid ventricular response. Initial heart rate 146. IV fluid was given along with IV digoxin. The patient was hypotensive and aggressive IV hydration was initiated. Antipyretic was given parenterally. The patient's fever did resolve. The blood pressure remained soft Amiodarone was given IV and the patient did convert to normal sinus rhythm. Levophed was required to support the patient's blood pressure. The admitting doctor was contacted regarding ICU admission. Scoring Tools: No data recorded Disposition/Condition: ED Disposition ED Disposition Admit - ICU Condition -- Comment -- Discharge Medications: Patient's Medications START taking these medications No medications on file CONTINUE taking these medications which have NOT CHANGED ACETAMINOPHEN 325 MG TABLET Take 2 tablets by mouth every 6 hours as needed for Pain (scale 1-3) or Temp > 38 C. ASPIRIN 325 MG TABLET Take 1 tablet by mouth in the morning and 1 tablet in the evening. Do all this for 30 days. ATORVASTATIN 10 MG TABLET Take 1 tablet by mouth at bedtime for 30 days. CHOLECALCIFEROL, VITAMIN D3, 25 MCG (1,000 UNIT) TABLET Take 1 tablet by mouth in the morning for 30 days. FERROUS SULFATE (IRON) 325 MG (65 MG IRON) TABLET Take 1 tablet by mouth in the morning for 30 days. FUROSEMIDE 40 MG TABLET daily. GABAPENTIN 300 MG CAPSULE Take 1 capsule by mouth in the morning and 1 capsule at noon and 1 capsule in the evening. Do all this for 30 days. KLOR-CON M20 20 MEQ TABLET daily. LEVOTHYROXINE 25 MCG TABLET every morning. METHOCARBAMOL 500 MG TABLET Take 1 tablet by mouth in the morning and 1 tablet at noon and 1 tablet in the evening. Do all this for 30 days. METOPROLOL SUCCINATE XL 25 MG 24 HR TABLET Take 1 tablet by mouth daily. MIDODRINE 2.5 MG TABLET Take 1 tablet by mouth in the morning and 1 tablet in the evening. Do all this for 30 days. POLYETHYLENE GLYCOL 3350 17 GRAM POWDER Take 1 Packet by mouth in the morning for 30 days. START taking Modified Medications as Prescribed No medications on file STOP taking these medications No medications on file Follow-up: Electronically signed by: Tyra Davis DO 10/15/242334 T [facility] 2024-10-08 15:49:12 Problem: Falls, Risk of Goal: Absence of falls 10/08/2024 1548 by Carine Contreras RN Outcome: Resolved 10/08/2024 1144 by Carine Contreras RN Outcome: Progressing as expected Problem: Skin integrity Impaired (Risk or Actual) Goal: Wound healing 10/08/2024 1548 by Carine Contreras RN Outcome: Resolved 10/08/2024 1144 by Carine Contreras RN Outcome: Progressing as expected Goal: Prevention of new skin breakdown 10/08/2024 1548 by Craine Contreras RN Outcome: Resolved 10/08/2024 1144 by Carine Contreras RN Outcome: Progressing as expected Problem: Pain Goal: Control of pain at or below patient's documented comfort goal 10/08/2024 1548 by Carine Contreras RN Outcome: Resolved 10/08/2024 1144 by Carine Contreras RN Outcome: Progressing as expected Goal: Reduction in pain sensation 10/08/2024 1548 by Carine Contreras RN Outcome: Resolved 10/08/2024 1144 by Carine Contreras RN Outcome: Progressing as expected Problem: Venous Thromboembolism, (actual or risk of) Goal: Absence of venous thromboembolism (Risk) 10/08/2024 1548 by Carine Contreras RN Outcome: Resolved 10/08/2024 1144 by Carine Contreras RN Outcome: Progressing as expected Problem: Discharge Planning Goal: Adequate for discharge 10/08/2024 1548 by Carine Contreras RN Outcome: Resolved 10/08/2024 1144 by Carine Contreras RN Outcome: Progressing as expected Goal: Effective communication 10/08/2024 1548 by Carine Contreras RN Outcome: Resolved 10/08/2024 1144 by Carine Contreras RN Outcome: Progressing as expected Problem: Infection Risk Goal: Absence of infection 10/08/2024 1548 by Carine Contreras RN Outcome: Resolved 10/08/2024 1144 by Carine Contreras RN Outcome: Progressing as expected Carine Contreras RN [facility] 2024-10-08 11:44:55 Problem: Falls, Risk of Goal: Absence of falls Outcome: Progressing as expected Problem: Skin integrity Impaired (Risk or Actual) Goal: Wound healing Outcome: Progressing as expected Goal: Prevention of new skin breakdown Outcome: Progressing as expected Problem: Pain Goal: Control of pain at or below patient's documented comfort goal Outcome: Progressing as expected Goal: Reduction in pain sensation Outcome: Progressing as expected Problem: Venous Thromboembolism, (actual or risk of) Goal: Absence of venous thromboembolism (Risk) Outcome: Progressing as expected Problem: Discharge Planning Goal: Adequate for discharge Outcome: Progressing as expected Goal: Effective communication Outcome: Progressing as expected Problem: Infection Risk Goal: Absence of infection Outcome: Progressing as expected [facility] 2024-10-07 23:49:41 Problem: Falls, Risk of Goal: Absence of falls Outcome: Progressing as expected Problem: Skin integrity Impaired (Risk or Actual) Goal: Wound healing Outcome: Progressing as expected Goal: Prevention of new skin breakdown Outcome: Progressing as expected Problem: Pain Goal: Control of pain at or below patient's documented comfort goal Outcome: Progressing as expected Goal: Reduction in pain sensation Outcome: Progressing as expected Problem: Venous Thromboembolism, (actual or risk of) Goal: Absence of venous thromboembolism (Risk) Outcome: Progressing as expected Problem: Discharge Planning Goal: Adequate for discharge Outcome: Progressing as expected Goal: Effective communication Outcome: Progressing as expected Problem: Infection Risk Goal: Absence of infection Outcome: Progressing as expected Cara Neal RN [facility] 2024-10-07 10:44:17 Problem: Falls, Risk of Goal: Absence of falls Outcome: Progressing as expected Problem: Skin integrity Impaired (Risk or Actual) Goal: Wound healing Outcome: Progressing as expected Goal: Prevention of new skin breakdown Outcome: Progressing as expected Problem: Pain Goal: Control of pain at or below patient's documented comfort goal Outcome: Progressing as expected Goal: Reduction in pain sensation Outcome: Progressing as expected Problem: Venous Thromboembolism, (actual or risk of) Goal: Absence of venous thromboembolism (Risk) Outcome: Progressing as expected Problem: Discharge Planning Goal: Adequate for discharge Outcome: Progressing as expected Goal: Effective communication Outcome: Progressing as expected Problem: Infection Risk Goal: Absence of infection Outcome: Progressing as expected Yana Chávez RN [facility] 2024-10-06 23:33:33 Problem: Falls, Risk of Goal: Absence of falls Outcome: Progressing as expected Problem: Skin integrity Impaired (Risk or Actual) Goal: Wound healing Outcome: Progressing as expected Goal: Prevention of new skin breakdown Outcome: Progressing as expected Problem: Pain Goal: Control of pain at or below patient's documented comfort goal Outcome: Progressing as expected Goal: Reduction in pain sensation Outcome: Progressing as expected Problem: Venous Thromboembolism, (actual or risk of) Goal: Absence of venous thromboembolism (Risk) Outcome: Progressing as expected Problem: Discharge Planning Goal: Adequate for discharge Outcome: Progressing as expected Goal: Effective communication Outcome: Progressing as expected Problem: Infection Risk Goal: Absence of infection Outcome: Progressing as expected [facility] 2024-10-06 09:04:26 Problem: Falls, Risk of Goal: Absence of falls Outcome: Progressing as expected Problem: Skin integrity Impaired (Risk or Actual) Goal: Wound healing Outcome: Progressing as expected Goal: Prevention of new skin breakdown Outcome: Progressing as expected Problem: Pain Goal: Control of pain at or below patient's documented comfort goal Outcome: Progressing as expected Goal: Reduction in pain sensation Outcome: Progressing as expected Problem: Venous Thromboembolism, (actual or risk of) Goal: Absence of venous thromboembolism (Risk) Outcome: Progressing as expected Problem: Discharge Planning Goal: Adequate for discharge Outcome: Progressing as expected Goal: Effective communication Outcome: Progressing as expected Problem: Infection Risk Goal: Absence of infection Outcome: Progressing as expected Berto Wiley RN [facility] 2024-10-06 06:21:38 Problem: Falls, Risk of Goal: Absence of falls Outcome: Progressing as expected Problem: Skin integrity Impaired (Risk or Actual) Goal: Wound healing Outcome: Progressing as expected Goal: Prevention of new skin breakdown Outcome: Progressing as expected Problem: Pain Goal: Control of pain at or below patient's documented comfort goal Outcome: Progressing as expected Goal: Reduction in pain sensation Outcome: Progressing as expected Problem: Venous Thromboembolism, (actual or risk of) Goal: Absence of venous thromboembolism (Risk) Outcome: Progressing as expected Problem: Discharge Planning Goal: Adequate for discharge Outcome: Progressing as expected Goal: Effective communication Outcome: Progressing as expected Problem: Infection Risk Goal: Absence of infection Outcome: Progressing as expected Marshall Aaron RN [facility] 2024-10-05 19:16:56 Problem: Falls, Risk of Goal: Absence of falls Outcome: Progressing as expected Problem: Skin integrity Impaired (Risk or Actual) Goal: Wound healing Outcome: Progressing as expected Goal: Prevention of new skin breakdown Outcome: Progressing as expected Problem: Pain Goal: Control of pain at or below patient's documented comfort goal Outcome: Progressing as expected Goal: Reduction in pain sensation Outcome: Progressing as expected Problem: Venous Thromboembolism, (actual or risk of) Goal: Absence of venous thromboembolism (Risk) Outcome: Progressing as expected Problem: Discharge Planning Goal: Adequate for discharge Outcome: Progressing as expected Goal: Effective communication Outcome: Progressing as expected Problem: Infection Risk Goal: Absence of infection Outcome: Progressing as expected Elzbieta Adrian RN [facility] 2024-10-04 22:19:07 Problem: Falls, Risk of Goal: Absence of falls Outcome: Progressing as expected Problem: Skin integrity Impaired (Risk or Actual) Goal: Wound healing Outcome: Not progressing as expected Goal: Prevention of new skin breakdown Outcome: Progressing as expected Problem: Pain Goal: Control of pain at or below patient's documented comfort goal Outcome: Progressing as expected Goal: Reduction in pain sensation Outcome: Progressing as expected Problem: Venous Thromboembolism, (actual or risk of) Goal: Absence of venous thromboembolism (Risk) Outcome: Progressing as expected Problem: Discharge Planning Goal: Adequate for discharge Outcome: Progressing as expected Goal: Effective communication Outcome: Progressing as expected Problem: Infection Risk Goal: Absence of infection Outcome: Progressing as expected Siobhan Moon RN [facility] 2024-10-04 13:38:53 Problem: Falls, Risk of Goal: Absence of falls Outcome: Progressing as expected Problem: Skin integrity Impaired (Risk or Actual) Goal: Wound healing Outcome: Progressing as expected Goal: Prevention of new skin breakdown Outcome: Progressing as expected Problem: Pain Goal: Control of pain at or below patient's documented comfort goal Outcome: Progressing as expected Goal: Reduction in pain sensation Outcome: Progressing as expected Problem: Venous Thromboembolism, (actual or risk of) Goal: Absence of venous thromboembolism (Risk) Outcome: Progressing as expected Problem: Discharge Planning Goal: Adequate for discharge Outcome: Progressing as expected Goal: Effective communication Outcome: Progressing as expected Problem: Infection Risk Goal: Absence of infection Outcome: Progressing as expected [facility] Candie Rankin RN [facility] 2024-10-04 00:01:05 Problem: Falls, Risk of Goal: Absence of falls Outcome: Progressing as expected Problem: Skin integrity Impaired (Risk or Actual) Goal: Wound healing Outcome: Progressing as expected Goal: Prevention of new skin breakdown Outcome: Progressing as expected Problem: Pain Goal: Control of pain at or below patient's documented comfort goal Outcome: Progressing as expected Goal: Reduction in pain sensation Outcome: Progressing as expected Problem: Venous Thromboembolism, (actual or risk of) Goal: Absence of venous thromboembolism (Risk) Outcome: Progressing as expected Problem: Discharge Planning Goal: Adequate for discharge Outcome: Progressing as expected Goal: Effective communication Outcome: Progressing as expected Problem: Infection Risk Goal: Absence of infection Outcome: Progressing as expected [facility] 2024-10-03 19:49:05 Problem: Falls, Risk of Goal: Absence of falls Outcome: Progressing as expected Problem: Skin integrity Impaired (Risk or Actual) Goal: Wound healing Outcome: Progressing as expected Goal: Prevention of new skin breakdown Outcome: Progressing as expected Problem: Pain Goal: Control of pain at or below patient's documented comfort goal Outcome: Progressing as expected Goal: Reduction in pain sensation Outcome: Progressing as expected Problem: Venous Thromboembolism, (actual or risk of) Goal: Absence of venous thromboembolism (Risk) Outcome: Progressing as expected Problem: Discharge Planning Goal: Adequate for discharge Outcome: Progressing as expected Goal: Effective communication Outcome: Progressing as expected [facility] 2024-10-03 16:44:40 Addendum created 10/03/24 8344 by Charley Varela MD Attestation recorded in Intraprocedure, Intraprocedure Attestations filed [facility] 2024-10-03 02:23:33 10/03/24 0000 Vitals Temp 36.4 ?C (97.6 ?F) (Simultaneous filing. User may not have seen previous data.) Temp source TEMPORAL ART (Simultaneous filing. User may not have seen previous data.) Pulse 53 Resp 20 BP 98/58 MAP (mmHg) 71 SpO2 95 % Shock Index 0.54 Cardiac Monitoring Base Cardiac Rhythm NSR Ectopy None RASS / BARS RASS 0 1. Acute Change or Fluctuating Course of Mental Status N Final CAM ICU Assessment Negative CAM ICU: no delirium. Pain and Comfort Assessment type Routine Scale used 0 - 10 Rating 0 Comfortable Yes Oxygen Therapy Oxygen mode (O2 device) None (room air) T Ke Garay RN [facility] 2024-10-02 22:40:41 10/02/24 2016 Vitals Pulse 78 Heart Rate (monitor) 74 Resp 22 SpO2 95 % Pulse ox adjusted to get accurate reading [facility] 2024-10-02 20:51:32 10/02/24 2015 Vitals Temp 36.6 ?C (97.8 ?F) Pulse 114 Heart Rate (monitor) 74 Resp 22 BP 113/54 MAP (mmHg) 72 SpO2 (!) 88 % Shock Index (!) 1.01 [facility] 2024-10-02 15:49:53 Problem: Falls, Risk of Goal: Absence of falls 10/02/2024 1549 by Berto Wiley, RN Outcome: Resolved 10/02/2024 1306 by Berto Wiley, RN Outcome: Progressing as expected Problem: Skin integrity Impaired (Risk or Actual) Goal: Wound healing 10/02/2024 1549 by Berto Wiley RN Outcome: Resolved 10/02/2024 1306 by Berto Wiley RN Outcome: Progressing as expected Goal: Prevention of new skin breakdown 10/02/2024 1549 by Berto Wiley RN Outcome: Resolved 10/02/2024 1306 by Berto Wiley RN Outcome: Progressing as expected Problem: Pain Goal: Control of pain at or below patient's documented comfort goal 10/02/2024 1549 by Berto Wiley RN Outcome: Resolved 10/02/2024 1306 by Berto Wiley RN Outcome: Progressing as expected Goal: Reduction in pain sensation 10/02/2024 1549 by Berto Wiley RN Outcome: Resolved 10/02/2024 1306 by Berto Wiley RN Outcome: Progressing as expected Problem: Venous Thromboembolism, (actual or risk of) Goal: Absence of venous thromboembolism (Risk) 10/02/2024 1549 by Berto Wiley RN Outcome: Resolved 10/02/2024 1306 by Berto Wiley RN Outcome: Progressing as expected Problem: Discharge Planning Goal: Adequate for discharge 10/02/2024 1549 by Berto Wiley RN Outcome: Resolved 10/02/2024 1306 by Berto Wiley RN Outcome: Progressing as expected Goal: Effective communication 10/02/2024 1549 by Berto Wiley RN Outcome: Resolved 10/02/2024 1306 by Berto Wiley RN Outcome: Progressing as expected Problem: Urinary Elimination - Impaired Goal: Return to baseline elimination pattern 10/02/2024 1549 by Berto Wiley RN Outcome: Resolved 10/02/2024 1306 by Berto Wiley RN Outcome: Progressing as expected Problem: Tissue Perfusion - Altered, Risk of Goal: Hemodynamically stable 10/02/2024 1549 by Berto Wiley RN Outcome: Resolved 10/02/2024 1306 by Berto Wiley RN Outcome: Progressing as expected [facility] 2024-10-02 13:06:37 Problem: Falls, Risk of Goal: Absence of falls Outcome: Progressing as expected Problem: Skin integrity Impaired (Risk or Actual) Goal: Wound healing Outcome: Progressing as expected Goal: Prevention of new skin breakdown Outcome: Progressing as expected Problem: Pain Goal: Control of pain at or below patient's documented comfort goal Outcome: Progressing as expected Goal: Reduction in pain sensation Outcome: Progressing as expected Problem: Venous Thromboembolism, (actual or risk of) Goal: Absence of venous thromboembolism (Risk) Outcome: Progressing as expected Problem: Discharge Planning Goal: Adequate for discharge Outcome: Progressing as expected Goal: Effective communication Outcome: Progressing as expected Problem: Urinary Elimination - Impaired Goal: Return to baseline elimination pattern Outcome: Progressing as expected Problem: Tissue Perfusion - Altered, Risk of Goal: Hemodynamically stable Outcome: Progressing as expected [facility] 2024-10-01 22:52:04 Problem: Falls, Risk of Goal: Absence of falls Outcome: Progressing as expected Problem: Skin integrity Impaired (Risk or Actual) Goal: Wound healing Outcome: Progressing as expected Goal: Prevention of new skin breakdown Outcome: Progressing as expected Problem: Pain Goal: Control of pain at or below patient's documented comfort goal Outcome: Progressing as expected Goal: Reduction in pain sensation Outcome: Progressing as expected Problem: Venous Thromboembolism, (actual or risk of) Goal: Absence of venous thromboembolism (Risk) Outcome: Progressing as expected Problem: Discharge Planning Goal: Adequate for discharge Outcome: Progressing as expected Goal: Effective communication Outcome: Progressing as expected Problem: Urinary Elimination - Impaired Goal: Return to baseline elimination pattern Outcome: Progressing as expected [facility] Fariba Chaidez RN [facility] 2024-10-01 14:49:55 Problem: Falls, Risk of Goal: Absence of falls Outcome: Progressing as expected Problem: Skin integrity Impaired (Risk or Actual) Goal: Wound healing Outcome: Progressing as expected Goal: Prevention of new skin breakdown Outcome: Progressing as expected Problem: Pain Goal: Control of pain at or below patient's documented comfort goal Outcome: Progressing as expected Goal: Reduction in pain sensation Outcome: Progressing as expected Problem: Venous Thromboembolism, (actual or risk of) Goal: Absence of venous thromboembolism (Risk) Outcome: Progressing as expected Problem: Discharge Planning Goal: Adequate for discharge Outcome: Progressing as expected Goal: Effective communication Outcome: Progressing as expected Problem: Urinary Elimination - Impaired Goal: Return to baseline elimination pattern Outcome: Progressing as expected Problem: Tissue Perfusion - Altered, Risk of Goal: Hemodynamically stable Outcome: Progressing as expected [facility] 2024-09-30 04:05:15 Problem: Falls, Risk of Goal: Absence of falls Outcome: Progressing as expected Problem: Skin integrity Impaired (Risk or Actual) Goal: Wound healing Outcome: Progressing as expected Goal: Prevention of new skin breakdown Outcome: Progressing as expected Problem: Pain Goal: Control of pain at or below patient's documented comfort goal Outcome: Progressing as expected Goal: Reduction in pain sensation Outcome: Progressing as expected Problem: Venous Thromboembolism, (actual or risk of) Goal: Absence of venous thromboembolism (Risk) Outcome: Progressing as expected Problem: Discharge Planning Goal: Adequate for discharge Outcome: Progressing as expected Goal: Effective communication Outcome: Progressing as expected Problem: Urinary Elimination - Impaired Goal: Return to baseline elimination pattern Outcome: Progressing as expected Chelly Seals RN [facility] 2024-09-29 19:02:00 Patient: Rick Escudero Procedure Summary Date: 09/29/24 Room / Location: [address] Anesthesia Start: 1210 Anesthesia Stop: 1534 Procedure: FEMUR INTRAMEDULLARY NAILING (Right: Leg) Diagnosis: (Fracture) Surgeons: Chaka José MD Responsible Provider: Charley Varela MD Anesthesia Type: General, Regional ASA Status: 3 Anesthesia Type: General, Regional Last vitals BP 90/68 (09/29/241844) Temp 35.6 ?C (96 ?F) (09/29/241834) Pulse 79 (09/29/241834) Resp 18 (09/29/241844) SpO2 98 % (09/29/241819) There were no known notable events for this encounter. Anesthesia Post Evaluation Patient location during evaluation: PACU Patient participation: complete - patient participated Level of consciousness: awake and alert Pain management: satisfactory to patient Airway patency: patent Cardiovascular status: acceptable and blood pressure returned to baseline Respiratory status: acceptable and room air Hydration status: acceptable Comments: Vitals stable after blood transfusion [facility] 2024-09-29 18:56:07 Name/ MRN / Age / Gender: Rick Escudero, [id number] 74 year old female BMI: Estimated body mass index is 32.08 kg/m? as calculated from the following: Height as of this encounter: 1.524 m (5'). Weight as of this encounter: 74.5 kg (164 lb 3.9 oz). Allergies: Patient has no known allergies. Last Vitals: BP Readings from Last 1 Encounters: 09/29/24 90/68 Pulse Readings from Last 1 Encounters: 09/29/24 79 SpO2 Readings from Last 1 Encounters: 09/29/24 98% Date of Surgery: 09/29/2024 Surgeon: Chaka José MD Procedure: FEMUR INTRAMEDULLARY NAILING (Right: Leg) OR Location: [facility] OR [facility] Anesthesia Preop Eval (physical exam) Anesthesia Preop: Chart Review and [id number] Anesthesia History Anesthesia History Negative Previous Anesthetics/Airways Cardiovascular Comments: ECHO- 09/28- Left ventricle is normal in size and function. There is mild concentric hypertrophy. Septal Wall motion is normal. No regional wall motion abnormalities. Normal systolic function with a visually estimated EF of 50 - 55%. There is impaired relaxation. 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 Hold on DOS. Phentermine: Alert [facility] anesthesiologist SGLT2 Inhibitors: "gliflozins" to be held for 3 days prior to elective surgeries GLP1 Agonosit: stop 7 days prior to surgery MAC Cases: Continue taking KYLE inhibitors and ARBs ASA Classification ASA: 3 Labs: Chemistry 09/29/2024 CBC 09/29/2024 135 105 14 173 (H) 26.73 (H) 8.6 (L) 161 (L) 3.8 23 0.52 26.1 (L) eGFR: 96.4 Date: 09/29/2024 ANC: 24.54 (H) Date: 09/29/2024 LFTs 09/29/2024 Coags AST: 56 (H) AP: 107 Prot: 5.8 (L) Ca: 8.3 (L) PT: 12.7 (H) Date: 09/27/2024 ALT: 25 T Devin: 0.8 Alb: 2.7 (L) PTT: 26 Date: 09/27/2024 PO4: - Date: - INR: 1.1 Date: 09/27/2024 Cardiac Endocrine & other pBNP: 894 Date: 09/27/2024 A1C: - Date: - Trop I: 0.032 Date: 09/28/2024 POCT A1C: - Date: - CK: 177 Date: 09/29/2024 TSH: - Date: - CKMB: - Date: - FT4: - Date: - LDL: 74 Date: 09/29/2024 Lact: 2.07 Date: 09/27/2024 Procal: - Date: - Respiratory -|-|-|-|- D-dimer: - ABG Date: - Date: - Miscellaneous Type and Screen: O POSITIVE Antibody: Negative Date: 09/29/2024 POCT : - Date: - Current Medications: No outpatient medications have been marked as taking for the 09/27/24 encounter (Hospital Encounter). Previous Surgeries: History reviewed. No pertinent surgical history. Anesthesia Physical Exam General no apparent distress and alert and oriented x 3 Neuro/Psych Dental edentoulous Abdominal Airway Mallampati score:II TM distance:> 5 cm Neck ROM: full Mouth opening:normal Extremity Pulmonary bilateral clear to auscultation Other Cardiovascular Rate: normal Anesthesia Plan ASA Status: 3 Anesthetic plan on DOS: General and Regional Plan to include: IV induction and ETT Anesthesia plan discussed with: patient or field service representative Post-Operative Analgesia: routine analgesia & antiemetics and nerve block for post-op analgesia Recovery Plan: PACU Additional comments: [facility] 2024-09-29 15:52:43 BRIEF OPERATIVE NOTE Date of Surgery: 09/29/2024 Surgeon: Chaka José Pre-Op Diagnosis: Right hip closed displaced, extremely comminuted, traumatic intertrochanteric hip fracture Post Op Diagnosis: Right hip hip closed displaced, extremely comminuted, traumatic intertrochanteric hip fracture Procedures: Right femur closed reduction with manipulation Right FEMUR INTRAMEDULLARY NAILING Any Complications Encounters: None Estimated Blood Loss: 1500 ml Specimens Removed: None Implants: [employer] CMN Patient's Condition: Stable Findings: Right hip hip closed displaced, traumatic intertrochanteric hip fracture Any other important information: None Please see dictated operative report for additional detail. Chaka José MD, Ph.D, FACS, FAAOS Board Certified Orthopedic Surgeon [employer] Pediatric orthopedics Orthopedic Trauma Schedule appointment: [phone] [facility] 2024-09-29 11:47:34 OPERATIVE NOTE Date of Surgery: 09/29/2024 Attending Physician : Chaka José M.D. [employer] Professor(s): None Pre-Operative Diagnosis: 1.Right hip hip closed displaced, extremely comminuted, traumatic intertrochanteric hip fracture 2. Chronic medical conditions: Osteoporosis Post Operative Diagnosis: 1.Right hip hip closed displaced, extremely comminuted, traumatic intertrochanteric hip fracture 2. Chronic medical conditions: Osteoporosis Procedure: Right hip open reduction and internal fixation with Cephalomedullary nail Anesthesia: General Antibiotics: Ancef 2g IV prior to incision Tourniquet: Not used EBL: 1500 ml IV Fluids: see anesthesia report Implants: [employer] CMN Other fluids: None Drains: None Specimens: None Complications: None Post-Op Condition: Stable INDICATIONS: Patient is a 74 year-old female gender who presented to [facility] orthopedics ED after sustaining ground level fall. The patient developed acute hip pain and inability to walk over right lower extremity. The patient was seen and examined in the emergency room and diagnosed with right hip closed displaced hip intertrochanteric hip fracture. she was indicated for operative fixation on urgent basis. Risks, benefits and alternatives were discussed at length with the patient. Risks included, but were not limited to the risk of: Infection, bleeding, damage to nerves, damage to blood vessels, nonunion, malunion, chronic pain, posttraumatic arthritis, need for additional procedures in the future, need for hardware removal, hardware failure, loss of extremity, cardiopulmonary complications and loss of life. Patient was given the option as questions and all questions were answered to his satisfaction. The patient wished to proceed with surgery. Informed consent was obtained. PROCEDURE IN DETAIL: On the day of surgery, the patient met in the preop holding area. The op site was marked. The patient received regional nerve block by anesthesia team. The patient was escorted back to the operating room. The patient was subsequently placed under general anesthesia and then turned into the fracture table in supine position. Extremities were placed in position to limit the risk of neurovascular compromise. All bony prominences well-padded. The patient's right lower extremity was preprepped with chlorhexidine scrub and hydrogen peroxide wash. Hip reduction was confirmed using fluoroscopy in two orthogonal views. The images showed severe displacement on lateral view. The right lower extremity then prepped and draped in the usual sterile fashion. At this point we paused for an operative timeout. We verify the patient's name, MR number and date of . We confirmed the side, site and proposed procedure with the consent form. We confirmed the patient had received appropriate antibiotics and had an SCD on the contralateral extremity for DVT prophylaxis. When everyone in the room was in agreement, we proceed with surgery. We pietro out our skin incision using fluoroscopy at the tip of greater trochanter on two views 3 finger breadth above the intersection point. We attempted multiple times reduction using the fracture table however the fracture wasn't reducible. We extended the incision and used bone clamps for reduction We localized our starting point using fluoroscopy and it was satisfactory. We use opening reamer down to the level of lesser trochanter. We then inserted the 11 mm nail under fluoroscopic guidance. The nail was advanced down the canal. We used guide wire for lag screw. The wire was center- center to both orthogonal views. We measured the length of lag screws to 90.mm. The distal locking screw screw measured 40 mm. Final fluoroscopic imaging showed a satisfactory hip reduction and appropriate fixation. We copiously irrigated the incision and then closed in layers using 0 Vicryl, 2-0 Monocryl and skin stapler. Sterile dressings were applied He was turned back on the hospital bed, extubated and taken the PACU in stable condition. POST OPERATIVE PLAN: 1. NON WB on the right lower extremity 2. Post Operative pain control per primary team, DVT prophylaxis for 30 days ,Ancef for 24 hours post OP 3. Patient will be discharged after being stable 4- Patient will be scheduled to follow-up in the orthopedics faculty clinic at [facility] 2 weeks [facility] 2024-09-29 10:55:42 Problem: Falls, Risk of Goal: Absence of falls Outcome: Progressing as expected Problem: Skin integrity Impaired (Risk or Actual) Goal: Wound healing Outcome: Progressing as expected Goal: Prevention of new skin breakdown Outcome: Progressing as expected Problem: Pain Goal: Control of pain at or below patient's documented comfort goal Outcome: Progressing as expected Goal: Reduction in pain sensation Outcome: Progressing as expected Problem: Venous Thromboembolism, (actual or risk of) Goal: Absence of venous thromboembolism (Risk) Outcome: Progressing as expected Problem: Discharge Planning Goal: Adequate for discharge Outcome: Progressing as expected Goal: Effective communication Outcome: Progressing as expected Problem: Urinary Elimination - Impaired Goal: Return to baseline elimination pattern Outcome: Progressing as expected Andria Rodriguez RN [facility] 2024-09-29 06:00:08 Problem: Falls, Risk of Goal: Absence of falls Outcome: Progressing as expected Problem: Skin integrity Impaired (Risk or Actual) Goal: Wound healing Outcome: Progressing as expected Goal: Prevention of new skin breakdown Outcome: Progressing as expected Problem: Pain Goal: Control of pain at or below patient's documented comfort goal Outcome: Progressing as expected Goal: Reduction in pain sensation Outcome: Progressing as expected Problem: Venous Thromboembolism, (actual or risk of) Goal: Absence of venous thromboembolism (Risk) Outcome: Progressing as expected Problem: Discharge Planning Goal: Adequate for discharge Outcome: Progressing as expected Goal: Effective communication Outcome: Progressing as expected Problem: Urinary Elimination - Impaired Goal: Return to baseline elimination pattern Outcome: Progressing as expected Celine Del Toro RN [facility] 2024-09-28 17:14:07 Summary: Pre-Op 74 year old female who presents with difficulty ambulating. Patient fell about 2 to 3 days ago and presesnts with Right intertrochanteric fracture. Upon EMS transfer to hospital was in Patient was found to be in atrial fibrillation with rapid ventricular response. No previous history of A-fib. Former smoker (2009). Patient was given IV beta-althea therapy and IV digoxin and patient converted to a normal sinus rhythm. Past History= mastectomy on rt side with lymph node removal, pt states in 2019. History of hypothyroidism; continue with levothyroxine. Pt upper and lower dentures but never wears, No probs anesthesia in past. Denies chest pains SOB. Unable to climb 2 flights of stairs= 2nd to unable to ambulate (walker) Previous smoker (2009) Denies GERD Denies any strokes or sz. Denies and blood clotting issues or blood thinning meds. Denies any kidney issues. MARY KATE 09/28/24= 50-55%. NSR @ 75. 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 [facility] 2024-09-28 09:54:20 Problem: Falls, Risk of Goal: Absence of falls Outcome: Progressing as expected Problem: Skin integrity Impaired (Risk or Actual) Goal: Wound healing Outcome: Progressing as expected Goal: Prevention of new skin breakdown Outcome: Progressing as expected Problem: Pain Goal: Control of pain at or below patient's documented comfort goal Outcome: Progressing as expected Goal: Reduction in pain sensation Outcome: Progressing as expected Problem: Venous Thromboembolism, (actual or risk of) Goal: Absence of venous thromboembolism (Risk) Outcome: Progressing as expected Problem: Discharge Planning Goal: Adequate for discharge Outcome: Progressing as expected Goal: Effective communication Outcome: Progressing as expected Problem: Urinary Elimination - Impaired Goal: Return to baseline elimination pattern Outcome: Progressing as expected Justyna Franco RN [facility] 2024-09-28 07:15:49 Patient unable to verify home medication list, verbalized [facility] in [facility] as her [facility]. T [facility] 2024-09-28 05:03:28 Problem: Falls, Risk of Goal: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
--- NOTE | 2024-12-07 16:48 | EDPHYS ---
Physician Documentation [facility] Name: Ilda Schwartz Age: 74 yrs Sex: Female : 1950 Arrival Date: 12/07/2024 Time: 14:55 Bed 4 Private MD: ED Physician Nikita Santiago HPI: 12/07 15:48 This 74 yrs old Female presents to ER via EMS with complaints of Wound Check. rn 15:48 EMS reports daughter called 911 to bring patient in for wound check. Patient has had a rn superficial decubitus skin change for a few weeks. Had hip replacement couple of months ago and lays in bed all day. Is getting home health and a little bit of physical therapy but essentially stays in bed. No acute changes. No fever. No drainage. Is a very superficial wound and no open wounds or ulcerations noted.. Historical: - Allergies: 15:20 No Known Allergies; hb - Immunization history:: Adult Immunizations up to date. - Infectious Disease History:: Denies. - Social history:: Smoking status: Patient denies any tobacco usage or history of. - Family history:: not pertinent. - Hospitalizations: : No recent hospitalization is reported. ROS: 15:48 Constitutional: Negative for fever, chills, and weight loss, Cardiovascular: Negative rn for chest pain, palpitations, and edema, Respiratory: Negative for shortness of breath, cough, wheezing, and pleuritic chest pain, Abdomen/GI: Negative for abdominal pain, nausea, vomiting, diarrhea, and constipation, MS/Extremity: Negative for injury and deformity, Skin: Positive for decubitus skin changes Neuro: Negative for headache, weakness, numbness, tingling, and seizure, Exam: 15:48 Constitutional: This is a well developed, well nourished patient who is awake, alert, rn and in no acute distress. Cardiovascular: Regular rate and rhythm. No pulse deficits. Respiratory: No increased work of breathing, no retractions or nasal flaring. Abdomen/GI: Soft, non-tender Skin: No open wounds, stage II decubitus change near sacrum more on the left side. No drainage or foul smell. Vital Signs: 14:55 BP 136 / 86; Pulse 86; Resp 15; Temp 97.4; Pulse Ox 100% on R/A; hb 20:46 BP 122 / 78; Pulse 57; Resp 19; Pulse Ox 94% on R/A; kd3 21:29 BP 110 / 69; Pulse 55; Resp 16; Pulse Ox 94% on R/A; kd3 MDM: 15:08 Medical Screening Exam initiated rn 16:45 Differential diagnosis: Superficial decubitus wound versus ulcer. Data reviewed: vital rn signs, nurses notes, and as a result, I will discharge patient. Counseling: I had a detailed discussion with the patient and/or guardian regarding the historical points, exam findings, and any diagnostic results supporting the discharge/admit diagnosis, the need for outpatient follow up, to return to the emergency department if symptoms worsen or persist or if there are any questions or concerns that arise at home. Special discussion: I discussed with the patient/guardian in detail that at this point there is no indication for admission to the hospital. It is understood, however, that if the symptoms persist or worsen the patient needs to return immediately for re-evaluation. Based on the history and exam findings, there is no indication for further emergent testing or inpatient evaluation. I discussed with the patient/guardian the need to see the primary care provider for further evaluation of the symptoms. Wound care. ED course: Patient with very superficial stage II ulcer. No evidence of infection. Normal vital signs. Afebrile. No acute changes. Will discharge home with local wound care and follow-up with wound care and PCP. Patient has home health already back and help.. Administered Medications: No medications were administered Disposition Summary: 12/07/24 16:48 Discharge Ordered Notes: Location: Home rn Problem: new rn Symptoms: have improved rn Condition: Stable rn Diagnosis - Sacral decubitus ulceration stage 2 rn Followup: rn - With: Private Physician - When: As needed - Reason: Recheck today's complaints, Re-evaluation by your physician Discharge Instructions: - Discharge Summary Sheet rn - How to Change Your Wound Dressing rn - Wound Care, Adult rn Forms: - Medication Reconciliation Form rn - Antibiotic learning technologist - Prescription Opioid Use rn - Patient Portal Instructions rn - Leadership Thank You Letter rn Signatures: Nikita Santiago MD MD rn Baxter, Heather, RN RN hb
--- NOTE | 2024-12-07 16:48 | ER ---
Nurse's Notes [facility] Name: Ilda Schwartz Age: 74 yrs Sex: Female : 1950 Arrival Date: 12/07/2024 Time: 14:55 Bed 4 Private MD: Diagnosis: Sacral decubitus ulceration stage 2 Presentation: 12/07 14:55 Chief complaint: EMS states: Daughter concerned that home health nurse is only putting hb dressing on buttock wound, want us to do something better for it. Coronavirus screen: At this time, the client does not indicate any symptoms associated with coronavirus-19. Ebola Screen: No symptoms or risks identified at this time. Initial Sepsis Screen: Does the patient meet any 2 criteria? No. Patient's initial sepsis screen is negative. Does the patient have a suspected source of infection? No. Patient's initial sepsis screen is negative. Risk Assessment: Do you want to hurt yourself or someone else? Patient reports no desire to harm self or others. Onset of symptoms was December 07, 2024. 14:55 Method Of Arrival: EMS: [facility] 14:55 Acuity: BOLA 4 hb Triage Assessment: 14:55 General: Appears in no apparent distress. Behavior is calm, cooperative. Pain: Pain hb currently is 3 out of 10 on a pain scale. EENT: No signs and/or symptoms were reported regarding the EENT system. Neuro: Level of Consciousness is awake, alert, obeys commands, Oriented to person, place, time, situation. Cardiovascular: Patient's skin is warm and dry. Respiratory: Respiratory effort is even, unlabored, Respiratory pattern is regular, symmetrical. GI: No signs and/or symptoms were reported involving the gastrointestinal system. : No signs and/or symptoms were reported regarding the genitourinary system. Derm: Skin is pink, warm \T\ dry. Musculoskeletal: No signs and/or symptoms reported regarding the musculoskeletal system. Historical: - Allergies: 15:20 No Known Allergies; hb - Immunization history:: Adult Immunizations up to date. - Infectious Disease History:: Denies. - Social history:: Smoking status: Patient denies any tobacco usage or history of. - Family history:: not pertinent. - Hospitalizations: : No recent hospitalization is reported. Screenin:32 [facility] ED Fall Risk Assessment (Adult) History of falling in the last 3 months, hb including since admission No falls in past 3 months (0 pts) Confusion or Disorientation No (0 pts) Intoxicated or Sedated No (0 pts) Impaired Gait Yes (1 pt) Mobility Assist Device Used Yes (1 pt) Altered Elimination Yes (1 pt) Score/Fall Risk Level 3 or more points = High Risk Oriented to surroundings, Maintained a safe environment, Educated pt \T\ family on fall prevention, incl call for assistance when getting out of bed. Abuse screen: Denies threats or abuse. Denies injuries from another. Nutritional screening: No deficits noted. Tuberculosis screening: No symptoms or risk factors identified. Assessment: 15:23 General: See triage assessment . hb 16:38 Reassessment: Patient appears in no apparent distress at this time. No changes from hb previously documented assessment. Patient and/or family updated on plan of care and expected duration. Pain level reassessed. 17:30 Reassessment: Patient appears in no apparent distress at this time. No changes from hb previously documented assessment. Patient and/or family updated on plan of care and expected duration. Pain level reassessed. 17:36 Reassessment: Spoke to Daughter Mary [phone]. Daughter stated she will be hb home approx 10pm. Informed her we will arrange for EMS transport since pt is bed bound and requested she call us when close to home so we can call for transport. 19:15 General: Pt cleaned of incontinence . kd3 19:27 Neuro: Level of Consciousness is awake, alert, obeys commands, Oriented to person, kd3 place, time, situation. Cardiovascular: Patient's skin is warm and dry. Respiratory: Airway is patent Trachea midline Respiratory effort is even, unlabored, Respiratory pattern is regular, symmetrical. 20:45 General: Pt provided an additional warm blanket. PT spoke with Mary who states she kd3 is still not home yet. Thomas emptied. . 21:16 General: Attempted to call Mary for an update on her status. No answer. . kd3 21:23 General: This Rn spoke with Mary Schwartz who confirms that her son will be kd3 present at home to receive the patient. . Vital Signs: 14:55 BP 136 / 86; Pulse 86; Resp 15; Temp 97.4; Pulse Ox 100% on R/A; hb 20:46 BP 122 / 78; Pulse 57; Resp 19; Pulse Ox 94% on R/A; kd3 21:29 BP 110 / 69; Pulse 55; Resp 16; Pulse Ox 94% on R/A; kd3 ED Course: 14:56 Patient arrived in ED. em1 15:08 Nikita Santiago MD is Attending Physician. rn 15:20 Triage completed. hb 15:20 Arm band placed on. hb 15:32 Patient has correct armband on for positive identification. Bed in low position. Call hb light in reach. Provided Education on: call light . 15:50 Client placed on continuous cardiac and pulse oximetry monitoring. NIBP monitoring dd2 applied. Door closed. Noise minimized. Warm blanket given. Pillow given. Verbal reassurance given. 15:50 No provider procedures requiring assistance completed. Patient maintains SpO2 dd2 saturation greater than 95% on room air. 19:15 Trena Valdez, RN is Primary Nurse. kd3 22:25 IV discontinued, intact, bleeding controlled, No redness/swelling at site. Pressure kd3 dressing applied. Administered Medications: No medications were administered Medication: 16:38 VIS not applicable for this client. dd2 Outcome: 16:48 Discharge ordered by . rn 22:24 Discharged to home via ambulance, kd3 22:24 Condition: stable 22:24 Discharge instructions given to patient, Instructed on discharge instructions, follow up and referral plans. Demonstrated understanding of instructions, follow-up care, 22:25 Patient left the ED. kd3 Signatures: Nikita Santiago MD MD rn Martinez, Eric em1 Melodie Johnson RN RN hb Doucette, Kyli, RN RN kd3 JASMYN EDEN RN RN dd2 Corrections: (The following items were deleted from the chart) 19:27 19:15 General: Pt cleaned of incontinence . kd3 kd3
[2024-12-07 22:57] VITALS: TEMP 97.4
[2024-12-07 23:00] VITALS: O2SAT 94
[2024-12-07 23:01] VITALS: BP 110/69
== END 2024-12-07 22:25 | disposition home or self-care (01) ==
LOC: ER 14:55
DX: L89.152 Pressure ulcer of sacral region, stage 2 (principal)
CPT/HCPCS: 99284